=== PATIENT | male | born 1940 | race Caucasian/White ===

== ENCOUNTER → 2018-01-08 10:40 | Outpatient (CLI) | payer MEDICARE, SELFPAY ==
[2018-01-08 11:49] LABS: PSA,Total- Diagnostic 1.96 ng/mL (0.0-4.0)
== END ==
PROVIDERS: Visit Provider Urology
DX: C61 Malignant neoplasm of prostate (principal)
CPT/HCPCS: 36415; 84153

== ENCOUNTER → 2018-02-05 16:54 | Outpatient (CLI) | payer MEDICARE, SELFPAY ==
--- NOTE | 2018-02-05 08:45 | FLU_PTH ---
PATIENT: JEANNA ALONZO LOC: [facility] U#:[id number] AGE/SX: 84/M ROOM: RE02/05/[address]: Dr. Ameya Rebolledo MD : 1940 BED: DIS: SPEC #: [id number] RECD: 02/05/18 15:00 STATUS: LOIS ROD #: [id number] JUDY: 02/05/18 08:[address]: Ameya Rebolledo DEPT: CYTOLOGY RECD BY: Arsenio Peters ENTERED: 02/06/18 09:21 SP TYPE: Fluid OTHR DR: Dr. Maria Eugenia Garcia, Tissues: Urine Procedures: Pap Stain (control) Special Stain Group II Surgery Specimen Level IV Cytospin Fluid HEADER OPERATION: Not noted PRE-OP DIAGNOSIS: R31.0, Z85.46 TISSUE SUBMITTED: Urine for cytology DIAGNOSIS CYTOLOGY Urine for cytology (cytospin): Rare atypical urothelial cells present. AM:rg 5/10/18 COMMENT The findings are nonspecific and could represent a variety of conditions including infection, urolithiasis, instrumentation and low grade urothelial neoplasm. Clinical correlation is necessary. CYTOLOGY STUDY Slides are reviewed. CYTOLOGY GROSS Received is 40 ml of clear yellow fluid labeled with the patient's name and and designated per the requisition as urine. Submitted for cytology preparation. / CC:cc 02/06/18 TC:? CPT: 13188
[2018-02-05 16:56] LABS: Cytology, Body Fluid / CSF SEE PATHOLOGY REPORT
== END ==
PROVIDERS: Visit Provider Urology
DX: R31.0 Gross hematuria (principal); Z85.46 Personal history of malignant neoplasm of prostate
CPT/HCPCS: 88108; 88305; 88313

== ENCOUNTER 2018-05-23 18:02 | Emergency (ER) | payer MEDICARE, SELFPAY ==
[2018-05-23 18:03] VITALS: BP 116/61; PULSE 80; RESP 17; TEMP 36.7; O2SAT 99; BMI 27.3
--- NOTE | 2018-05-23 18:49 | ED.VISSUMM ---
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 Patient states that one month ago he felt like he had torn his right biceps. He was able to continue normal activity, however today while using pruning michele and abducting his arms together against the force of pruning trees, he felt and heard a pop in his right upper arm. He now has pain and swelling in the bicep. Pain is worse with flexion and radiates into the anterior and around into the posterior shoulder. He denies any other injuries. Physical Examination: Patient is afebrile and hemodynamically stable. Well-nourished and well-developed in no distress. Examination of the upper extremities shows asymmetry in the appearance of the biceps, most pronounced with supination of the forearm resulting in gloria bicep on the right. Patient has weakness with flexion and supination of the right upper extremity. Radial pulses 2+. Full range of motion of the shoulder, wrist and fingers. Unable to definitively palpate the biceps tendon. Test Results: [] Emergency Department Course and Treatment: Presentation is most consistent with a proximal biceps tendon rupture. Patient will use ice and [id number] pain medications as needed for pain. He will not bear any weight with the arm until he follows up with his orthopedic physician, for which he already has an appointment tomorrow. He was given a sling to use for comfort. Patient was discharged home. Treatment Plan: [] Disposition: [] Impression: ruptured biceps tendon, right arm This note was generated with Swipp dictation software. It may contain incorrect words, spelling, and punctuation that were not noted in review of the chart prior to signing ED Disposition - Plan for ED Patient: Disposition: Home or Assisted Living Chief Complaint: Upper Extremity Injury Instructions: ED Torn Rotator Cuff Referrals: Maria Eugenia Garcia DO [Primary Care Provider] - Richard Sargent DO [STAFF PHYSICIAN] - 1 Day Additional Instructions: You may have a torn biceps tendon in your right arm. Please keep your appointment with Dr. Rushing as scheduled for tomorrow. Ice your upper arm and wear the sling as needed for comfort. Avoid lifting any weight with the right arm and avoid too much movement. You may use Tylenol or ibuprofen as needed for pain. If you have any worsening of your condition or any new concerning symptoms, please return immediately to the emergency department for another evaluation.
--- NOTE | 2018-05-23 18:52 | DCINST.ED_ITS ---
ED Disposition - Plan for ED Patient: Disposition: Home or Assisted Living Chief Complaint: Upper Extremity Injury Instructions: ED Torn Rotator Cuff Referrals: Maria Eugenia Garcia DO [Primary Care Provider] - Richard Sargent DO [STAFF PHYSICIAN] - 1 Day Additional Instructions: You may have a torn biceps tendon in your right arm. Please keep your appointment with Dr. Rushing as scheduled for tomorrow. Ice your upper arm and wear the sling as needed for comfort. Avoid lifting any weight with the right arm and avoid too much movement. You may use Tylenol or ibuprofen as needed for pain. If you have any worsening of your condition or any new concerning symptoms, please return immediately to the emergency department for another evaluation.
[2018-05-23 19:00] VITALS: RESP 16
--- NOTE | 2018-05-23 19:00 | ED.RN ---
REVIEWED D/C INSTRUCTIONS, FOLLOW UP CARE, AND S/S THAT WOULD WARRANT A RETURN TO THE ED WITH PT. PT VERBALIZED AN UNDERSTANDING AND DENIES FURTHER QUESTIONS FOR THIS RN. PT SKIN P/W/D, RESP EVEN AND UNLABORED, PT A&O X 3, NO DISTRESS NOTED. PT AMBULATED OUT OF ED, GAIT STEADY.
== END 2018-05-23 19:02 | disposition home or self-care (01) ==
PROVIDERS: Emergency Provider Emergency Medicine
DX: M66.321 Spontaneous rupture of flexor tendons, right upper arm (principal); I10 Essential (primary) hypertension; E11.9 Type 2 diabetes mellitus without complications; Z79.84 Long term (current) use of oral hypoglycemic drugs; Z79.899 Other long term (current) drug therapy
CPT/HCPCS: 99283

== ENCOUNTER → 2018-07-12 09:50 | Outpatient (CLI) | payer MEDICARE, SELFPAY ==
[2018-07-12 11:12] LABS: PSA,Total- Diagnostic 2.09 ng/mL (0.0-4.0)
== END ==
PROVIDERS: Referring Provider Urology; Visit Provider Urology
DX: C61 Malignant neoplasm of prostate (principal)
CPT/HCPCS: 36415; 84153

== ENCOUNTER → 2018-07-24 07:21 | Outpatient (CLI) | payer MEDICARE, SELFPAY ==
--- NOTE | 2018-07-24 07:25 | NM_ITS ---
CLINICAL: 77-year-old male with reported history of carcinoma of the prostate. WHOLE BODY 99m Tc MDP RADIONUCLIDE BONE SCINTIGRAPHY COMPARISON: Previous whole body bone scintigraphy report 10/14/2010 FINDINGS: Following the intravenous administration of 26.6 mCi of 99m Tc MDP, whole body bone images reveal: 1. Increased radiopharmaceutical concentration is currently identified in the 10th-11th thoracic vertebra posteriorly on the left and right, third-fifth lumbar vertebra posteriorly on the left and right. 2. Enhanced uptake is defined in the sternoclavicular compartments of both shoulders, first cervical vertebra anteriorly-posteriorly on the left and right, bilateral wrist articulations, right-left hands, knees bilaterally, the bilateral elbows. 3. The remaining skeletal structures are scintigraphically unremarkable with normal-appearing renal images and urinary bladder activity identified. Prominent uptake is noted at the sternomanubrial synchondrosis. NM/Bone Scan Whole Body IMPRESSION: 1. The increase in radiopharmaceutical concentration currently defined in the lower thoracic and lower lumbar spine may be further investigated with plain radiography in the setting of known prostate carcinoma. 2. Degenerative arthritis appears evident in the bilateral shoulders, cervical spine, right and left wrists, both hands, bilateral knees, the right-left elbows. 3. Overall compared to the previous whole body bone scintigraphy study report dated 10/14/2010, the increase in radiopharmaceutical concentration currently identified in the thoracic and lumbar spine warrants further relapse vesication. Electronically Signed: Dave Gupta DO at 23:08 EDT Tel , Service support ,
== END ==
PROVIDERS: Referring Provider Urology; Visit Provider Urology
DX: C61 Malignant neoplasm of prostate (principal)
CPT/HCPCS: 78306

== ENCOUNTER → 2018-07-25 09:46 | Outpatient (CLI) | payer MEDICARE, SELFPAY ==
--- NOTE | 2018-07-25 09:49 | RAD_ITS ---
STUDY: X-RAY - LUMBAR SPINE REASON FOR EXAM: Male, 77 years old. Chronic pain TECHNIQUE: 5 view(s) of the lumbar spine were obtained. COMPARISON: None FINDINGS: Normal lumbar lordosis. There is no substantial scoliosis. There is a normal alignment of the vertebrae. There is multilevel endplate spondylosis of the lumbar vertebrae. There is multi-level degenerative disc disease with multi-level disc space narrowing. Numerous surgical clips are seen in the abdomen and pelvis. RAD/L/S Spine Min 4 Views IMPRESSION: Degenerative changes of the spine, as detailed above. No definite lytic or blastic osseous changes are seen. Electronically Signed: Scotty Lee MD at 17:05 EDT , Service support ,
--- NOTE | 2018-07-25 09:49 | RAD_ITS ---
STUDY: X-RAY - THORACIC SPINE REASON FOR EXAM: Male, 77 years old. Chronic pain TECHNIQUE: 3 view(s) of the thoracic spine were obtained. COMPARISON: None. FINDINGS: Normal kyphosis of the thoracic spine. There is no substantial scoliosis. There is multilevel endplate spondylosis of the thoracic vertebrae. Normal disc space heights. The soft tissue structures are unremarkable. RAD/Thoracic Spine 3 Views IMPRESSION: Diffuse endplate spondylosis of the thoracic spine. No definite lytic or blastic osseous changes are seen. There is no evidence of fracture or subluxation. Electronically Signed: Scotty Lee MD at 16:55 EDT , Service support ,
== END ==
PROVIDERS: Visit Provider Urology
DX: R93.89 Abnormal findings on diagnostic imaging of other specified body structures (principal); C67.9 Malignant neoplasm of bladder, unspecified; C61 Malignant neoplasm of prostate
CPT/HCPCS: 72072; 72110

== ENCOUNTER → 2019-01-17 | Outpatient (CLI) | payer MEDICARE, SELFPAY ==
[2019-01-17 09:16] LABS: PSA,Total- Diagnostic 2.36 ng/mL (0.0-4.0)
== END | disposition home or self-care (01) ==
LOC: LAB 08:30
PROVIDERS: Referring Provider Urology; Visit Provider Urology
DX: C61 Malignant neoplasm of prostate (principal)
CPT/HCPCS: 36415; 84153

== ENCOUNTER 2019-05-02 21:47 | Emergency (ER) | payer MEDICARE, SELFPAY ==
[2019-05-02 21:47] VITALS: BP 124/70; PULSE 79; RESP 15; TEMP 36.7; BMI 26.6
--- NOTE | 2019-05-02 22:50 | ED.VIS.UPPEX ---
History of Present Illness Chief Complaint: Upper Extremity Injury Informant: Patient Occurred: Yesterday Mechanism/Context: Injury Context: Sudden Onset - while swinging a golf club Timing: Continuous Quality of Pain: Aching Location: left forearm Current Severity: Mild Maximum Severity: Moderate Worsened by: extension of wrist, palpation affected area Relieved by: remaining still Associated Symptoms: Negative for: Parasthesia, Weakness, Loss of Funtion Narrative: Patient states he was golfing yesterday, suddenly felt a pop in the volar aspect of his right proximal forearm, and had pain since. It started bruising. He is on Plavix. He had no direct trauma to the area. He denies any numbness or tingling distally, he has been able to fully use his right upper extremity since this. He is right-hand dominant. He initially applied heat to the area after his advised this, the bruising became worse. He has been applying ice since. - Past Medical History (1) History of esophageal reflux Status: Chronic (2) History of gastrointestinal hemorrhage Status: Chronic (3) History of hypertension Status: Chronic (4) History of prostate cancer Status: Chronic (5) Old [place] (myocardial infarction) Status: Chronic (6) Type II diabetes mellitus Status: Chronic Past Medical History - Allergies and Home Meds Allergies/Adverse Reactions: Allergies chlorhexidine Allergy (Verified 05/02/19 21:50) Rash Penicillins Allergy (Verified 05/02/19 21:50) Unknown Sulfa (Sulfonamide Antibiotics) Allergy (Verified 05/02/19 21:50) Unknown Primary Care Physician: Maria Eugenia Garcia DO [Primary Care Provider] - Surgical History: TURP, aortic aneurysm repair 2002, of right renal hilar tumor 2008, 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 The tenderness is not severe. I can feel no focal nodule or defect subcutaneously. There is no tenderness at the common tendon, or on any of the bony prominences of the elbow or wrist. He has full range of motion of the elbow, wrist, and FDS/FDP of all fingers of the right hand. He has full extension, he states it increases his pain a little, all compartments are soft. Skin: - - Ecchymosis volar right forearm proximal half. No signs of infection or cellulitis. No signs of trauma. Neurological: Alert, Oriented x3, Cranial nerves II-XII grossly intact, Normal Strength, Normal Sensation, Normal Gait Psychological: Normal affect, Normal Mood Diagnostic/Tx/Re-eval - Medical Decision Making Patient is reassured, this is likely a tear of the muscle belly and not disruption of any of the tendons. Since he has no bony tenderness or defect of the tendons I do not think he needs x-rays at this time. An MRI would probably show him the answer, but may not even be indicated since he has full function. I recommend ice application, Tylenol as needed, following up with orthopedics. He is comfortable with that plan. ED Disposition - Plan for ED Patient: Disposition: Home or Assisted Living Diagnosis: Other injury of other flexor muscle, fascia and tendon at forearm level, right arm, initial encounter Instructions: MUSCLE STRAIN, Extremity Referrals: Jose Luis Borja MD [STAFF PHYSICIAN] - (call for appt) Additional Instructions: May be muscle tear given all of the bruising. Let pain be her guide and limit your activities.
== END 2019-05-02 23:10 | disposition home or self-care (01) ==
PROVIDERS: Emergency Provider Emergency Medicine
DX: S59.811A Other specified injuries right forearm, initial encounter (principal); K21.9 Gastro-esophageal reflux disease without esophagitis; I10 Essential (primary) hypertension; I25.2 Old myocardial infarction; E11.9 Type 2 diabetes mellitus without complications; Z85.46 Personal history of malignant neoplasm of prostate; Z79.4 Long term (current) use of insulin; Z79.02 Long term (current) use of antithrombotics/antiplatelets; Z79.82 Long term (current) use of aspirin; Z79.899 Other long term (current) drug therapy; X50.0XXA Overexertion from strenuous movement or load, initial encounter; Y93.53 Activity, golf; Y92.39 Other specified sports and athletic area as the place of occurrence of the external cause; Y99.8 Other external cause status
CPT/HCPCS: 99282

== ENCOUNTER → 2019-07-09 | Outpatient (CLI) | payer MEDICARE, SELFPAY ==
[2019-07-09 11:51] LABS: PSA,Total- Diagnostic 3.33 ng/mL (0.0-4.0)
== END | disposition home or self-care (01) ==
LOC: LAB 10:51
PROVIDERS: Referring Provider Urology; Visit Provider Urology
DX: C61 Malignant neoplasm of prostate (principal)
CPT/HCPCS: 36415; 84153

== ENCOUNTER → 2019-07-31 | Outpatient (CLI) | payer MEDICARE, SELFPAY ==
--- NOTE | 2019-07-31 07:55 | CT_ITS ---
STUDY: CT ABDOMEN AND PELVIS WITH AND WITHOUT CONTRAST REASON FOR EXAM: Male, 78 years old. Increasing PSA. History of prostate cancer, radiation therapy of the prostate, partial nephrectomy and bladder cancer. RADIATION DOSAGE (If Supplied By Facility): CTDIvol = ( 17.99 ) mGy, DLP = ( 2085.13 ) mGycm TECHNIQUE: Transaxial images were obtained from the dome of the diaphragm to the symphysis pubis without oral contrast. IV Isovue 370 100 was administered. Sagittal and coronal images were reconstructed. Individualized dose optimization techniques were used for this CT. COMPARISON: Prior abdomen exam of March 14, 2017 FINDINGS: Chronic bibasilar lung changes including subpleural fibrosis more progressive at the right lung base since the prior exam. Stable in the left lung base. The visualized portions of the heart are within normal limits. Normal liver. Normal gallbladder and extrahepatic biliary system. Normal spleen. Normal pancreas. Normal bilateral adrenal glands. Stable appearance of the right kidney. Negative for hydronephrosis or stones. Stable appearance of the left kidney. Stable cysts of the mid pole and lower pole of the left kidney. Negative for hydronephrosis or stones. Normal visualized stomach. Normal small intestine. Diverticulosis of the colon. there is a normal appendix which is herniated into the moderate size right inguinal hernia. Smaller fatty left inguinal hernia. There is diffuse atherosclerotic calcification of the abdominal aorta, without a demonstrated aneurysm. Normal inferior vena cava. Normal retroperitoneum. Nondistended small residual urinary bladder with the bladder wall thickness of 7 to 8 mm. Small amount of remaining prostate tissue status post brachytherapy. Normal abdominal wall. There are diffuse degenerative changes of the visualized lumbar spine. Negative for osteolytic or blastic bone lesions. CT/CT Abd/Pelvis W/WO Contrast IMPRESSION: Chronic bibasilar lung changes more progressive on the right since the prior examination. Unremarkable liver, spleen, pancreas and gallbladder. Stable appearance of the bilateral kidneys with simple cysts. Negative for hydronephrosis, renal masses or stones. Small volume urinary bladder with a wall thickness of 7 to 8 mm. Small amount of residual tissue in the prostate area status post brachytherapy. No acute bowel related findings. Diverticulosis. Normal appendix currently herniated into a moderate size fatty right inguinal hernia. Smaller fat-containing left inguinal hernia. Negative for abdominal, pelvic or inguinal adenopathy. Negative for osteolytic or blastic bone lesions. Electronically Signed: Lauren Chacon MD at 20:29 EDT , Service support ,
[2019-07-31 08:30] LABS: CREATININE FINGERSTICK 1.5 mg/dL (0.70-1.30)
== END | disposition home or self-care (01) ==
LOC: CT 07:54
PROVIDERS: Referring Provider Urology; Visit Provider Urology
DX: C61 Malignant neoplasm of prostate (principal); R97.20 Elevated prostate specific antigen [PSA]
CPT/HCPCS: 74178; Q9967

== ENCOUNTER → 2019-08-07 | Outpatient (CLI) | payer MEDICARE, SELFPAY ==
--- NOTE | 2019-08-07 09:52 | NM_ITS ---
CLINICAL: 78-year-old male with reported history of carcinoma of the prostate. WHOLE BODY 99m Tc MDP RADIONUCLIDE BONE SCINTIGRAPHY COMPARISON: Previous whole body bone scintigraphy study dated 07/24/2018, plain film radiograph reports thoracic and lumbar spine 07/25/2018 FINDINGS: Following the intravenous administration of 27.0 mCi of 99m Tc MDP, whole body bone images reveal: 1. Persistent relatively unchanged increased radiopharmaceutical concentration remains apparent in the cervical, thoracic and lumbar spine, bilateral wrists, the right hand, acromioclavicular, sternoclavicular and glenohumeral compartments of both shoulders, patellofemoral compartments of both knees. 2. The remaining skeletal structures are scintigraphically unremarkable with normal-appearing renal images and urinary bladder activity identified. NM/Bone Scan Whole Body IMPRESSION: 1. The increase in radiopharmaceutical concentration persistently defined in the cervical, thoracic and lumbar spine, both wrists reticulations, right hand, bilateral shoulders, right and left knees remains most consistent with degenerative arthritis. 2. Overall compared to the previous whole body bone scintigraphy study dated 07/24/2018, there is no significant interval change. No current typical scintigraphic evidence of diffuse axial skeletal metastatic disease is demonstrated on the present examination. Electronically Signed: Dave Gupta DO at 23:56 EST Tel , Service support ,
== END | disposition home or self-care (01) ==
LOC: NM 09:50
PROVIDERS: Referring Provider Urology; Visit Provider Urology
DX: C61 Malignant neoplasm of prostate (principal)
CPT/HCPCS: 78306

== ENCOUNTER → 2019-10-08 10:52 | Outpatient (CLI) | payer MEDICARE, SELFPAY ==
[2019-10-08 11:36] LABS: PSA,Total- Diagnostic 3.71 ng/mL (0.0-4.0)
== END ==
PROVIDERS: Referring Provider Urology; Visit Provider Urology
DX: C61 Malignant neoplasm of prostate (principal)
CPT/HCPCS: 36415; 84153

== ENCOUNTER → 2020-02-18 13:21 | Outpatient (CLI) | payer MEDICARE, SELFPAY ==
--- NOTE | 2020-02-18 13:25 | CT_ITS ---
STUDY: CT ABDOMEN AND PELVIS WITH AND WITHOUT CONTRAST REASON FOR EXAM: Male, 79 years old. HEMATURIA -- HX-PROSTATE, BLADDER,KIDNEY CA -- SURG-partial right nephrectomy, AAA repair, brachytherapy, bladder surgery RADIATION DOSAGE (If Supplied By Facility): CTDIvol = ( 22.22 ) mGy, DLP = ( 2795.50 ) mGycm TECHNIQUE: Transaxial images were obtained from the dome of the diaphragm to the symphysis pubis without oral contrast. IV 75mL Isovue-370 was administered. Sagittal and coronal images were reconstructed. Individualized dose optimization techniques were used for this CT. COMPARISON: July 31, 2019. FINDINGS: There are chronic interstitial fibrotic changes of the lung bases. There are coronary artery calcifications. Normal liver. Normal gallbladder and extrahepatic biliary system. Normal spleen. Normal pancreas. Normal bilateral adrenal glands. There is a heterogeneous region of scarring and focal calcification at the upper pole of the right kidney. There are 4.5 and 2.1 cm cysts of the left kidney. There is no hydronephrosis. There is a small hiatal hernia. Normal small intestine. There are multiple colonic diverticula consistent with diverticulosis. The appendix is visualized and appears normal. Atherosclerotic calcifications of the aorta. There is adjacent postoperative change of the distal aorta and proximal iliac arteries Normal inferior vena cava. Normal retroperitoneum. Normal urinary bladder. There are prostate seed implants. Normal abdominal wall. There are diffuse degenerative changes of the visualized lumbar spine. CT/CT Abd/Pelvis W/WO Contrast IMPRESSION: Stable post treatment changes of the right kidney. Left renal cysts. No stones or hydronephrosis. Colonic diverticulosis. No obstruction or abscess. Hiatal hernia. Prostate seed implants. Electronically Signed: Hemant Leggett MD at 14:27 EDT , Service support ,
[2020-02-18 13:40] LABS: CREATININE FINGERSTICK 1.7 mg/dL (0.70-1.30)
== END ==
PROVIDERS: Referring Provider Nurse Practitioner Adult Health; Visit Provider Nurse Practitioner Adult Health
DX: R31.0 Gross hematuria (principal); Z85.51 Personal history of malignant neoplasm of bladder; Z85.46 Personal history of malignant neoplasm of prostate; Z85.528 Personal history of other malignant neoplasm of kidney
CPT/HCPCS: 74178; Q9967

== ENCOUNTER 2020-03-05 08:44 | Day surgery (SDC) | payer MEDICARE, SELFPAY ==
--- NOTE | 2020-03-01 11:40 | EKG12_ITS ---
Test Reason : PRE-OP Blood Pressure : / mmHG Vent. Rate : 074 BPM Atrial Rate : 074 BPM P-R Int : 190 ms QRS Dur : 088 ms QT Int : 380 ms P-R-T Axes : 057 056 060 degrees QTc Int : 421 ms Normal sinus rhythm Normal ECG Confirmed by SHU ELIZABETH, SUN ([id number]), editorial assistant NESSA MALDONADO ([id number]) on 03/02/2020 1:46:27 PM Referred By: FLORENCE DAO Confirmed By:SUN IRELAND MD
[2020-03-01 12:27] LABS: Hematocrit 35.8 % (40-54); Hemoglobin 11.4 g/dL (13.0-16.5); Mean Corp Hgb Conc 31.8 g/dL (32-36); Mean Corpuscular Hgb 27.1 pg (27.0-32.0); Mean Platelet Vol. 9.6 fl (6.2-12.0); Platelet Count 218 K/mm3 (150-450); RBC Distribution Width CV 14.7 % (11.6-14.6); Red Blood Count 4.21 M/mm3 (4.6-6.2); White Blood Count 4.1 K/mm3 (4.4-11.0)
[2020-03-01 13:09] LABS: Anion Gap 11 (5-15); BUN 31 mg/dL (7-18); BUN/Creat Ratio 16.6 RATIO (10-20); Calcium,Total 9.3 mg/dL (8.5-10.1); Chloride 106 mmol/L (98-107); Creatinine, Serum 1.87 mg/dL (0.70-1.30); EST Glomerular Filtration Rate 37 mL/min (>60); Est Glom Filt Rate - Afr Amer 45 mL/min (>60); Glucose 66 mg/dL (74-106); Potassium 3.4 mmol/L (3.5-5.1); Sodium Level 140 mmol/L (136-145)
[2020-03-04 15:21] LABS: Probe Check PASS; Specimen Processing Control PASS
--- NOTE | 2020-03-05 | BLB_PTH ---
PATIENT: JEANNA ALONZO LOC: [facility] [place] U#:[id number] AGE/SX: 79/M ROOM: RE03/05/[address]: Dr. Ameya Rebolledo MD : 1940 BED: DIS: 03/05/2020 SPEC #: [id number] RECD: 03/05/20 13:00 STATUS: LOIS ROD #: [id number] JUDY: 03/05/20 00:[address]: Ameya Rebolledo DEPT: SURGICAL PATHOLOGY RECD BY: Taco Ram ENTERED: 03/05/20 13:00 SP TYPE: TURB OTHR DR: Dr. Maria Eugenia Garcia, DO Tissues: Urinary bladder, NOS Procedures: Surgery Specimen Level V HEADER OPERATION: Cysto, TURBT with fulguration PRE-OP DIAGNOSIS: History bladder tumor TISSUE SUBMITTED: Bladder tumor MICROSCOPIC DIAGNOSIS Urinary bladder tumor, transurethral resection: Papillary urothelial carcinoma. See comment. AM:bowen 03/08/20 COMMENT BLADDER CANCER (TUR) SUMMARY Procedure: Transurethral resection of bladder (TURBT) Tumor site: not specified Histologic type: Papillary urothelial carcinoma Associated epithelial lesions: None identified Histologic grade: WHO low grade Tumor configuration: Papillary Muscularis propria invasion: No muscularis propria is present in the biopsy. Lymphovascular invasion: not identified Tumor extension: Confined to urothelium Additional pathologic findings: Chronic cystitis. The above summary is in compliance with [employer] (CAP) Cancer Protocols Checklist and [place] Joint Committee on Cancer (AJCC), Staging Manual, 8th Ed. Immunohistochemistry ([id number]) supports the above diagnosis. Case has been reviewed in consultation with Dr. Dominguez who concurs with the above diagnosis. IDC:SOPHIE MICROSCOPIC DESCRIPTION Slides are reviewed. GROSS DESCRIPTION Received in fixative is one container labeled with the patient's name and designated bladder tumor. The specimen consists of three irregular fragments of mast soft tissue that in aggregate measure 0.3 x 0.2 x 0.1 cm. The specimen is totally submitted in one cassette. / SJ:bowen 03/05/20 TC:0 CPT: 45925
--- NOTE | 2020-03-05 | IMM_PTH ---
PATIENT: JEANNA ALONZO [place] [facility] [place][id number] AGE/SX: 79/M ROOM: RE03/05/[address]: Dr. Ameya Rebolledo MD : 1940 BED: DIS: 03/05/2020 SPEC #: [id number] RECD: 03/08/20 12:31 STATUS: LOIS REQ #: [id number] JUDY: 03/05/20 00:[address]: Ameya Rebolledo DEPT: IMMUNOHISTOCHEMISTRY RECD BY: Chata Mac ENTERED: 03/08/20 12:32 SP TYPE: IMMUNO OTHR DR: Dr. Maria Eugenia Garcia, DO Tissues: Urinary bladder, NOS Procedures: CK20 (add) MACRO (add) P53 (add) Vimentin (add) CD44 (add) CK7 (initial) PHYSICIAN & INSTITUTION [place] [id number] SPECIMEN INFORMATION: Tissue Source: Bladder tumor, TURBT Clinical Info: Bladder tumor Specimen Number: [id number] CPT code: 72308, 72669 x5 METHODOLOGY: Deparaffinized sections of prefer/formalin-fixed tissue or PAP/DQ stained slides are incubated with monoclonal/polyclonal antibodies/oligonucleotide probes. Localization is made via biotin free immunoperoxidase method. Appropriate controls are performed and reacted as expected. Results on target cell population are indicated in the following table: RESULTS: ANTIBODY / CLONE RESULT anti-CD44 (SP37) positive CK7 (OV-TL12/30) positive CK20 (KS20.8) positive P53 (DO-7) positive, 25%, dim Macro (HAM-56) positive, focal Vimentin (V9) negative These tests were developed and their performance characteristics determined by [facility]. They may not have been cleared or approved by the U.S. Food and Drug Administration. The FDA has determined that such clearance or approval is not necessary. The above immunohistochemical/dualISH markers are ordered and reviewed by the Pathologist. INTERPRETATION: Bladder tumor, TURBT: Consistent with low grade urothelial carcinoma. AM:bowen 03/09/20
[2020-03-05 09:17] VITALS: BP 112/68; PULSE 79; RESP 16; TEMP 36.7; O2SAT 98; BMI 26.6
[2020-03-05] MEDS: Lactated Ringers 1,000 ML 100 ML IV (09:34)
[2020-03-05 10:16] LABS: Bedside Glucose 111 mg/dL (70-110)
--- NOTE | 2020-03-05 10:55 | PCM.HP.STD ---
History of Present Illness Date of Admission: 03/05/20 Chief Complaint: Bladder cancer The patient is a 79 year old male with history of a bladder cancer comes back to the office with a cystoscopy in the office demonstrated multiple tumors on the lateral wall of the patient's left side of the bladder today working to proceed with a transurethral resection of these multiple tumors. Past Medical History Past Medical History (Chronic Problems): Chronic Problems Old RI (myocardial infarction) (Chronic) History of prostate cancer (Chronic) History of hypertension (Chronic) History of gastrointestinal hemorrhage (Chronic) History of esophageal reflux (Chronic) Type II diabetes mellitus (Chronic) Allergies chlorhexidine Allergy (Verified 03/05/20 09:15) Rash Penicillins Allergy (Verified 03/05/20 09:15) Unknown Sulfa (Sulfonamide Antibiotics) Allergy (Verified 03/05/20 09:15) Unknown Home Medications: Ambulatory Orders Medication Instructions Recorded Amlodipine [Norvasc] 5 mg PO DAILY 11/17/13 Atenolol [Tenormin] 25 mg PO DAILY 11/17/13 Furosemide [Lasix] 40 mg PO DAILY 11/17/13 Glimepiride [Amaryl] 4 mg PO DAILY 11/17/13 Lisinopril [Zestril] 40 mg PO DAILY 11/17/13 Nitroglycerin (INPATIENT USE) 0.4 mg SUBLINGUAL Q5M PRN 11/17/13 [Nitrostat] Sildenafil Citrate [Viagra] 100 mg PO PRN PRN 11/17/13 metFORMIN HCl [Glucophage] 2 tab PO DAILY 11/17/13 Lansoprazole [Prevacid] 15 mg PO BID 05/28/14 Aspirin 81 mg PO DAILY 05/02/19 Dulaglutide [Trulicity] 15 ml SQ QWEEK 05/02/19 Ergocalciferol (Vitamin D2) 1 tab PO .2WEEK 05/02/19 [Vitamin D2] Fenofibrate 1 tab PO DAILY 05/02/19 Insulin Glargine,Hum.rec.anlog 26 unit SQ DAILY 05/02/19 [Corey Rodrigues] Surgical History: TURP, aortic aneurysm repair 2002, of right renal hilar tumor 2008, 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, with fulguration and coagulation October 2012, artery stents Smoking Status: Former smoker Tobacco Use: Non-smoker Review of Systems Constitutional: Denies: Chills, Fever, Weight Change HEENT: Denies: Head Aches, Sinus Congestion, Sinus Drainage Cardiovascular: Denies: Chest Pain, Palpitations Respiratory: Denies: Cough, Shortness of breath at rest, Sputum production Gastrointestinal: Denies: Abdominal Pain, Nausea, Vomiting Genitourinary: Denies: Dysuria Musculoskeletal: Denies: Joint Pain, Joint Tenderness Skin: Denies: Rash, Wounds Neurological: Denies: Numbness, Tingling, Focal weakness Psychiatric: Denies: Anxiety, Depression, Homicidal Ideations, Suicidal Ideations Hematologic/ Lymphatic: Denies: Easy Bruising, Easy Bleeding VTE Information - Inpt Only VTE Present on Admission: No VTE Mechan Device Prophylaxis: SCD's - Physical Exam Vitals/I&O's: Vital Signs Temp Pulse Resp BP Pulse Ox 98.1 F 79 16 112/68 98 03/05/20 09:17 03/05/20 09:17 03/05/20 09:17 03/05/20 09:17 03/05/20 09:17 Oxygen Delivery Method Room Air Weight: 79.3 kg Body Mass Index (BMI) 26.6 General: Alert, Oriented x3, Cooperative HEENT: Atraumatic, PERRLA, EOMI, Normocephalic Neck: Supple, No JVD, Negative Carotid Bruits Lungs: Clear to auscultation, Normal air movement Cardiovascular: Regular rate, No murmurs Abdomen: Bowel Sounds Present, Soft, Non Tender Extremities: No edema, Capillary Refill Less than 3 Seconds Skin: No rashes, No breakdown Musculoskeletal: No Tenderness to Palpation of Joints or Extremities Neurological: Cranial nerves II-XII grossly intact Psych/Mental Status: Normal Affect, Appropriate Laboratory Results 03/04/20 10:40: COVID-19 (JULEE) Negative 03/05/20 09:18: POC Glucose 111 H Current Medications Cefazolin Sodium 2 gm/ Sodium (Chloride) 110 mls @ 150 mls/hr IV PREOP ONE Stop: 03/05/20 10:58 Lactated Ringer's () 1,000 mls @ 100 mls/hr IV .Q10H AMI Last Admin: 03/05/20 09:34 Dose: 100 mls/hr Documented by: Assessment/Plan Plan to proceed with resection of bladder tumors instillation mitomycin-C.
--- NOTE | 2020-03-05 10:57 | PCM.DC.URO ---
Discharge Diet: Light diet - advance as tolerated Discharge Activity: Return to Normal Activity, May Not Drive, May not drive while taking narcotic pain medications., May Shower Call your doctor if your incision/area has: Continuous Slow Oozing Call your doctor if you observe: Fever of 101 or Higher Allergies/Adverse Reactions: Allergies chlorhexidine Allergy (Verified 03/05/20 09:15) Rash Penicillins Allergy (Verified 03/05/20 09:15) Unknown Sulfa (Sulfonamide Antibiotics) Allergy (Verified 03/05/20 09:15) Unknown Medications to take at Discharge Amlodipine [Norvasc] 5 mg PO DAILY 11/17/13 Atenolol [Tenormin] 25 mg PO DAILY 11/17/13 Furosemide [Lasix] 40 mg PO DAILY 11/17/13 Glimepiride [Amaryl] 4 mg PO DAILY 11/17/13 Lisinopril [Zestril] 40 mg PO DAILY 11/17/13 Nitroglycerin (INPATIENT USE) [Nitrostat] 0.4 mg SUBLINGUAL Q5M PRN 11/17/13 Sildenafil Citrate [Viagra] 100 mg PO PRN PRN 11/17/13 metFORMIN HCl [Glucophage] 2 tab PO DAILY 11/17/13 Lansoprazole [Prevacid] 15 mg PO BID 05/28/14 Aspirin 81 mg PO DAILY 05/02/19 Dulaglutide [Trulicity] 15 ml SQ QWEEK 05/02/19 Ergocalciferol (Vitamin D2) [Vitamin D2] 1 tab PO .2WEEK 05/02/19 Fenofibrate 1 tab PO DAILY 05/02/19 Insulin Glargine,Hum.rec.anlog [Toujeo Solostar] 26 unit SQ DAILY 05/02/19 Cephalexin [Keflex] 500 mg PO Q8 #9 cap 03/05/20 The following prescriptions were given: Cephalexin [Keflex] 500 mg PO Q8 #9 cap Transmission Status: Pending to [facility] Primary Care Physician: Maria Eugenia Garcia DO [Primary Care Provider] - Test Results: Test results from this visit will be discussed in further detail at your follow-up appointment, if applicable. Please Follow Up With: Ameya Rebolledo MD When: in 2 weeks, please call to make an appointment.
[2020-03-05] MEDS: Cefazolin 2 GM in 0.9% Normal Saline 100 ML IV (11:11)
--- NOTE | 2020-03-05 11:43 | OP.PCM_ITS ---
Report of Operation Date of Procedure: 03/05/20 Pre-Operative Diagnosis: Bladder cancer in the trigone of the bladder left side. Post-Operative Diagnosis: The same Surgery/Procedure Performed:: Cystoscopy, placement of a left ureteral catheter, transurethral resection of a bladder tumor and instillation of mitomycin-C. Description of Surgical Findings:: 79-year-old male was taken back to the operating room at the smooth induction of general anesthesia he was placed supine on the table in the dorsolithotomy position. The penis and testicles were prepped and draped in the usual sterile fashion. Went into the bladder with a 21 Slovenian cystoscope the entire length of the urethra was normal at the bulbar urethra was some slight narrowing but is able to get through that without tearing or problems went through the prostate, and then past the verumontanum he had a open prostate with no obstruction, I then went into the bladder the bladder neck was somewhat tight and rigid he had a prior history of radiation is very scarred and prostate very rigid prostate. Then inspected the bladder and he had a tumor that was in the left trigone left lateral wall of the bladder. The tumor measured 2 cm x 3 cm in size. I then used the forceps to take multiple resections of the tumor through the cystoscope to do a transurethral resection after the tumor was resected out I then cannulized the left ureteral orifice in order to find it to avoid cauterizing the orifice it was extremely close to the tumor. I advanced a catheter up the left ureter and then it one-sided secured access to the left ureter and knew exactly where it was then I extensively cauterized the tumor and tumor base circumferentially until I got the entire tumor cauterized. I then remove the catheter there was urine draining from the left kidney I inspected the bladder again both with 30 and 70 degree lens no other tumors were visible within the bladder I then drained the bladder and placed 40 cc of 40 mg of mitomycin-C into the bladder and the patient's anesthetic was reversed and taken back to PACU good condition. I went spoke to his . Type of Anesthesia:: General Drains: none - Admit VTE Documentation VTE Present on Admission: No VTE Mechan Device Prophylaxis: SCD's
[2020-03-05 12:00] VITALS: BP 106/64; BP 112/68; PULSE 87; RESP 18; TEMP 37.2; O2SAT 95
[2020-03-05 12:06] VITALS: BP 112/68; BP 91/57; PULSE 82; RESP 18; O2SAT 99
[2020-03-05 12:11] LABS: Bedside Glucose 84 mg/dL (70-110)
[2020-03-05 12:15] VITALS: BP 102/69; BP 112/68; PULSE 79; RESP 18; O2SAT 98
[2020-03-05 12:21] VITALS: BP 109/72; BP 112/68; PULSE 82; RESP 18; TEMP 36.8; O2SAT 98
[2020-03-05 13:30] VITALS: BP 109/70; BP 112/68; PULSE 58; RESP 16; TEMP 36.1; O2SAT 98
== END 2020-03-05 13:40 | disposition home or self-care (01) ==
LOC: SDC 08:45 → AC 08:45
PROVIDERS: Anesthesiology; Visit Provider Urology
PROC: 0TBB8ZX Excision of Bladder, Via Natural or Artificial Opening Endoscopic, Diagnostic (ICD-10-PCS; CPT 52250; principal; 2020-03-05 10:40)
DX: C67.0 Malignant neoplasm of trigone of bladder (principal); I25.2 Old myocardial infarction; I10 Essential (primary) hypertension; K21.9 Gastro-esophageal reflux disease without esophagitis; E11.9 Type 2 diabetes mellitus without complications; E78.00 Pure hypercholesterolemia, unspecified; Z85.46 Personal history of malignant neoplasm of prostate; Z87.891 Personal history of nicotine dependence; Z79.4 Long term (current) use of insulin; Z79.82 Long term (current) use of aspirin; Z79.899 Other long term (current) drug therapy; Z95.5 Presence of coronary angioplasty implant and graft; Z11.59 Encounter for screening for other viral diseases
CPT/HCPCS: 52235; 53899; 36415; 80048; 82962; 83036; 85027; 87635; 88307; 88341; 88342; 93005; G2023; J7120; C1769; J2405; J3490; J9280; U0003

== ENCOUNTER → 2020-04-15 | Outpatient (CLI) | payer MEDICARE, SELFPAY | END | disposition home or self-care (01) | LOC: LABSPEC 17:59 | PROVIDERS: Referring Provider Internal Medicine Gastroenterology; Visit Provider Internal Medicine Gastroenterology | DX: Z11.59 Encounter for screening for other viral diseases (principal); K21.9 Gastro-esophageal reflux disease without esophagitis | CPT/HCPCS: 87635; G2023; U0003 ==

== ENCOUNTER → 2020-06-21 | Outpatient (CLI) | payer MEDICARE, SELFPAY ==
[2020-06-21 13:01] LABS: PSA,Total- Diagnostic 4.04 ng/mL (0.0-4.0)
== END | disposition home or self-care (01) ==
LOC: LAB 11:08
PROVIDERS: Visit Provider Urology
DX: C61 Malignant neoplasm of prostate (principal)
CPT/HCPCS: 36415; 84153

== ENCOUNTER → 2020-06-22 | Outpatient (CLI) | payer MEDICARE, SELFPAY ==
--- NOTE | 2020-06-22 | FLU_PTH ---
PATIENT: JEANNA ALONZO LOC: [facility] U#:[id number] AGE/SX: 79/M ROOM: RE06/22/[address]: Dr. Ameya Rebolledo MD : 1940 BED: DIS: 06/22/2020 SPEC #: [id number] RECD: 06/22/20 12:13 STATUS: LOIS ROD #: [id number] JUDY: 06/22/20 00:[address]: Ameya Rebolledo DEPT: CYTOLOGY RECD BY: Arsenio Peters ENTERED: 06/22/20 12:15 SP TYPE: Fluid OTHR DR: Dr. Maria Eugenia Garcia, DO Tissues: Urine Procedures: Special Stain Group II Cytospin Fluid HEADER OPERATION: Not noted PRE-OP DIAGNOSIS: Malignant neoplasm of bladder TISSUE SUBMITTED: Urine for cytology DIAGNOSIS CYTOLOGY Urine for cytology (cytospin): Atypical urothelial cells noted. Marked acute inflammation. See comment. SJ:bowen 06/23/20 COMMENT Clinical correlation and appropriate follow up are necessary. Please make reference to previous specimen ([id number]) urinary bladder tumor, TUR with diagnosis of papillary urothelial carcinoma. CYTOLOGY STUDY Slides are reviewed. CYTOLOGY GROSS Received is 15 ml of yellow hazy fluid labeled with the patient's name and and designated per the requisition as urine. Submitted for cytology preparation. / bowen 06/22/20 TC:2 CPT: 93523
[2020-06-22 11:46] LABS: Cytology, Body Fluid / CSF SEE PATHOLOGY REPORT
== END | disposition home or self-care (01) ==
LOC: LABSPEC 11:12
PROVIDERS: Referring Provider Urology; Visit Provider Urology
DX: Z85.51 Personal history of malignant neoplasm of bladder (principal)
CPT/HCPCS: 88108; 88313

== ENCOUNTER → 2020-10-04 08:52 | Outpatient (CLI) | payer MEDICARE, SELFPAY ==
[2020-10-04 10:18] LABS: PSA,Total- Diagnostic 3.41 ng/mL (0.0-4.0)
== END ==
PROVIDERS: Referring Provider Urology; Visit Provider Urology
DX: C61 Malignant neoplasm of prostate (principal)
CPT/HCPCS: 36415; 84153

== ENCOUNTER → 2020-10-05 | Outpatient (CLI) | payer MEDICARE, SELFPAY ==
--- NOTE | 2020-10-05 | CYSPIN_PTH ---
PATIENT: JEANNA ALONZO LOC: [facility] U#:[id number] AGE/SX: 79/M ROOM: RE10/05/[address]: Dr. Ameya Rebolledo MD : 1940 BED: DIS: 10/05/2020 SPEC #: [id number] RECD: 10/05/20 11:43 STATUS: LOIS RELisa #: [id number] JUDY: 10/05/20 00:[address]: Ameya Rebolledo DEPT: CYTOLOGY RECD BY: Taco aRm ENTERED: 10/05/20 11:43 SP TYPE: CYSPIN FL OTHR DR: Dr. Maria Eugenia Garcia, DO Tissues: Urine Procedures: Pap Stain (control) Special Stain Group II Cytospin Fluid HEADER OPERATION: Not noted PRE-OP DIAGNOSIS: Malignant neoplasm of bladder TISSUE SUBMITTED: Urine for cytology DIAGNOSIS CYTOLOGY Urine for cytology (cytospin): Positive for malignant cells consistent with urothelial carcinoma. AM:bowen 10/06/2020 COMMENT Case has been reviewed in consultation with Dr. Dominguez who concurs with the above diagnosis. IDC:SJ CYTOLOGY STUDY Slides are reviewed. CYTOLOGY GROSS Received is <0.25 ml of yellow cloudy fluid labeled with the patient's name and and designated per the requisition as urine. Submitted for cytology preparation. / bowen 10/05/2020 TC:0 CPT: 65826
[2020-10-05 11:13] LABS: Cytology, Body Fluid / CSF SEE PATHOLOGY REPORT
== END | disposition home or self-care (01) ==
LOC: LABSPEC 10:50
PROVIDERS: Referring Provider Urology; Visit Provider Urology
DX: Z85.51 Personal history of malignant neoplasm of bladder (principal)
CPT/HCPCS: 88108; 88313

== ENCOUNTER → 2021-07-25 | Outpatient (CLI) | payer MEDICARE, SELFPAY ==
--- NOTE | 2021-07-25 | IMM_PTH ---
PATIENT: JEANNA ALONZO LOC: [facility] U#:[id number] AGE/SX: 80/M ROOM: RE07/25/[address]: Dr. Moshe Shields MD : 1940 BED: DIS: 07/25/2021 SPEC #: [id number] RECD: 07/27/21 13:45 STATUS: LOIS REQ #: [id number] JUDY: 07/25/21 00:[address]: Moshe Shields DEPT: IMMUNOHISTOCHEMISTRY RECD BY: Chata Mac ENTERED: 07/27/21 13:46 SP TYPE: IMMUNO OTHR DR: Dr. Maria Eugenia Garcia, DO Tissues: Esophageal mucous membrane Procedures: P53 (initial) KI-67 (add) PHYSICIAN & INSTITUTION [place] [id number] SPECIMEN INFORMATION: Tissue Source: Distal esophagus Clinical Info: Dysphagia, Jose?s, esophageal cancer Specimen Number: [id number] CPT code: 83140, 50283 METHODOLOGY: Deparaffinized sections of prefer/formalin-fixed tissue or PAP/DQ stained slides are incubated with monoclonal/polyclonal antibodies/oligonucleotide probes. Localization is made via biotin free immunoperoxidase method. Appropriate controls are performed and reacted as expected. Results on target cell population are indicated in the following table: RESULTS: ANTIBODY / CLONE RESULT P53 (DO-7) negative Ki-67 (30-9) positive, low These tests were developed and their performance characteristics determined by [facility]. They may not have been cleared or approved by the U.S. Food and Drug Administration. The FDA has determined that such clearance or approval is not necessary. The above immunohistochemical/dualISH markers are ordered and reviewed by the Pathologist. INTERPRETATION: Distal esophagus, biopsy: Negative for dysplasia. SOPHIE:bowen 07/28/2021
--- NOTE | 2021-07-25 11:15 | EGD_PTH ---
PATIENT: JEANNA ALONZO LOC: [facility] U#:[id number] AGE/SX: 80/M ROOM: RE07/25/[address]: Dr. Moshe Shields MD : 1940 BED: DIS: 07/25/2021 SPEC #: [id number] RECD: 07/25/21 15:08 STATUS: LOIS RELisa #: [id number] JUDY: 07/25/21 11:[address]: Moshe Shields DEPT: SURGICAL PATHOLOGY RECD BY: Arsenio Peters ENTERED: 07/26/21 09:10 SP TYPE: EGD BIOPSY [facility] DR: Dr. 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 Moderate chronic inflammation. Negative for dysplasia. See comment. SOPHIE:bowen 07/27/2021 COMMENT Alcian blue/PAS stain with matched control is used in the evaluation of the specimen. Immunohistochemistry ([id number]) for P53 and Ki-67 will be performed and results will be reported separately. MICROSCOPIC DESCRIPTION Slides are reviewed. GROSS DESCRIPTION Received in fixative is one container labeled with the patient's name and designated distal esophagus. The specimen consists of multiple irregular fragments of light mast soft tissue that in aggregate measure 0.4 x 0.2 x 0.1 cm. The specimen is totally submitted in one cassette. / SOPHIE:bowen 07/26/21 TC:5 CPT: 29593, 82934
== END | disposition home or self-care (01) ==
LOC: LABSPEC 15:47
PROVIDERS: Referring Provider Internal Medicine Gastroenterology; Visit Provider Internal Medicine Gastroenterology
DX: R13.10 Dysphagia, unspecified (principal); Z85.01 Personal history of malignant neoplasm of esophagus
CPT/HCPCS: 88305; 88313; 88341; 88342

== ENCOUNTER 2021-09-09 11:11 | Emergency (ER) | payer MEDICARE, SELFPAY ==
[2021-09-09 11:12] VITALS: BP 167/86; PULSE 95; RESP 18; TEMP 36.6; O2SAT 95; BMI 23.6
--- NOTE | 2021-09-09 11:58 | EX.ED.GENINJ ---
HPI History of Present Illness Chief Complaint: Bite Informant: patient Onset/Context/Timing Onset: Today Mechanism/Context: other (Tick bite) Quality of Pain: Sharp Location: Back Worsened by: Palpation Relieved by: Nothing Associated Symptoms Associated Symptoms: Negative for Parasthesias, Weakness, Loss of function, Inability to ambulate, Loss of consciousness and Amnesia Narrative Narrative: Patient presents with a tick bite that was noticed today. Patient is unsure when he was bitten by the tick. Patient states that his was able to remove the tick today. Patient is concerned that there may be remnants of the tick still in his skin. Patient denies any fevers or chills. Patient admits to mild nausea. Patient denies any vomiting. Patient states his last tetanus was within 5 years. Patient states his pain is stinging and sharp with palpation. Tetanus Immunization: <5 years PFSH [facility] Medical History Cancer Diabetes GERD (gastroesophageal reflux disease) History of gastrointestinal hemorrhage History of prostate cancer Hypertension Kidney disease Home Medications amlodipine 5 mg PO DAILY 11/17/13 [History Last Taken 03/05/20 07:30] atenolol 25 mg PO DAILY 11/17/13 [History Last Taken 03/05/20 07:30] furosemide 40 mg PO DAILY 11/17/13 [History Last Taken Unknown] glimepiride 4 mg PO BID 11/17/13 [History Last Taken Unknown] lisinopril 40 mg PO DAILY 11/17/13 [History Last Taken 03/05/20 07:30] metformin 2 tab PO DAILY 11/17/13 [History Last Taken Unknown] nitroglycerin 0.4 mg SUBLINGUAL Q5M PRN 11/17/13 [History Last Taken Unknown] sildenafil [Viagra] 100 mg PO PRN PRN 11/17/13 [History Last Taken Unknown] aspirin 81 mg PO DAILY 05/02/19 [History Last Taken Unknown] ergocalciferol (vitamin D2) 1 tab PO .2WEEK 05/02/19 [History Last Taken Unknown] fenofibrate 1 tab PO DAILY 05/02/19 [History Last Taken Unknown] doxycycline monohydrate 100 mg PO BID #20 capsule 09/09/21 [Rx Last Taken Unknown] dulaglutide [Trulicity] 0.75 mg SUBCUT FLETCHER 09/09/21 [History Last Taken Unknown] insulin degludec [Tresiba FlexTouch U-200] 26 unit SUBCUT DAILY 09/09/21 [History Last Taken Unknown] pantoprazole 40 mg PO DAILY 09/09/21 [History Last Taken Unknown] rosuvastatin 40 mg PO DAILY 09/09/21 [History Last Taken Unknown] Allergy/AdvReac Type Severity Reaction Status Date / Time chlorhexidine Allergy Rash Verified 09/09/21 11:14 Penicillins Allergy Unknown Verified 09/09/21 11:14 Sulfa (Sulfonamide Allergy Unknown Verified 09/09/21 11:14 Antibiotics) Family History (Updated 05/27/21 @ 15:38 by Annamaria Ron) Other COPD (chronic obstructive pulmonary disease) Surgical History History of coronary artery stent placement Social History Smoking Status: Former smoker alcohol intake: current alcohol intake frequency: 0-2 drinks per day Alcohol type: hard liquor ROS ROS ED Constitutional Constitutional ED: Denies chills or fever(s) Eyes Eyes: Denies blurry vision or change in vision ENT ENT ED: Denies rhinorrhea or sore throat Cardiovascular Cardiovascular: Denies chest pain or palpitations Respiratory/Chest Respiratory/Chest: Denies cough or dyspnea Gastrointestinal Gastrointestinal: Reports nausea; Denies vomiting Genitourinary Genitourinary ED: Denies dysuria or hematuria Musculoskeletal Musculoskeletal: Reports back pain; Denies neck pain Integumentary Denies abscess or rash Neurologic Neurologic: Denies headache(s) or weakness Allergic/Immunologic Allergic/Immunologic ED: Denies mouth swelling or urticaria EXAM Physical Exam Const Vital Signs: 09/09/21 11:12 09/09/21 12:45 Temperature 97.8 F Temperature Source Temporal Pulse Rate 95 89 Respiratory Rate 18 17 Blood Pressure 167/86 H Blood Pressure Mean 113 Pulse Ox 95 98 Oxygen Delivery Method Room Air Positive well nourished and well developed General Appearance ED: well developed HEENT atraumatic Neck full ROM Resp normal respiratory effort and clear to auscultation bilaterally Cardio regular rhythm Rate: regular rate Back/Spine Back/Spine Narrative: There is mild tenderness and erythema over the left lower thoracic area. There is no evidence of any tick remnants. There is no discharge or drainage. There is no evidence of any abscess. Extremity full ROM Neuro oriented x3, CN's II-XII intact bilaterally, moves all extremities, no focal motor deficits and no sensory deficits noted Sensorium / Orientation: alert Psych mental status grossly normal MDM MDM MDM Narrative Medical decision making narrative: Patient was given a prescription for doxycycline. Patient was instructed to keep the area clean. Patient was instructed to use Neosporin ointment to the area. Patient was instructed to follow-up with his primary care physician in 5 to 7 days. Patient understood and was agreeable with the plan. All questions were answered. Discharge Plan Triage Chief Complaint: Bite ED Provider: Jeremias Morse Dx/Rx/DC Orders Clinical Impression: Tick bite of back wall of thorax Instructions: ED Tick Bite, Abx Tx Prescriptions: New doxycycline monohydrate 100 MG capsule 100 mg PO BID Qty: 20 RF: 0 No Action furosemide 40 MG tablet 40 mg PO DAILY RF: 0 metformin 500 MG tablet 2 tab PO DAILY RF: 0 atenolol 25 MG tablet 25 mg PO DAILY RF: 0 amlodipine 5 MG tablet 5 mg PO DAILY RF: 0 sildenafil [Viagra] 100 MG tablet 100 mg PO PRN PRN (Reason: SEXUAL USE) RF: 0 glimepiride 2 MG tablet 4 mg PO BID RF: 0 nitroglycerin 0.4 MG tablet 0.4 mg sublingual Q5M PRN (Reason: Chest Pain) RF: 0 lisinopril 40 MG tablet 40 mg PO DAILY RF: 0 aspirin 81 MG tablet,chewable 81 mg PO DAILY RF: 0 ergocalciferol (vitamin D2) 50,000 U capsule 1 tab PO .2WEEK RF: 0 fenofibrate 160 MG tablet 1 tab PO DAILY RF: 0 pantoprazole 40 mg tablet,delayed release (DR/EC) 40 mg PO DAILY RF: 0 rosuvastatin 40 mg tablet 40 mg PO DAILY RF: 0 Tresiba FlexTouch U-200 200 unit/mL (3 mL) insulin pen 26 unit SUBCUT DAILY RF: 0 Trulicity 0.75 mg/0.5 mL Pen Injector 0.75 mg SUBCUT FLETCHER RF: 0 Primary Care Provider: Maria Eugenia Garcia Referrals: Maria Eugenia Garcia, [Primary Care Provider] - 5-7 Days Disposition Disposition: Home, Self Care Discharge Date/Time: 09/09/21 12:46
[2021-09-09 12:45] VITALS: PULSE 89; RESP 17; O2SAT 98
== END 2021-09-09 12:46 | disposition home or self-care (01) ==
PROVIDERS: Emergency Provider Emergency Medicine
DX: S20.462A Insect bite (nonvenomous) of left back wall of thorax, initial encounter (principal); E11.9 Type 2 diabetes mellitus without complications; K21.9 Gastro-esophageal reflux disease without esophagitis; I10 Essential (primary) hypertension; Z79.899 Other long term (current) drug therapy; Z79.4 Long term (current) use of insulin; Z87.891 Personal history of nicotine dependence; W57.XXXA Bitten or stung by nonvenomous insect and other nonvenomous arthropods, initial encounter; Y93.89 Activity, other specified; Y92.89 Other specified places as the place of occurrence of the external cause; Y99.8 Other external cause status
CPT/HCPCS: 99282

== ENCOUNTER 2021-10-24 09:17 | Outpatient (CLI) | payer MEDICARE, SELFPAY ==
[2021-10-24 10:19] LABS: PSA,Total- Diagnostic 7.95 ng/mL (0.0-4.0)
== END 2021-10-24 23:59 | disposition short-term general hospital (02) ==
LOC: LAB 09:20
PROVIDERS: Visit Provider Urology
DX: C61 Malignant neoplasm of prostate (principal)
CPT/HCPCS: 36415; 84153

== ENCOUNTER 2021-11-02 09:22 | Outpatient (CLI) | payer MEDICARE, SELFPAY ==
--- NOTE | 2021-11-02 09:30 | PET_ITS ---
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 COMPARISON EXAMINATION: None available INDEX LESION SIZE SUV INTERPRETATION Heterogeneous lower pelvis, prostate gland 11.2-mm (frame 64) 4.6 Fulfills quantitative criteria for viable neoplasm NON-INDEX LESION SIZE SUV INTERPRETATION Mediastinum, bilateral thoracic perihilum 2.3 (max) Quantitative criteria for viable neoplasm are not fulfilled Left adrenal gland 2.2 Quantitative criteria for viable neoplasm are not fulfilled TECHNIQUE: Following the intravenous administration of F-18 deoxyglucose, multiplanar image acquisitions of the neck, chest, abdomen and pelvis to level of mid thigh, obtained at one hour post radiopharmaceutical administration contemporaneously interpreted with the current CT of the neck, chest, abdomen and pelvis, to level of mid thigh, dated 11/02/21 via coregistration reveals: FINDINGS: 1. There is an increase in radiopharmaceutical concentration observed in the lower pelvis associated with the right base prostate gland, peripheral zone in proximity to apparent seed placement. The calculated maximal standard uptake value is 4.6. The maximal axial diameter of the metabolic abnormality on review of CT of the pelvis dated 11/02/21 is 11.2-mm (transverse). 2. Mild increased fluorine labeled glucose metabolism is manifest in the carinal, subcarinal mediastinum and bilateral thoracic perihilar regions generating a calculated maximal standard uptake value of 2.3. 3. Normal physiologic distribution of the radiopharmaceutical is apparent in the hepatic (2.5) and splenic parenchyma, both renal units, bladder and visualized intestinal tract. The visualized portion of the cerebral cortical-subcortical structures demonstrate symmetric and preserved glucose metabolism. Diffuse radiopharmaceutical concentration is noted in all four quadrants of the abdomen and pelvis. Mildly increased tracer uptake is observed in the left adrenal gland generating a calculated maximal standard uptake value of 2.2. Quantitative criteria for viable neoplasm are not fulfilled. Pertinent CT findings are as follows: CHEST: There is atherosclerotic calcification defined in the thoracic aorta without evidence of dilatation-aneurysm formation. Coronary arterial calcification is defined. A hiatal hernia is encountered. Bilateral axillary soft tissue densities with fatty hilus are ametabolic. There are no parenchymal densities-nodules defined in the right and left hemithorax with discernible increased tracer uptake. Bronchiectatic change is noted in the right lower posteromedial lung without evidence of quantitatively significant increased FDG uptake. Interstitial changes manifest in the bilateral post-basilar and left posterolateral lung nielson are non-glucose avid. ABDOMEN AND PELVIS: There is borderline fatty metamorphosis-steatosis defined in the hepatic parenchyma. There is atherosclerotic calcification defined in the abdominal aorta without evidence of dilatation-aneurysm formation. Pelvic arterial calcification is defined. Right and left fat containing inguinal hernias are noted. Colonic diverticulosis is encountered without evidence of diverticulitis. Cortical cyst formation is manifest in the left kidney. The calcified density manifest in the right posterior perirenal space reveals no evidence of increased tracer concentration. SKELETAL: Degenerative changes are noted in the cervical, thoracic and lumbar spine without evidence of increased radiopharmaceutical concentration. PET/PET/CT Tumor Base -Thigh Subs IMPRESSION: 1. The increase in fluorine labeled glucose metabolism manifest in the lower pelvis associated with the prostate gland fulfills quantitative criteria for viable neoplasm with single point technique. 2. Enhanced tracer concentration observed in the mediastinum, bilateral thoracic perihilum does not fulfill quantitative criteria for viable metastatic involvement. 3. Increased 18-F labeled glucose uptake observed in the left adrenal gland does not fulfill quantitative criteria for viable adrenal gland metastasis. (Thuy and Annalisaer, Journal of Nuclear Medicine 42:151 P2002 Sukhdev, Journal of Nuclear Medicine 45:1340, 2004). Electronic Signature Dave Gupta D.O. Accurate Quantification of SUVs for this report are calculated using the exclusive [employer] Technology. (U.S. Patent No. 10, 674, 983). Standardization and correction of the FDG SUV metric via ACCUQUAN technology allow for vendor non-specific objective quantitative examination comparison and optimization of the sensitivity and specificity of the FDG PET-CT examination. Electronically Signed: Dave Gupta DO at 21:19 EST ,
== END 2021-11-02 23:59 | disposition short-term general hospital (02) ==
PROVIDERS: Referring Provider Urology; Visit Provider Urology
DX: C61 Malignant neoplasm of prostate (principal)
CPT/HCPCS: 78815; A9552

== ENCOUNTER → 2022-01-27 | Outpatient (CLI) | payer MEDICARE, SELFPAY | END | disposition home or self-care (01) | LOC: LAB 14:26 | PROVIDERS: Visit Provider Urology | DX: C61 Malignant neoplasm of prostate (principal) | CPT/HCPCS: 36415; 84153 ==

== ENCOUNTER → 2022-05-04 | Outpatient (CLI) | payer MEDICARE, SELFPAY ==
[2022-05-04 17:32] LABS: PSA,Total- Diagnostic 1.12 ng/mL (0.0-4.0)
== END | disposition home or self-care (01) ==
LOC: LAB 15:33
PROVIDERS: Referring Provider Urology; Visit Provider Urology
DX: C61 Malignant neoplasm of prostate (principal)
CPT/HCPCS: 36415; 84153

== ENCOUNTER → 2022-08-10 | Outpatient (CLI) | payer MEDICARE, SELFPAY ==
[2022-08-10 12:19] LABS: PSA,Total- Diagnostic 0.66 ng/mL (0.0-4.0)
== END | disposition home or self-care (01) ==
LOC: LAB 11:14
PROVIDERS: Visit Provider Urology
DX: C61 Malignant neoplasm of prostate (principal)
CPT/HCPCS: 36415; 84153

== ENCOUNTER 2022-10-10 18:44 | Emergency (ER) | payer MEDICARE, SELFPAY ==
[2022-10-10 18:45] VITALS: BP 119/73; PULSE 84; RESP 18; TEMP 36; O2SAT 98; BMI 24.0
--- NOTE | 2022-10-10 19:43 | RAD_ITS ---
STUDY: X-RAY - PELVIS AND LEFT HIP REASON FOR EXAM: Male, 81 years old. Injury. Pain. Fell in the carotid sheath. TECHNIQUE: 3 views of the pelvis and hip. COMPARISON: None. FINDINGS: There is a non-specific bowel gas pattern. Normal visualized soft tissue structures. There are surgical clips versus brachytherapy seeds in the region of the prostate. Surgical clips are also seen in the presacral region. Normal bilateral iliac wings, sacroiliac joints and visualized sacrum. Normal bilateral superior and inferior pubic rami. Normal pubic symphysis. Normal bilateral ischial tuberosities. Normal visualized left femoral head. Normal left acetabulum. Normal left hip joint. RAD/HIP, UNI W/ Pelvis 2-3 Views IMPRESSION: 1. No fracture or dislocation. Electronically Signed: Ankush Mir DO at 20:04 EST ,
--- NOTE | 2022-10-10 19:51 | ED.VIS.FALL ---
HPI HPI - Fall History of Present Illness Chief Complaint: Fall Informant: patient Occured/Mechanism Occurred: Today Mechanism/Context: Yes trip Pain/Injury Pain Location: head and pelvis Quality of Pain: Dull Worsened by: Movement Relieved by: Nothing Associated Symptoms Associated Symptoms: Negative for Parasthesias, Weakness, Loss of function, Inability to ambulate, Loss of consciousness or Amnesia Narrative Narrative: Patient presents with left hip pain and scalp laceration that began after a fall. Patient states he missed a step going up the steps today and fell and hit his head. Patient states he hit the back of his head and noted some blood on the ground when he got up. Patient states he was able to ambulate after the fall. Patient describes the pain as dull. Patient states the pain is worse with certain movements. Patient states his last tetanus was less than 5 years ago. Patient denies any paresthesias or weakness. Patient denies any other injuries. [facility] Medical History (Updated 10/10/22 @ 20:[address] Jeremias Morse, ) Cancer Diabetes GERD (gastroesophageal reflux disease) History of esophageal dilatation History of gastrointestinal hemorrhage History of prostate cancer Hypertension Kidney disease Home Medications amlodipine 5 mg tablet 5 mg PO DAILY 11/17/13 [History Last Taken 03/05/20 07:30] atenolol 25 mg tablet 25 mg PO DAILY 11/17/13 [History Last Taken 03/05/20 07:30] furosemide 40 mg tablet 40 mg PO DAILY 11/17/13 [History Last Taken Unknown] glimepiride 2 mg tablet 4 mg PO BID 11/17/13 [History Last Taken Unknown] lisinopril 40 mg tablet 40 mg PO DAILY 11/17/13 [History Last Taken 03/05/20 07:30] metformin 500 mg tablet 2 tab PO DAILY 11/17/13 [History Last Taken Unknown] nitroglycerin 0.4 mg sublingual tablet 0.4 mg sublingual Q5M PRN Chest Pain 11/17/13 [History Last Taken Unknown] sildenafil 100 mg tablet (Viagra) 100 mg PO PRN PRN SEXUAL USE 11/17/13 [History Last Taken Unknown] aspirin 81 mg chewable tablet 81 mg PO DAILY 05/02/19 [History Last Taken Unknown] ergocalciferol (vitamin D2) 1,250 mcg (50,000 unit) capsule 1 tab PO .2WEEK 05/02/19 [History Last Taken Unknown] fenofibrate 160 mg tablet 1 tab PO DAILY 05/02/19 [History Last Taken Unknown] doxycycline monohydrate 100 mg capsule 100 mg PO BID #20 CAPSULES 09/09/21 [Rx Last Taken Unknown] dulaglutide 0.75 mg/0.5 mL subcutaneous pen injector (Trulicity) 0.75 mg subcut FLETCHER 09/09/21 [History Last Taken Unknown] insulin degludec 200 unit/mL (3 mL) subcutaneous pen (Tresiba FlexTouch U-200 insulin) 26 unit subcut DAILY 09/09/21 [History Last Taken Unknown] pantoprazole 40 mg tablet,delayed release 40 mg PO DAILY 09/09/21 [History Last Taken Unknown] rosuvastatin 40 mg tablet 40 mg PO DAILY 09/09/21 [History Last Taken Unknown] Allergy/AdvReac Type Severity Reaction Status Date / Time chlorhexidine Allergy Rash Verified 10/10/22 18:45 Penicillins Allergy Unknown Verified 10/10/22 18:45 Sulfa (Sulfonamide Allergy Unknown Verified 10/10/22 18:45 Antibiotics) Family History (Updated 05/27/21 @ 15:38 by Annamaria Ron) Other COPD (chronic obstructive pulmonary disease) Surgical History (Updated 10/10/22 @ 19:[address] Jeremias Morse DO) History of AAA (abdominal aortic aneurysm) repair History of coronary artery stent placement History of herniorrhaphy Social History Smoking Status: Former smoker alcohol intake: current alcohol intake frequency: 0-2 drinks per day Alcohol type: hard liquor ROS ROS ED Constitutional Constitutional ED: Denies chills or fever(s) Eyes Eyes: Denies blurry vision or change in vision ENT ENT ED: Denies rhinorrhea or sore throat Cardiovascular Cardiovascular: Denies chest pain or palpitations Respiratory/Chest Respiratory/Chest: Denies cough or dyspnea Gastrointestinal Gastrointestinal: Denies nausea or vomiting Genitourinary Genitourinary ED: Denies dysuria or hematuria Musculoskeletal Musculoskeletal: Denies back pain or neck pain Integumentary Denies abscess or rash Neurologic Neurologic: Reports headache(s); Denies weakness Allergic/Immunologic Allergic/Immunologic ED: Denies mouth swelling or urticaria EXAM Physical Exam Const Vital Signs: 10/10/22 18:45 10/10/22 19:06 Temperature 96.8 F L Temperature Source Temporal Pulse Rate 84 Respiratory Rate 18 Respiratory Effort Normal Non-Labored Respiratory Depth Normal Respiratory Pattern Normal Blood Pressure 119/73 Blood Pressure Mean 88 Pulse Ox 98 Oxygen Delivery Method Room Air Room Air Positive well nourished and well developed General Appearance ED: well developed and NAD HEENT HEENT Narrative: There is a 3 cm full-thickness linear laceration over the occipital scalp. There is mild gapping of the wound margins. There is mild bleeding. There is no bony crepitance or step-off. There are no foreign bodies noted. Neck full ROM and supple Resp normal respiratory effort and clear to auscultation bilaterally Cardio regular rate and regular rhythm Extremity Extremity Narrative: There is mild tenderness over the left ischial tuberosity. There is no bony crepitance or step-off. There is good range of motion of the left hip. There is no obvious deformity noted. Neuro oriented x3, CN's II-XII intact bilaterally, moves all extremities, no focal motor deficits and no sensory deficits noted Sensorium / Orientation: alert Motor Exam: strength 5/5 throughout Psych mental status grossly normal and thought process normal MDM MDM MDM Narrative Medical decision making narrative: X-rays of the left hip were obtained. There are 3 views. On my interpretation, there is no acute fracture or dislocation. There are some degenerative changes noted. Radiologist also interpreted the x-rays and agrees. The wound was cleaned and irrigated with copious amounts of normal saline. The wound was anesthetized with 1% lidocaine with epinephrine locally. The wound was closed with 5 braxton under sterile technique. Patient tolerated the procedure well. Bacitracin dressing was applied. Patient was given head injury instructions. Patient was instructed to follow-up with his primary care physician in 5 to 7 days for wound recheck and staple removal. Patient was instructed to use ice to his left hip. Patient was instructed to take Tylenol as needed for pain. Patient understood and was agreeable with the plan. All questions were answered. Radiography Diagnostic Testing: Clinical Impression(s) from Imaging Studies Hip/Pelvis X-Ray 10/10/22 19:43 IMPRESSION: 1. No fracture or dislocation. Electronically Signed: Ankush Mir DO at 20:04 [facility] Reading Location ID and State: [facility] Tel [phone], Service support , Procedures Lacerations Scalp: Length: 3 cm Depth: Skin Shape: Linear Prep: Sterile Conditions and Chlorhexadine Laceration repair: Irrigated, Lidocaine with epi, Local and Wound explored Irrigated (ml): 100 Number of Sutures/Braxton: 5 Suture Information: - ([place]) Discharge Plan Triage Chief Complaint: Fall Other Complaint: Head Injury Lower Extremity Injury ED Provider: Jeermias Morse Dx/Rx/DC Orders Clinical Impression: Laceration of scalp, Fall, Head injury, Contusion of left hip region Instructions: ED Head Injury (Adult), ED Laceration Scalp Stitches or Braxton Prescriptions: No Action furosemide 40 MG tablet 40 mg PO DAILY metformin 500 MG tablet 2 tab PO DAILY atenolol 25 MG tablet 25 mg PO DAILY amlodipine 5 MG tablet 5 mg PO DAILY sildenafil [Viagra] 100 MG tablet 100 mg PO PRN PRN (Reason: SEXUAL USE) glimepiride 2 MG tablet 4 mg PO BID nitroglycerin 0.4 MG tablet 0.4 mg sublingual Q5M PRN (Reason: Chest Pain) lisinopril 40 MG tablet 40 mg PO DAILY aspirin 81 MG tablet,chewable 81 mg PO DAILY ergocalciferol (vitamin D2) 50,000 U capsule 1 tab PO .2WEEK fenofibrate 160 MG tablet 1 tab PO DAILY pantoprazole 40 mg tablet,delayed release (DR/EC) 40 mg PO DAILY rosuvastatin 40 mg tablet 40 mg PO DAILY Tresiba FlexTouch U-200 200 unit/mL (3 mL) insulin pen 26 unit SUBCUT DAILY Label Comments: inject 30 units subcutaneously once daily Trulicity 0.75 mg/0.5 mL Pen Injector 0.75 mg SUBCUT FLETCHER doxycycline monohydrate 100 MG capsule 100 mg PO BID Qty: 20 0RF Primary Care Provider: Maria Eugenia Garcia Referrals: Maria Eugenia Garcia DO [Primary Care Provider] - 5-7 Days Disposition Disposition: Home, Self Care Discharge Date/Time: 10/10/22 21:08
[2022-10-10] MEDS: Lidocaine 2% /Epi 1:100 (20ml) 20 ML VIAL INFILT (20:09)
== END 2022-10-10 21:08 | disposition home or self-care (01) ==
PROVIDERS: Emergency Provider Emergency Medicine; Visit Provider Emergency Medicine
DX: S01.01XA Laceration without foreign body of scalp, initial encounter (principal); E11.9 Type 2 diabetes mellitus without complications; I10 Essential (primary) hypertension; S70.02XA Contusion of left hip, initial encounter; Z87.891 Personal history of nicotine dependence; W19.XXXA Unspecified fall, initial encounter
CPT/HCPCS: 12002; 73502; 99283

== ENCOUNTER → 2022-11-20 | Outpatient (CLI) | payer MEDICARE, SELFPAY ==
[2022-11-20 10:48] LABS: PSA,Total- Diagnostic 0.55 ng/mL (0.0-4.0)
== END | disposition home or self-care (01) ==
LOC: LABSPEC 08:55
PROVIDERS: Visit Provider Urology
DX: C61 Malignant neoplasm of prostate (principal)
CPT/HCPCS: 36415; 84153

== ENCOUNTER → 2023-02-16 | Outpatient (CLI) | payer MEDICARE, SELFPAY ==
[2023-02-16 10:09] LABS: PSA,Total- Diagnostic 1.78 ng/mL (0.0-4.0)
== END | disposition home or self-care (01) ==
LOC: LAB 09:30
PROVIDERS: Referring Provider Registered Nurse; Visit Provider Registered Nurse
DX: C61 Malignant neoplasm of prostate (principal)
CPT/HCPCS: 36415; 84153

== ENCOUNTER 2023-03-28 10:27 | Day surgery (SDC) | payer MEDICARE, SELFPAY ==
[2023-03-22 09:40] LABS: Hematocrit 33.1 % (40-54); Hemoglobin 10.5 g/dL (13.0-16.5); Mean Corp Hgb Conc 31.7 g/dL (32-36); Mean Corpuscular Hgb 27.4 pg (27.0-32.0); Mean Corpuscular Volume 86.4 fL (80-94); Mean Platelet Vol. 9.4 fl (6.2-12.0); Platelet Count 195 K/mm3 (150-450); RBC Distribution Width CV 13.9 % (11.6-14.6); RBC Distribution Width SD 43.8 fl (35.1-43.9); Red Blood Count 3.83 M/mm3 (4.6-6.2)
[2023-03-22 09:59] LABS: Anion Gap 9 (5-15); BUN 17 mg/dL (7-18); BUN/Creat Ratio 14.3 RATIO (10-20); Chloride 107 mmol/L (98-107); Creatinine, Serum 1.19 mg/dL (0.70-1.30); EST Glomerular Filtration Rate 63 mL/min (>60); Est Glom Filt Rate - Afr Amer 76 mL/min (>60); Glucose 140 mg/dL (74-106); Potassium 3.1 mmol/L (3.5-5.1); Sodium Level 141 mmol/L (136-145)
[2023-03-22 10:26] LABS: Hemoglobin A1c 8.4 % (3.8-5.6)
[2023-03-28 10:51] VITALS: BP 130/78; PULSE 113; RESP 18; TEMP 36.8; O2SAT 98; BMI 23.8
[2023-03-28] MEDS: Lactated Ringers 1,000 ML 15 ML IV (10:56)
[2023-03-28 11:17] LABS: Bedside Glucose 191 mg/dL (74-106)
[2023-03-28] MEDS: Cefazolin 2 GM in 0.9% Normal Saline 100 ML IV (12:23)
--- NOTE | 2023-03-28 12:25 | HP.PCM_ITS ---
HPI - General HPI Narrative JEANNA ALONZO, is a 82 M who presents for resection of a bladder tumor instillation of Mitomycin-C and incision of bladder neck contracture [facility] Medical History (Updated 03/28/23 @ 12:[address] Ameya Rebolledo MD) Alcohol use Anemia Arthritis Back pain Bladder disease Cancer Cardiology follow-up encounter Diabetes Dietary restriction Former smoker GERD (gastroesophageal reflux disease) High cholesterol History of echocardiogram History of edema History of esophageal dilatation History of gastrointestinal hemorrhage History of GI bleed History of prostate cancer History of renal disease History of stress test Hypertension Injury of head and neck Insulin dependent diabetes mellitus Kidney disease Leg cramps Wears dentures Wears glasses Home Medications amlodipine 5 mg tablet 5 mg PO DAILY 11/17/13 [History Last Taken 03/28/23] atenolol 25 mg tablet 25 mg PO DAILY 11/17/13 [History Last Taken 03/28/23] furosemide 40 mg tablet 20 mg PO DAILY 11/17/13 [History Last Taken Unknown] glimepiride 2 mg tablet 4 mg PO BID 11/17/13 [History Last Taken Unknown] lisinopril 40 mg tablet 40 mg PO DAILY 11/17/13 [History Last Taken 03/05/20 07:30] nitroglycerin 0.4 mg sublingual tablet 0.4 mg sublingual Q5M PRN Chest Pain 11/17/13 [History Last Taken Unknown] sildenafil 100 mg tablet (Viagra) 100 mg PO PRN PRN SEXUAL USE 11/17/13 [History Last Taken Unknown] ergocalciferol (vitamin D2) 1,250 mcg (50,000 unit) capsule 1 tab PO FLETCHER 05/02/19 [History Last Taken Unknown] fenofibrate 160 mg tablet 1 tab PO DAILY 05/02/19 [History Last Taken Unknown] dulaglutide 0.75 mg/0.5 mL subcutaneous pen injector (Trulicity) 0.75 mg subcut FLETCHER 09/09/21 [History Last Taken Unknown] pantoprazole 40 mg tablet,delayed release 40 mg PO DAILY 09/09/21 [History Last Taken 03/28/23] rosuvastatin 40 mg tablet 40 mg PO DAILY 09/09/21 [History Last Taken Unknown] dapagliflozin propanediol 10 mg tablet (Farxiga) 10 mg PO DAILY 03/19/23 [History Last Taken Unknown] insulin glargine U-300 conc 300 unit/mL (3 mL) subcutaneous pen (Toujeo Max U- 300 SoloStar) 44 unit subcut DAILY 03/19/23 [History Last Taken Unknown] ciprofloxacin HCl 500 mg tablet (Cipro) 500 mg PO BID #14 tabs 03/28/23 [Rx Last Taken Unknown] oxybutynin chloride 10 mg tablet,extended release 24 hr 10 mg PO DAILY #90 tabs 03/28/23 [Rx Last Taken Unknown] oxycodone 5 mg capsule 5 mg PO Q6H PRN pain 7 days #10 caps 03/28/23 [Rx Last Taken Unknown] Allergy/AdvReac Type Severity Reaction Status Date / Time chlorhexidine Allergy Rash Verified 03/28/23 10:49 Penicillins Allergy Unknown Verified 03/28/23 10:49 Sulfa (Sulfonamide Allergy Unknown Verified 03/28/23 10:49 Antibiotics) Family History (Updated 05/27/21 @ 15:38 by Annamaria Ron) Other COPD (chronic obstructive pulmonary disease) Surgical History (Updated 03/19/23 @ 10:14 by Sidra Castano) History of AAA (abdominal aortic aneurysm) repair History of cardiac catheterization History of coronary artery stent placement History of herniorrhaphy History of transurethral resection of bladder tumor (TURBT) Social History Smoking Status: Former smoker alcohol intake: current alcohol intake frequency: 0-2 drinks per day Alcohol type: hard liquor Vital Signs Vital Signs Vital Signs: 03/28/23 10:51 03/28/23 10:51 Temperature 98.2 F Temperature Source Temporal Pulse Rate 113 H Respiratory Rate 18 Respiratory Pattern Normal Blood Pressure 130/78 H Blood Pressure Mean 95 Blood Pressure Source Monitor Blood Pressure Position Sitting Blood Pressure Location Right Arm Pulse Ox 98 Oxygen Delivery Method Room Air Weight Weight: 71 kg Body Mass Index (BMI) 23.8 Results Lab / Micro Data 03/22/23 08:44 03/22/23 08:44 Labs: Laboratory Results - last 24 hr 03/28/23 10:50: POC Glucose 191 H
--- NOTE | 2023-03-28 12:25 | DCINST_ITS ---
Discharge Instructions Diet Discharge Diet: No restrictions and Light diet - advance as tolerated Activity Discharge Activity: Return to Normal Activity Follow Up Care Please Follow Up With: Ameya Rebolledo MD When: call for appt Test Results: Test results from this visit will be discussed in further detail at your follow- up appointment, if applicable. Discharge Plan Admission Primary Reason for Your Visit: Transurethral resection of bladder tumor Attending Provider: Ameya Rebolledo Primary Care Provider: Maria Eugenia Garcia Consulting Providers: Pascual Schmitt Discharge Orders/Prescriptions Prescriptions: New oxybutynin chloride 10 mg tablet extended release 24hr 10 mg PO DAILY Qty: 90 3RF ciprofloxacin HCl [Cipro] 500 mg tablet 500 mg PO BID Qty: 14 0RF oxycodone 5 mg capsule 5 mg PO Q6H PRN (Reason: pain) 7 Days Qty: 10 0RF Continued furosemide 40 MG tablet 20 mg PO DAILY atenolol 25 MG tablet 25 mg PO DAILY amlodipine 5 MG tablet 5 mg PO DAILY sildenafil [Viagra] 100 MG tablet 100 mg PO PRN PRN (Reason: SEXUAL USE) glimepiride 2 MG tablet 4 mg PO BID nitroglycerin 0.4 MG tablet 0.4 mg sublingual Q5M PRN (Reason: Chest Pain) lisinopril 40 MG tablet 40 mg PO DAILY ergocalciferol (vitamin D2) 50,000 U capsule 1 tab PO FLETCHER fenofibrate 160 MG tablet 1 tab PO DAILY pantoprazole 40 mg tablet,delayed release (DR/EC) 40 mg PO DAILY rosuvastatin 40 mg tablet 40 mg PO DAILY Trulicity 0.75 mg/0.5 mL Pen Injector 0.75 mg SUBCUT FLETCHER Farxiga 10 mg Tablet 10 mg PO DAILY Toujeo Max U-300 SoloStar 300 unit/mL (3 mL) Insulin Pen 44 unit SUBCUT DAILY Referrals / Follow Up: Ameya Rebolledo MD [Med Staff - Active Staff] - Maria Eugenia Garcia DO [Primary Care Provider] - Disposition Disposition (needs filled in before D/C Order can be placed): Home, Self Care
--- NOTE | 2023-03-28 12:30 | BLB_PTH ---
PATIENT: JEANNA ALONZO LOC: [facility] [place][id number] AGE/SX: 82/M ROOM: RE03/28/[address]: Dr. Ameya Rebolledo MD : [id number] BED: DIS: 03/28/2023 SPEC #: [id number] RECD: 03/29/23 08:50 STATUS: LOIS VELASCO #: [id number] JUDY: 03/28/23 12:[address]: Ameya Rebolledo DEPT: SURGICAL PATHOLOGY RECD BY: Effie Schwartz ENTERED: 03/29/23 09:47 SP TYPE: TURB OTHR DR: MD Dr. 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 See cancer summary in the comment section. SJ:rg 03/30/2023 COMMENT BLADDER CANCER (TUR) SUMMARY Procedure: Transurethral resection of bladder tumor (TURBT) Tumor site: Not specified Histologic type: Papillary urothelial carcinoma, noninvasive Associated epithelial lesions: None identified Histologic grade: Low grade (1-2/3) Tumor configuration: Papillary Muscularis propria presence: No muscularis propria (detrusor muscle) is identified. Lymphvascular invasion: Not identified Tumor extension: Noninvasive papillary carcinoma. Additional pathologic findings: Chronic inflammation. The above summary is in compliance with [employer] (CAP) Cancer Protocols Checklist and [place] Joint Committee on Cancer (AJCC), Staging Manual, 8th Ed. Please make reference to previous specimen ([id number]) urinary bladder tumor, TUR with diagnosis of papillary urothelial carcinoma. Case has been reviewed in consultation with Dr. Dietz who concurs with the above diagnosis. IDC:AM MICROSCOPIC DESCRIPTION Slides are reviewed. GROSS DESCRIPTION Received in fixative is one container labeled with the patient's name and designated bladder tumor. The specimen consists of one irregular fragment of light mast soft tissue that measures 0.2 x 0.2 x 0.1 cm. The specimen is totally submitted in one cassette. / SOPHIE:bowen 03/29/2023 TC:0 CPT: 48331
[2023-03-28] MEDS: Sugammadex Sodium 200 MG/2 ML VIAL IV (12:47)
--- NOTE | 2023-03-28 12:49 | OP.PCM_ITS ---
Report of Operation Date of Procedure: 03/28/23 Pre-Operative Diagnosis: Bladder cancer multiple sites, bladder neck contracture Post-Operative Diagnosis: The same Surgery/Procedure Performed:: Transurethral incision of the bladder neck contracture and transurethral resection of bladder tumors medium size Description of Surgical Findings:: Patient was taken back to the operating room at the smooth induction of general anesthesia he was paralyzed for transurethral section of a bladder tumor once this was accomplished the penis and testicles were prepped and draped in usual sterile fashion went in the bladder with a 21 [place] rigid cystourethroscope the entire length the urethra is normal the sphincter was intact I went into the prostate he did have a bladder neck contracture I then used the Bugbee electrode to cauterize his open and incised the bladder neck contracture once a bladder neck contracture was incised then I went inside the bladder identify that there was a tumor first tumor was 1 cm x 1 cm in size in the posterior bladder area second tumor was a 1 cm x 2 cm in size in the posterior bladder area and then there is a third tumor that was 1 cm x 1.5 cm in size right next to the trigone next to the ureteral orifice. Once the tumors were identified the size were marked and noted then I went in and resected these tumors and then cauterized the base of these tumors completely once the resection was completed then I cauterized extensively. There was no more bleeding no more visible tumors I then placed a Doherty catheter into the bladder and 40 cc of Mitomycin-C was put into the bladder. And after the medication was put into the bladder we then clamped the Doherty catheter and we will leave it clamped for an hour and the catheter will remove the removed in the PACU an hour after clamping for voiding trial. Surgeon: Ameya Rebolledo Type of Anesthesia: General Drains: 18 fr Estimated Blood Loss (mL): 0 Admit VTE Documentation VTE Present on Admission: No VTE Mechan Device Prophylaxis: SCD's VTE Pharm Prophylaxis ordered?: No
[2023-03-28 13:11] VITALS: BP 109/73; BP 130/78; PULSE 89; RESP 16; TEMP 36.6; O2SAT 99
[2023-03-28 13:30] VITALS: BP 118/69; BP 130/78; PULSE 89; RESP 16; O2SAT 94
[2023-03-28 13:45] VITALS: BP 125/68; BP 130/78; PULSE 91; RESP 16; O2SAT 96
[2023-03-28 14:00] VITALS: BP 113/83; BP 130/78; PULSE 87; RESP 16; TEMP 36.5; O2SAT 90
--- NOTE | 2023-03-28 14:05 | SUR.PHASEI ---
GELLER UNCLAMPED AT 1347, DRAINED. GELLER REMOVED AT 1405. 70ML
[2023-03-28] MEDS: oxyCODONE 5 MG Tablet PO (15:17)
[2023-03-28 15:39] VITALS: BP 126/74; BP 130/78; PULSE 90; RESP 17; TEMP 36.1; O2SAT 95
== END 2023-03-28 15:47 | disposition home or self-care (01) ==
LOC: SDC 10:28 → AC 10:31
PROVIDERS: Anesthesiology; Referring Provider Urology; Visit Provider Urology
PROC: 0T5B8ZZ Destruction of Bladder, Via Natural or Artificial Opening Endoscopic (ICD-10-PCS; CPT 51720; principal; 2023-03-28 12:20)
DX: C67.9 Malignant neoplasm of bladder, unspecified (principal); E11.9 Type 2 diabetes mellitus without complications; Z79.4 Long term (current) use of insulin; I10 Essential (primary) hypertension; E78.00 Pure hypercholesterolemia, unspecified; Z87.891 Personal history of nicotine dependence; Z79.899 Other long term (current) drug therapy; Z79.84 Long term (current) use of oral hypoglycemic drugs; Z95.5 Presence of coronary angioplasty implant and graft
CPT/HCPCS: 52235; 52500; 00912; 36415; 80048; 82962; 83036; 85027; 88307; J7120; J2405; J3490; J9280

== ENCOUNTER → 2023-07-12 | Outpatient (CLI) | payer MEDICARE, SELFPAY ==
[2023-07-12 16:44] LABS: PSA,Total- Diagnostic 2.51 ng/mL (0.0-4.0)
== END | disposition home or self-care (01) ==
LOC: LAB 16:04
PROVIDERS: Referring Provider Urology; Visit Provider Urology
DX: C61 Malignant neoplasm of prostate (principal)
CPT/HCPCS: 36415; 84153

== ENCOUNTER 2023-09-04 19:23 | Observation (INO) | payer MEDICARE, SELFPAY ==
[2023-09-04 19:27] VITALS: BP 121/66; PULSE 99; RESP 18; TEMP 36.9; O2SAT 92; BMI 25.1
--- NOTE | 2023-09-04 20:14 | CT_ITS ---
EXAM: CT HEAD WITHOUT INTRAVENOUS CONTRAST CLINICAL INDICATION: ams TECHNIQUE: Multiple axial images were obtained of the head without intravenous contrast. This CT exam was performed using one or more of the following dose reduction techniques: automated exposure control, adjustment of the mA and/or kV according to patient size, and/or use of iterative reconstruction technique. COMPARISON: 05/28/2014 FINDINGS: BRAIN AND EXTRA-AXIAL SPACES: There is hypodensity seen in the white matter of the right frontal lobe. There is a questionable hypodense mass in the right frontal lobe that measures 1.5 x 1.5 x 1.4 cm seen on series 2 image 31. There is enlargement of ventricular system and cortical sulci. No intra- or extra-axial hemorrhage. No evidence of acute infarct. There is preservation of the emmanuel/white matter interface. Posterior fossa structures are unremarkable. Basal cisterns are patent. BONES/JOINTS: Unremarkable. No discrete lytic or blastic abnormalities. SINUSES: Unremarkable as visualized. Clear. MASTOID AIR CELLS: Unremarkable. Clear. ORBITS: Visualized globes, extraocular muscles, optic nerves and retrobulbar fat appear unremarkable. CT/Brain/Head without Contrast IMPRESSION: 1. Extensive hypodensity in the right frontal lobe that may represent edema possibly from ischemia but there is a questionable hypodense mass present. There is no hemorrhage identified. Further evaluation with MRI is recommended. 2. Underlying senescent change with small vessel ischemia. Electronically Signed: Bipin Person MD at 20:52 EST ,
--- NOTE | 2023-09-04 20:17 | EX.ED.DYSGE1 ---
HPI History of Present Illness Chief Complaint: Confusion Narrative Narrative: 82-year-old male presenting for evaluation of altered mental status. Patient is a poor informant. Patient's states that after dinner he went out to the garage like he normally does. He was trying to get into his trailblazer. The lights were on and his asked what he was trying to do and he stated he was trying to get something out of the trunk. She was able to get into the car and get the car and locked and eventually went to find him and she not able to find him initially. He was in the workshop portion of the garage that they ran. She found unconscious in the garage and initially unresponsive for about 10 minutes. She states his right hand was shaking a little bit. She states that he does drink in the garage and he keeps all of his alcohol out there. She does not know if he was drinking tonight. He does not recall if he was drinking tonight. He denies headache, blurred vision, slurred speech. He has a superficial laceration over the right hand. Last tetanus 2019. Patient states that he feels back to his baseline. Denies any chest pain, palpitations, shortness of breath, fever, chills, nausea, vomiting. [facility] Medical History Alcohol use Anemia Arthritis Back pain Bladder disease Cancer Cardiology follow-up encounter Diabetes Dietary restriction Former smoker GERD (gastroesophageal reflux disease) High cholesterol History of echocardiogram History of edema History of esophageal dilatation History of gastrointestinal hemorrhage History of GI bleed History of prostate cancer History of renal disease History of stress test Hypertension Injury of head and neck Insulin dependent diabetes mellitus Kidney disease Leg cramps Wears dentures Wears glasses Home Medications amlodipine 5 mg tablet 5 mg PO DAILY 11/17/13 [History Last Taken 03/28/23] atenolol 25 mg tablet 25 mg PO DAILY 11/17/13 [History Last Taken 03/28/23] furosemide 40 mg tablet 20 mg PO DAILY 11/17/13 [History Last Taken Unknown] glimepiride 2 mg tablet 4 mg PO BID 11/17/13 [History Last Taken Unknown] lisinopril 40 mg tablet 40 mg PO DAILY 11/17/13 [History Last Taken 03/05/20 07:30] nitroglycerin 0.4 mg sublingual tablet 0.4 mg sublingual Q5M PRN Chest Pain 11/17/13 [History Last Taken Unknown] sildenafil 100 mg tablet (Viagra) 100 mg PO PRN PRN SEXUAL USE 11/17/13 [History Last Taken Unknown] ergocalciferol (vitamin D2) 1,250 mcg (50,000 unit) capsule 1 tab PO FLETCHER 05/02/19 [History Last Taken Unknown] fenofibrate 160 mg tablet 1 tab PO DAILY 05/02/19 [History Last Taken Unknown] dulaglutide 0.75 mg/0.5 mL subcutaneous pen injector (Trulicity) 0.75 mg subcut FLETCHER 09/09/21 [History Last Taken Unknown] pantoprazole 40 mg tablet,delayed release 40 mg PO DAILY 09/09/21 [History Last Taken 03/28/23] rosuvastatin 40 mg tablet 40 mg PO DAILY 09/09/21 [History Last Taken Unknown] dapagliflozin propanediol 10 mg tablet (Farxiga) 10 mg PO DAILY 03/19/23 [History Last Taken Unknown] insulin glargine U-300 conc 300 unit/mL (3 mL) subcutaneous pen (Toujeo Max U-300 SoloStar) 44 unit subcut DAILY 03/19/23 [History Last Taken Unknown] ciprofloxacin HCl 500 mg tablet (Cipro) 500 mg PO BID #14 tabs 03/28/23 [Rx Last Taken Unknown] oxybutynin chloride 10 mg tablet,extended release 24 hr 10 mg PO DAILY #90 tabs 03/28/23 [Rx Last Taken Unknown] oxycodone 5 mg capsule 5 mg PO Q6H PRN pain 7 days #10 caps 03/28/23 [Rx Last Taken Unknown] Allergy/AdvReac Type Severity Reaction Status Date / Time chlorhexidine Allergy Rash Verified 09/04/23 19:36 Penicillins Allergy Unknown Verified 09/04/23 19:36 Sulfa (Sulfonamide Allergy Unknown Verified 09/04/23 19:36 Antibiotics) Family History Other COPD (chronic obstructive pulmonary disease) Surgical History History of AAA (abdominal aortic aneurysm) repair History of cardiac catheterization History of coronary artery stent placement History of herniorrhaphy History of transurethral resection of bladder tumor (TURBT) Social History Smoking Status: Former smoker alcohol intake: current alcohol intake frequency: 0-2 drinks per day Alcohol type: hard liquor ROS ROS ED Constitutional Constitutional ED: Denies chills, fever(s) or sweats Eyes Eyes: Denies blurry vision or change in vision ENT ENT ED: Denies ear pain or sore throat Cardiovascular Cardiovascular: Denies chest pain, palpitations or racing heartbeat Respiratory/Chest Respiratory/Chest: Denies cough, dyspnea or sputum Gastrointestinal Gastrointestinal: Denies abdominal pain, constipation, diarrhea, nausea or vomiting Genitourinary Genitourinary ED: Denies dysuria, hematuria or urinary frequency Musculoskeletal Musculoskeletal: Denies arthralgias, myalgias or neck pain Integumentary Reports other Details: Superficial laceration dorsum of right hand ; Denies abscess, Abrasions or rash Neurologic Neurologic: Denies headache(s), paresthesias or weakness Psychiatric Psychiatric: Denies anxiety, depression, suicidal ideation or suicidal thoughts Endocrine Endocrinology: Denies polydipsia or polyuria EXAM Physical Exam Const Vital Signs: 09/04/23 19:27 09/04/23 21:00 Temperature 98.5 F 97.3 F L Temperature Source Temporal Temporal Pulse Rate 99 80 Respiratory Rate 18 14 Blood Pressure 121/66 H 121/61 H Blood Pressure Mean 84 81 Pulse Ox 92 94 Oxygen Delivery Method Room Air Room Air Positive well nourished General Appearance ED: NAD HEENT Reports moist mucous membranes Eyes PERRL and EOMs intact bilaterally General Eye ED: Negative for pale conjunctiva Neck no lymphadenopathy Chest Wall inspection of chest normal Resp normal respiratory effort and clear to auscultation bilaterally Auscultation: Negative for rales, rhonchi or wheezes Cardio regular rate and regular rhythm GI normal to inspection, nondistended, normoactive bowel sounds Inspection: abdominal distention Back/Spine no CVA tenderness Neuro oriented x3, CN's II-XII intact bilaterally and no sensory deficits noted Sensorium / Orientation: alert Motor Exam: strength 5/5 throughout Psych mental status grossly normal Skin Skin Narrative: Superficial laceration to the right dorsal hand. MDM MDM MDM Narrative Medical decision making narrative: Patient presenting with altered mental status which is resolved. Apparently the patient was last seen about 15 minutes before finding him down on the ground and he was unarousable for about 10 minutes. Patient woke up and is alert and awake now. He is unsure what happened to him. He does not know if he fainted or if he hit his head. Is no evidence of head trauma. Patient not anticoagulant any blood thinners. Differential includes intracranial injury, concussion, syncope, dehydration, electrolyte abnormalities, ACS, EtOH abuse, drug abuse. CBC was obtained to assess white blood cell count, hemoglobin, platelets. CMP to assess liver function, renal function, electrolytes, glucose. EKG and high-sensitivity troponin to assess for ischemia/dysrhythmia. BNP to assess for CHF. Urinalysis to assess for UTI. CBC shows normal blood cell count of 4.9. Hemoglobin 9.4 near baseline. Platelets are 150. Creatinine 1.45 and slightly elevated. Electrolytes unremarkable. Glucose 227 without anion gap. LFTs are unremarkable. High-sensitivity troponin is 18. EKG on my interpretation shows a normal sinus rhythm with a ventricular to 81 bpm without sign ischemic change or ectopy on my interpretation. Chest x-ray my interpretation shows no acute process. The radiologist interprets this and agrees. CT brain was obtained and shows concern for possible ischemic area in the right frontal lobe. This was followed by CTA which shows good vascular flow and an enhancing mass in the right frontal lobe. After extensive discussion with the patient and his they feel uncomfortable going home as I do not know why he was found on the ground. Is unclear if he had an episode of syncope. He states he is never had an echocardiogram. No cardiac history that he knows of. I will speak to the hospitalist for admission. Impression: 1. Syncope 2. Altered mental status 3. Superficial laceration right hand 4. Brain mass 5. Cannabinoid use Lab Data Labs: Laboratory Results - last 24 hr 09/04/23 09/04/23 09/04/23 19:35 20:45 21:28 WBC 4.9 RBC 3.46 L Hgb 9.4 L Hct 29.5 L MCV 85.3 MCH 27.2 MCHC 31.9 L RDW Std Deviation 47.7 H RDW Coeff of Jeanette 15.3 H Plt Count 150 MPV 9.1 Immature Gran % (Auto) 1.000 H Neut % (Auto) 73.1 H Lymph % (Auto) 7.7 L Culberson % (Auto) 14.0 H Eos % (Auto) 3.6 Baso % (Auto) 0.6 Absolute Neuts (auto) 3.6 Absolute Lymphs (auto) 0.38 L Nucleated RBC % 0 Differential Comment SCANNED Sodium 135 L Potassium 3.9 Chloride 103 Carbon Dioxide 21.0 Anion Gap 11 BUN 21 H Creatinine 1.45 H Estim Creat Clear Calc 39.31 Est GFR (MDRD) Af Amer 60 Est GFR (MDRD) Non-Af 50 L BUN/Creatinine Ratio 14.5 Glucose 227 H Calcium 9.1 Total Bilirubin 0.40 AST 45 H ALT 33 Alkaline Phosphatase 164 H Troponin I High Sens 18 B-Natriuretic Peptide 181.5 H Total Protein 7.4 Albumin 3.6 Globulin 3.8 Albumin/Globulin Ratio 0.9 Urine Color Yellow Urine Clarity Clear Urine pH 7.0 Ur Specific Carson 1.010 Urine Protein 30 H Urine Glucose (UA) 1000 H Urine Ketones Negative Urine Occult Blood 50 H Urine Nitrite Negative Urine Bilirubin Negative Urine Urobilinogen Normal Ur Leukocyte Esterase Negative Urine RBC 0 SEEN Urine WBC 0-5 SEEN Ur Squamous Epith Cells 0 SEEN Urine Bacteria 0 SEEN Urine Mucus 0 SEEN Urine Opiates Screen NEGATIVE Urine Methadone Screen NEGATIVE Ur Barbiturates Screen NEGATIVE Ur Phencyclidine Scrn NEGATIVE Ur Amphetamines Screen NEGATIVE MDMA (Ecstasy) Screen NEGATIVE U Benzodiazepines Scrn NEGATIVE Urine Cocaine Screen NEGATIVE U Cannabinoids Screen POSITIVE H Ur Drug Screen Comment Ethyl Alcohol < 3.0 Radiography Diagnostic Testing: Clinical Impression(s) from Imaging Studies Brain CT 09/04/23 20:14 IMPRESSION: 1. Extensive hypodensity in the right frontal lobe that may represent edema possibly from ischemia but there is a questionable hypodense mass present. There is no hemorrhage identified. Further evaluation with MRI is recommended. 2. Underlying senescent change with small vessel ischemia. Electronically Signed: Bipin Person MD at 20:52 EST , Chest X-Ray 09/04/23 20:29 IMPRESSION: No radiographic evidence of acute cardiopulmonary disease. Electronically Signed: Bipin Person MD at 20:53 EST , Head/Neck CTA 09/04/23 20:59 IMPRESSION: 1. Unremarkable CTA of the head and neck. All vessels are patent with no aneurysm or stenosis. 2. Peripherally enhancing mass in the right frontal lobe. Further evaluation with MRI may be beneficial. Electronically Signed: Bipin Person MD at 21:49 EST , Discharge Plan Triage Chief Complaint: Confusion ED Provider: Juve Saunders Dx/Rx/DC Orders Prescriptions: No Action furosemide 40 MG tablet 20 mg PO DAILY atenolol 25 MG tablet 25 mg PO DAILY amlodipine 5 MG tablet 5 mg PO DAILY sildenafil [Viagra] 100 MG tablet 100 mg PO PRN PRN (Reason: SEXUAL USE) glimepiride 2 MG tablet 4 mg PO BID nitroglycerin 0.4 MG tablet 0.4 mg sublingual Q5M PRN (Reason: Chest Pain) lisinopril 40 MG tablet 40 mg PO DAILY ergocalciferol (vitamin D2) 50,000 U capsule 1 tab PO FLETCHER fenofibrate 160 MG tablet 1 tab PO DAILY pantoprazole 40 mg tablet,delayed release (DR/EC) 40 mg PO DAILY rosuvastatin 40 mg tablet 40 mg PO DAILY Trulicity 0.75 mg/0.5 mL Pen Injector 0.75 mg SUBCUT FLETCHER Farxiga 10 mg Tablet 10 mg PO DAILY Toujeo Max U-300 SoloStar 300 unit/mL (3 mL) Insulin Pen 44 unit SUBCUT DAILY oxybutynin chloride 10 mg tablet extended release 24hr 10 mg PO DAILY Qty: 90 3RF ciprofloxacin HCl [Cipro] 500 mg tablet 500 mg PO BID Qty: 14 0RF oxycodone 5 mg capsule 5 mg PO Q6H PRN (Reason: pain) 7 Days Qty: 10 0RF Primary Care Provider: Maria Eugenia Garcia Referrals: Maria Eugenia Garcia, DO [Primary Care Provider] -
--- NOTE | 2023-09-04 20:29 | RAD_ITS ---
EXAM: XR CHEST, 1 VIEW CLINICAL INDICATION: weakness TECHNIQUE: Frontal view of the chest. COMPARISON: 07/24/2014 FINDINGS: LUNGS AND PLEURAL SPACES: Unremarkable. No consolidation or edema. No pneumothorax. No effusion. HEART: Unremarkable. Cardiac silhouette not enlarged. MEDIASTINUM: Central airways and mediastinal contour are unremarkable. BONES/JOINTS: Unremarkable. No acute fracture. SOFT TISSUES: Unremarkable. RAD/Chest 1 View (Portable) IMPRESSION: No radiographic evidence of acute cardiopulmonary disease. Electronically Signed: Bipin Person MD at 20:53 EST ,
[2023-09-04 20:49] LABS: Bacteria 0 SEEN /hpf (None Seen); Mucous, Urine 0 SEEN /hpf (<or=2+); Red Blood Cells-Urine 0 SEEN /hpf (0-5); Squamous Epithelial Cells - UA 0 SEEN /hpf (0-5)
[2023-09-04 20:52] LABS: Color, Urine Yellow (Yellow); Glucose, Dipstick 1000 mg/dl (Normal); Ketone-Dipstick Negative (Negative); Leukocyte Esterase-Dipstick Negative /ul (Negative); Nitrite-Dipstick Negative (Negative); Occult Blood-Urine 50 /ul (Negative); Protein-Dipstick 30 mg/dl (Negative); Urine Bilirubin Dipstick Negative (Negative); Urine Clarity Clear (Clear); Urine Urobilinogen Normal (Normal)
[2023-09-04 20:53] LABS: Alcohol, Blood (Medical)-Serum < 3.0 mg/dL
[2023-09-04 20:55] LABS: BNP,B-Type NATRIURETIC PEPTIDE 181.5 pg/mL (0-100)
[2023-09-04 20:58] LABS: ALB/GLOB Ratio 0.9 RATIO (0.9-2.4); AST(SGOT) 45 U/L (15-37); Alanine Aminotransfer ALT/SGPT 33 U/L (16-61); Albumin, Serum 3.6 g/dL (3.2-5.0); Alkaline Phosphatase 164 U/L (45-117); Anion Gap 11 (5-15); BUN 21 mg/dL (7-18); BUN/Creat Ratio 14.5 RATIO (10-20); Calcium,Total 9.1 mg/dL (8.5-10.1); Chloride 103 mmol/L (98-107); Creatinine, Serum 1.45 mg/dL (0.70-1.30); EST Glomerular Filtration Rate 50 mL/min (>60); Est Glom Filt Rate - Afr Amer 60 mL/min (>60); Estimated Creatinine Clearance 39.31 ml/min; Globulin 3.8 g/dL (2.2-4.2); Glucose 227 mg/dL (74-106); Potassium 3.9 mmol/L (3.5-5.1); Protein, Total 7.4 g/dL (6.4-8.2); Sodium Level 135 mmol/L (136-145); Troponin-I HS 18 pg/mL (3.0-78.0)
--- NOTE | 2023-09-04 20:59 | CT_ITS ---
EXAM: CT ANGIOGRAPHY HEAD AND NECK WITH INTRAVENOUS CONTRAST CLINICAL INDICATION: ams TECHNIQUE: [place]/head and neck CT angiography protocol performed with intravenous contrast. This CT exam was performed using one or more of the following dose reduction techniques: automated exposure control, adjustment of the mA and/or kV according to patient size, and/or use of iterative reconstruction technique. MIP reconstructed images were created and reviewed. CONTRAST: IV 75mL [id number] COMPARISON: No relevant prior studies available. FINDINGS: HEAD: RIGHT ANTERIOR CEREBRAL ARTERY: Unremarkable. No occlusion or significant stenosis. Anterior communicating artery is present. No aneurysm. RIGHT MIDDLE CEREBRAL ARTERY: Unremarkable. No occlusion or significant stenosis. No aneurysm. RIGHT POSTERIOR CEREBRAL ARTERY: Unremarkable. No occlusion or significant stenosis. No aneurysm. RIGHT INTRACRANIAL INTERNAL CAROTID ARTERY: Unremarkable. No significant stenosis. No dissection or occlusion. RIGHT INTRACRANIAL VERTEBRAL ARTERY: Unremarkable. No significant stenosis. No dissection or occlusion. LEFT ANTERIOR CEREBRAL ARTERY: Unremarkable. No occlusion or significant stenosis. No aneurysm. LEFT MIDDLE CEREBRAL ARTERY: Unremarkable. No occlusion or significant stenosis. No aneurysm. LEFT POSTERIOR CEREBRAL ARTERY: Unremarkable. No occlusion or significant stenosis. No aneurysm. LEFT INTRACRANIAL INTERNAL CAROTID ARTERY: Unremarkable. No significant stenosis. No dissection or occlusion. LEFT INTRACRANIAL VERTEBRAL ARTERY: Unremarkable. No significant stenosis. No dissection or occlusion. BASILAR ARTERY: Unremarkable. No occlusion or significant stenosis. No aneurysm. OTHER VASCULATURE: No vascular malformation. BRAIN AND EXTRA-AXIAL SPACES: There is a peripherally enhancing mass in the right frontal lobe that measures roughly 3.5 x 1.9 x 1.9 cm. NECK: RIGHT COMMON CAROTID ARTERY: Unremarkable. No significant stenosis. No dissection or occlusion. RIGHT EXTRACRANIAL INTERNAL CAROTID ARTERY: Unremarkable. No significant stenosis. No dissection or occlusion. RIGHT EXTERNAL CAROTID ARTERY: Unremarkable. No occlusion. RIGHT EXTRACRANIAL VERTEBRAL ARTERY: Unremarkable. No significant stenosis. No dissection or occlusion. LEFT COMMON CAROTID ARTERY: Unremarkable. No significant stenosis. No dissection or occlusion. LEFT EXTRACRANIAL INTERNAL CAROTID ARTERY: Unremarkable. No significant stenosis. No dissection or occlusion. LEFT EXTERNAL CAROTID ARTERY: Unremarkable. No occlusion. LEFT EXTRACRANIAL VERTEBRAL ARTERY: Unremarkable. No significant stenosis. No dissection or occlusion. BRACHIOCEPHALIC AND SUBCLAVIAN ARTERIES: Unremarkable as visualized. No occlusion or significant stenosis. LUNG APICES: Unremarkable as visualized. HEAD and NECK: BONES/JOINTS: Unremarkable. No discrete lytic or blastic abnormalities. SOFT TISSUES: Unremarkable. CAROTID STENOSIS REFERENCE USING NASCET CRITERIA: % ICA stenosis = (1 - narrowest ICA diameter/diameter of distal cervical ICA) x 100. Mild - <50% stenosis. Moderate - 50-69% stenosis. Severe - 70-94% stenosis. Near occlusion - 95-99% stenosis. Occluded - 100% stenosis. CT/CTA Head AND Neck W/ Contrast IMPRESSION: 1. Unremarkable CTA of the head and neck. All vessels are patent with no aneurysm or stenosis. 2. Peripherally enhancing mass in the right frontal lobe. Further evaluation with MRI may be beneficial. Electronically Signed: Bipin Person MD at 21:49 EST ,
[2023-09-04 21:00] VITALS: BP 121/61; PULSE 80; RESP 14; TEMP 36.3; O2SAT 94
[2023-09-04 21:10] LABS: Amphetamine Urine VISTA NEGATIVE (<1000 ng/mL); Barbiturate Urine VISTA NEGATIVE (< 200 ng/mL); Benzodiazepine Urine VISTA NEGATIVE (< 200 ng/mL); Cocaine Urine VISTA NEGATIVE (< 300 ng/mL); Ecstacy Urine VISTA NEGATIVE (< 500 ng/mL); Methadone Urine VISTA NEGATIVE (< 300 ng/mL); PCP Urine VISTA NEGATIVE (< 25 ng/mL); THC Urine VISTA POSITIVE (< 50 ng/mL); Vista UDS pH Range 7
[2023-09-04 21:13] LABS: White Blood Cells 0-5 SEEN /hpf (0-5)
[2023-09-04 21:43] LABS: Absolute Lymphocyte Count 0.38 X10^3/uL (0.83-4.51); Absolute Neutrophil Count 3.6 X10^3/uL (2.0-7.7); Basophil# 0.03 X10^3/uL; Basophil% 0.6 % (0-1); Eosinophil# 0.18 X10^3/uL; Eosinophils% 3.6 % (0-5); Hematocrit 29.5 % (40-54); Hemoglobin 9.4 g/dL (13.0-16.5); Lymphocyte # 0.38 X10^3/ul (0.83-4.51); Lymphocyte % 7.7 % (19-41); Mean Corp Hgb Conc 31.9 g/dL (32-36); Mean Corpuscular Hgb 27.2 pg (27.0-32.0); Mean Corpuscular Volume 85.3 fL (80-94); Mean Platelet Vol. 9.1 fl (6.2-12.0); Monocyte# 0.69 X10^3/uL; NRBC Flagged by Analyzer 0 % (0-5); Neutrophil # 3.61 X10^3/uL (2.7-7.7); Neutrophil % 73.1 % (47-70); POSITIVE DIFFERENTIAL YES; Platelet Count 150 K/mm3 (150-450); RBC Distribution Width CV 15.3 % (11.6-14.6); RBC Distribution Width SD 47.7 fl (35.1-43.9); Red Blood Count 3.46 M/mm3 (4.6-6.2); White Blood Count 4.9 K/mm3 (4.4-11.0)
[2023-09-04 21:56] LABS: Differential Indicated SCAN CRITERIA MET
[2023-09-04] MEDS: 0.9% Normal Saline (1000mL) 1,000 ML 125 ML IV (22:42)
--- NOTE | 2023-09-04 22:54 | HP.PCM.HOS_ITS ---
[facility] - General General Date of Admission: 09/04/23 Date of Service: 09/04/23 Chief Complaint: Altered mental status and syncope. HPI Narrative JEANNA ALONZO, is a 82 M with a past medical history of essential hypertension, hyperlipidemia, diabetes mellitus type 2; of unknown control, history of tobacco abuse, history of esophageal cancer, history of prostate cancer, history of bladder tumor; status post TURBT, GERD, history of GI bleed, history of AAA; status post repair, history of coronary artery disease; status post stent placement, erectile dysfunction; on as needed sildenafil and osteoarthritis who presents to [facility] ER complaining of confusion and syncope. Mr. Alonzo is not a fully reliable historian at this time as he has limited recollection of recent events so information was gathered from the chart, medical staff, computer and his at the bedside. According to the records the patient was doing fine after dinner he went out to the garage to get something out of the trunk of his car which is typical for him. Then his went out to the garage to find him with a car locked and she found him in the workshop portion of the garage unconscious for approximately 10 minutes. She denies any obvious tonic-clonic seizure activity. She further stated that he usually drinks alcohol in the garage because he keeps it out there. She was not sure if he had anything to drink tonight. The patient also did not recall if he was drinking this evening but his alcohol level in the ER was undetectable. He denies associated headache, blurred vision, slurred speech or paresthesias but he does have a superficial laceration over his right hand. He states he feels like he is back to his baseline. He denies associated fever, chills, nausea, vomiting, chest pain, palpitations or shortness of breath. In the ER his CT scan of the head revealed evidence of a right frontal mass lesion suspicious for metastatic disease in the setting of transient confusion and syncopal event and he was then admitted to the CDU under observation status for ongoing care for a stay that is expected to be less than 48 hours. [facility] Medical History Alcohol use Anemia Arthritis Back pain Bladder disease Cancer Cardiology follow-up encounter Diabetes Dietary restriction Former smoker GERD (gastroesophageal reflux disease) High cholesterol History of echocardiogram History of edema History of esophageal dilatation History of gastrointestinal hemorrhage History of GI bleed History of prostate cancer History of renal disease History of stress test Hypertension Injury of head and neck Insulin dependent diabetes mellitus Kidney disease Leg cramps Wears dentures Wears glasses Home Medications amlodipine 5 mg tablet 5 mg PO DAILY 11/17/13 [History Last Taken 03/28/23] atenolol 25 mg tablet 25 mg PO DAILY 11/17/13 [History Last Taken 03/28/23] glimepiride 2 mg tablet 4 mg PO BID 11/17/13 [History Last Taken Unknown] lisinopril 40 mg tablet 40 mg PO DAILY 11/17/13 [History Last Taken 03/05/20 07:30] nitroglycerin 0.4 mg sublingual tablet 0.4 mg sublingual Q5M PRN Chest Pain 11/17/13 [History Last Taken Unknown] sildenafil 100 mg tablet (Viagra) 100 mg PO PRN PRN SEXUAL USE 11/17/13 [History Last Taken Unknown] ergocalciferol (vitamin D2) 1,250 mcg (50,000 unit) capsule 1 tab PO FLETCHER 05/02/19 [History Last Taken Unknown] fenofibrate 160 mg tablet 1 tab PO DAILY 05/02/19 [History Last Taken Unknown] dulaglutide 0.75 mg/0.5 mL subcutaneous pen injector (Trulicity) 0.75 mg subcut FLETCHER 09/09/21 [History Last Taken Unknown] pantoprazole 40 mg tablet,delayed release 40 mg PO DAILY 09/09/21 [History Last Taken 03/28/23] rosuvastatin 40 mg tablet 40 mg PO DAILY 09/09/21 [History Last Taken Unknown] dapagliflozin propanediol 10 mg tablet (Farxiga) 10 mg PO DAILY 03/19/23 [History Last Taken Unknown] insulin glargine U-300 conc 300 unit/mL (3 mL) subcutaneous pen (Toujeo Max U- 300 SoloStar) 44 unit subcut DAILY 03/19/23 [History Last Taken Unknown] oxybutynin chloride 10 mg tablet,extended release 24 hr 10 mg PO DAILY #90 tabs 03/28/23 [Rx Last Taken Unknown] furosemide 20 mg tablet (Lasix) 20 mg PO DAILY 09/04/23 [History Last Taken Unknown] insulin degludec 200 unit/mL (3 mL) subcutaneous pen (Tresiba FlexTouch U-200 insulin) 26 unit subcut DAILY 09/04/23 [History Last Taken Unknown] Allergy/AdvReac Type Severity Reaction Status Date / Time chlorhexidine Allergy Rash Verified 09/04/23 19:36 Penicillins Allergy Unknown Verified 09/04/23 19:36 Sulfa (Sulfonamide Allergy Unknown Verified 09/04/23 19:36 Antibiotics) Family History Other COPD (chronic obstructive pulmonary disease) Surgical History History of AAA (abdominal aortic aneurysm) repair History of cardiac catheterization History of coronary artery stent placement History of herniorrhaphy History of transurethral resection of bladder tumor (TURBT) Social History Smoking Status: Former smoker alcohol intake: current alcohol intake frequency: 0-2 drinks per day Alcohol type: hard liquor ROS ROS Narrative Review of systems: Constitutional: Patient denies fever or chills. Eyes: Patient denies visual changes. ENT: Patient denies ear pain, sore throat or runny nose. Cardiovascular: Patient admits to syncope with an ~10-minute loss of consciousness. Patient denies chest pain, palpitations or heart racing. Respiratory: Patient denies shortness of breath or cough. Gastrointestinal: Patient denies abdominal pain, constipation, diarrhea, nausea or vomiting. Genitourinary: Patient denies dysuria, hematuria or urinary frequency. Musculoskeletal: Patient denies arthralgias, myalgias or neck pain but he does admit to a laceration on the dorsum of his right hand. Integumentary: Patient has a superficial laceration on the dorsum of the right hand but denies abscess or rash. Neurologic: Patient denies headache, paresthesias or weakness. Psychiatric: Patient denies anxiety, depression or suicidal ideation. Endocrine: Patient denies polyuria, polydipsia or polyphagia. Hematology: Patient denies easy bleeding or easy bruisability. 14 point review of systems otherwise negative except for positives noted above in HPI. Vital Signs Vital Signs Vital Signs: 09/04/23 19:27 09/04/23 21:00 Temperature 98.5 F 97.3 F L Temperature Source Temporal Temporal Pulse Rate 99 80 Respiratory Rate 18 14 Blood Pressure 121/66 H 121/61 H Blood Pressure Mean 84 81 Pulse Ox 92 94 Oxygen Delivery Method Room Air Room Air Weight Weight: 165 lb 5.547 oz Body Mass Index (BMI) 25.1 Physical Exam Const alert, oriented x3, no apparent distress, average body habitus, healthy appearing and well nourished General Appearance: cooperative HEENT normocephalic, head/scalp atraumatic, hearing grossly normal bilaterally, moist oral mucous membranes and oropharynx normal Eyes PERRL, EOMs intact bilaterally and conjunctivae normal Neck no lymphadenopathy and supple Resp normal respiratory effort, no retractions, no use of accessory muscles and clear to auscultation bilaterally Cardio regular rate and regular rhythm GI normal to inspection, nondistended, normoactive bowel sounds, soft to palpation, non-tender and non-distended Extremity normal to inspection, full ROM and no clubbing, cyanosis or edema Neuro oriented x3, CN's II-XII intact bilaterally, moves all extremities and no focal motor deficits Sensorium / Orientation: awake, alert, oriented to person, oriented to place and oriented to time Speech: speech normal Motor Exam: strength 5/5 throughout Psych affect normal Results Medical Records Data Attestation: I reviewed the patient's medical records Lab / Micro Data Attestation: I reviewed the patient's lab results. 09/04/23 21:28 09/04/23 19:35 Labs: Laboratory Results - last 24 hr 09/04/23 19:35: Sodium 135 L, Potassium 3.9, Chloride 103, Carbon Dioxide 21.0, Anion Gap 11, BUN 21 H, Creatinine 1.45 H, Estim Creat Clear Calc 39.31, Est GFR (MDRD) Af Amer 60, Est GFR (MDRD) Non-Af 50 L, BUN/Creatinine Ratio 14.5, Glucose 227 H, Calcium 9.1, Total Bilirubin 0.40, AST 45 H, ALT 33, Alkaline Phosphatase 164 H, Troponin I High Sens 18, B-Natriuretic Peptide 181.5 H, Total Protein 7.4, Albumin 3.6, Globulin 3.8, Albumin/Globulin Ratio 0.9, Ethyl Alcohol < 3.0 09/04/23 20:45: Urine Color Yellow, Urine Clarity Clear, Urine pH 7.0, Ur Specific Alta 1.010, Urine Protein 30 H, Urine Glucose (UA) 1000 H, Urine Ketones Negative, Urine Occult Blood 50 H, Urine Nitrite Negative, Urine Bilirubin Negative, Urine Urobilinogen Normal, Ur Leukocyte Esterase Negative, Urine RBC 0 SEEN, Urine WBC 0-5 SEEN, Ur Squamous Epith Cells 0 SEEN, Urine Bacteria 0 SEEN, Urine Mucus 0 SEEN, Urine Opiates Screen NEGATIVE, Urine Methadone Screen NEGATIVE, Ur Barbiturates Screen NEGATIVE, Ur Phencyclidine Scrn NEGATIVE, Ur Amphetamines Screen NEGATIVE, MDMA (Ecstasy) Screen NEGATIVE, U Benzodiazepines Scrn NEGATIVE, Urine Cocaine Screen NEGATIVE, U Cannabinoids Screen POSITIVE H, Ur Drug Screen Comment 09/04/23 21:28: WBC 4.9, RBC 3.46 L, Hgb 9.4 L, Hct 29.5 L, MCV 85.3, MCH 27.2, MCHC 31.9 L, RDW Std Deviation 47.7 H, RDW Coeff of Jeanette 15.3 H, Plt Count 150, MPV 9.1, Immature Gran % (Auto) 1.000 H, Neut % (Auto) 73.1 H, Lymph % (Auto) 7.7 L, Lares % (Auto) 14.0 H, Eos % (Auto) 3.6, Baso % (Auto) 0.6, Absolute Neuts (auto) 3.6, Absolute Lymphs (auto) 0.38 L, Nucleated RBC % 0 Imagaing Rad[address] Impression Brain CT 09/04/23 20:14 IMPRESSION: 1. Extensive hypodensity in the right frontal lobe that may represent edema possibly from ischemia but there is a questionable hypodense mass present. There is no hemorrhage identified. Further evaluation with MRI is recommended. 2. Underlying senescent change with small vessel ischemia. Electronically Signed: Bipin Person MD at 20:52 EST , Chest X-Ray 09/04/23 20:29 IMPRESSION: No radiographic evidence of acute cardiopulmonary disease. Electronically Signed: Bipin Person MD at 20:53 EST , Head/Neck CTA 09/04/23 20:59 IMPRESSION: 1. Unremarkable CTA of the head and neck. All vessels are patent with no aneurysm or stenosis. 2. Peripherally enhancing mass in the right frontal lobe. Further evaluation with MRI may be beneficial. Electronically Signed: Bipin Person MD at 21:49 EST , Assessment & Plan Assessment/Plan (1) Syncope and collapse: (2) Brain mass: (3) History of esophageal cancer: PLAN: Plan 1. Syncopal event with approximately 10-minute loss of consciousness with CT scan of the head positive for apparently newly diagnosed right frontal brain mass suspicious for metastases - Admit to CDU under observation status. Check MRI of the brain to confirm suspicion of mass lesion. Check echocardiogram to evaluate left ventricular ejection fraction. Check carotid Doppler to evaluate for stenosis. We will consult [facility] teleneu[facility] for further recommendations regarding this patient's workup and evaluation with help appreciated in advance. Finally, if patient is confirmed to have metastatic brain lesion he will need to be set up to follow-up with a neurosurgeon for possible biopsy if patient is agreeable. 2. History of esophageal cancer in addition to prostate cancer complicating #1 - Patient is suspected to have metastatic disease until proven otherwise. 3. History of prostate cancer compounding #1 & #2 - Check PSA. Otherwise continue supportive care. 4. Essential hypertension - Hold scheduled antihypertensives in light of #1. Give IV hydralazine as needed for systolic blood pressure greater than 160 mmHg. 5. Hyperlipidemia - Resume statin and check lipid profile. 6. Diabetes mellitus type 2; of unknown control - ADA diet. Fingerstick blood sugars before every meal and at bedtime + scale insulin. Check hemoglobin A1c to objectively assess quality of diabetic control. 7. History of coronary artery disease; status post stent placement - Stable. Continue current treatment. 8. History of AAA; status post repair - Stable. 9. DVT prophylaxis - Heparin 5,000 units SQ twice daily plus SCDs. Total time: Approximately 70 minutes. Charges/Coding Visit Charges OBSV E&M: 92074 Observ/hosp same date L2
[2023-09-04 22:56] LABS: Differential Comment SCANNED
[2023-09-04 23:31] VITALS: BP 123/73; PULSE 80; RESP 21; TEMP 36.4; O2SAT 95
[2023-09-04 23:35] VITALS: BP 123/73; PULSE 81; RESP 15; O2SAT 95
[2023-09-05] VITALS (7 sets, daily range): BP systolic 102–139; BP diastolic 60–78; PULSE 71–84; RESP 16–20; TEMP 36.3–36.7; O2SAT 93–98; BMI 23.3
--- NOTE | 2023-09-05 00:53 | ECHOD_ITS ---
Reason For Study: Syncope Procedure This was a 2D Doppler, Color Flow transthoracic echocardiogram. Exam performed portable in ICU/CCU. Left Ventricle Normal LV size. Mild concentric left ventricular hypertrophy. Redundant mitral valve cords with mild systolic anterior motion but no gradient across the LVOT. The left ventricular ejection fraction is 65 %. Diastolic function is indeterminate. Right Ventricle Normal right ventricle. Atria The left and right atria are normal. Mitral Valve Trivial mitral valve insufficiency. Tricuspid Valve Trivial tricuspid valve insufficiency. Normal pulmonary artery pressure. Aortic Valve Aortic sclerosis, no stenosis. Pulmonic Valve The pulmonic valve is not well visualized. Great Vessels Normal sized aortic root. Pericardium/Pleural No pericardial effusion. MMode/2D Measurements & Calculations LVIDd: 4.5 cm IVSd: 1.2 cm Ao root diam: 3.3 cm LVIDs: 2.9 cm LVPWd: 1.3 cm LA dimension: 3.5 cm RVDd: 3.8 cm FS: 36.1 % LAV(MOD-bp): 61.9 ml LVAd ap4: 26.5 cm2 SV(MOD-sp4): 47.8 ml LAV(MOD-bp) Indexed: 34.3 ml/m2 LVLd ap4: 7.0 cm LAV(MOD-sp2): 58.1 ml EDV(MOD-sp4): 78.5 ml LAV(MOD-sp4): 60.6 ml EDV(sp4-el): 84.9 ml LVAs ap4: 14.8 cm2 LVLs ap4: 6.1 cm ESV(MOD-sp4): 30.6 ml ESV(sp4-el): 30.6 ml EF(MOD-sp4): 61.0 % EF(sp4-el): 63.9 % SV(sp4-el): 54.3 ml LA A4 area: 21.0 cm2 RA A4 area: 16.0 cm2 TAPSE: 2.6 cm Time Measurements MV dec time: 0.20 sec Doppler Measurements & Calculations MV E max angel: 84.0 cm/sec Lat Peak E' Angel: 9.2 cm/sec Med Peak E' Angel: 7.0 cm/sec MV A max angel: 110.6 cm/sec E/E' lat: 9.2 E/E' med: 12.0 MV E/A: 0.76 MV V2 max: 123.4 cm/sec MV P1/2t max angel: 105.1 cm/sec Ao V2 max: 117.5 cm/sec MV max P.1 mmHg MV P1/2t: 74.8 msec Ao max P.5 mmHg MV V2 mean: 69.0 cm/sec MV dec slope: 411.6 cm/sec2 Ao V2 mean: 78.2 cm/sec MV mean P.2 mmHg Ao mean P.9 mmHg MV V2 VTI: 30.3 cm MVA(P1/2t): 2.9 cm2 Ao V2 VTI: 27.8 cm AV (velocity ratio): 0.76 LV V1 max: 87.9 cm/sec PA V2 max: 100.4 cm/sec TR max angel: 191.8 cm/sec LV V1 max P.1 mmHg PA V2 mean: 68.9 cm/sec TR max P.7 mmHg LV V1 mean P.9 mmHg LV V1 mean: 65.7 cm/sec LV V1 VTI: 21.0 cm ECHO/Echo Complete Interpretation Summary Mild concentric left ventricular hypertrophy. The left ventricular ejection fraction is 65 %. Diastolic function is indeterminate. Redundant mitral valve cords with mild systolic anterior motion but no gradient across the LVOT. Aortic sclerosis, no stenosis. Ordering Physician: Gilberto Lui Performed By: Miah Luevano RCS
--- NOTE | 2023-09-05 00:53 | CDU_ITS ---
Reason For Study: Syncope Rt. Velocities/BP Lt. Velocities/BP Prox CCA 82.5/6 cm/sec. Prox CCA 64.5/10.7 cm/sec. Mid CCA 69.2/8.8 cm/sec. Mid CCA 67.4/14.5 cm/sec. Dist CCA 60.7/9.7 cm/sec. Dist CCA 63.6/15.4 cm/sec. Prox ICA 69.2/13.5 cm/sec. Prox ICA 71.1/15.4 cm/sec. Mid ICA 70.2/17.3 cm/sec. Mid ICA 57/15.4 cm/sec. Dist ICA 57.9/14.5 cm/sec. Dist ICA 62.6/19.2 cm/sec. Rt. ICA/CCA = 1.01. Lt. ICA/CCA = 1.10. Prox ECA 76.8/6 cm/sec. Prox ECA 82.5/6.9 cm/sec. Rt. Vert. 46.6/10.7 cm/sec. Lt. Vert. 25.1/7.3 cm/sec. Right Extracranial There is intimal thickening but no significant atherosclerotic plaque noted in the right common carotid artery. There is heterogeneous, irregular atherosclerotic plaque noted in the right internal carotid artery. The right internal carotid artery is very tortuous. There is intimal thickening but no significant atherosclerotic plaque noted in the right external carotid artery. Antegrade flow is noted in the right vertebral artery. Left Extracranial There is intimal thickening but no significant atherosclerotic plaque noted in the left common carotid artery. There is heterogeneous, irregular atherosclerotic plaque noted in the left internal carotid artery. There is heterogeneous, irregular atherosclerotic plaque noted in the left external carotid artery. Antegrade flow is noted in the left vertebral artery. Procedure Carotid Duplex 95256. This is a Carotid Duplex examination using B-mode, color flow and specral Doppler. Exam performed portable in ICU/CCU. VL/Carotid Duplex Ultrasound Interpretation Summary Mild (<50%) stenosis right extracranial internal carotid. Mild (<50%) stenosis left extracranial internal carotid. Patent and antegrade vertebrals bilaterally. Ordering Physician: Gilberto Lui Referring Physician: Maria Eugenia Garcia Performed By: Gianna Belle RVT
--- NOTE | 2023-09-05 00:53 | MRI_ITS ---
STUDY: MRI BRAIN WITH AND WITHOUT CONTRAST REASON FOR EXAM: Male, 82 years old. Right frontal mass on head CT with known esoph. ca, found unresponsive for 10mins 09/04/23 TECHNIQUE: Standardized multiplanar fat and water weighted pulse sequences were obtained. IV 15ML CLARISCAN was administered for the contrast portion of the examination. COMPARISON: Head CT dated September 04, 2023 FINDINGS: A thick wall peripherally enhancing centrally necrotic mass is present in the most anterior superior aspect of the right frontal lobe measuring 2.38 x 2.08 cm in diameter and surrounded by significant vasogenic edema. Very minimal 1 to 2 mm of leftward midline shift is present. The vasogenic edema extends into the anterior aspect of the corpus callosum and the full anterior to posterior aspect of the frontal lobe. No additional metastatic lesions are seen in either of the cerebral hemispheres or in the posterior fossa. No demonstrated abnormal thickening or enhancement of meninges or dura on the current study. No visualized skull lesions. There is mild cerebral atrophy with widening of the extra-axial spaces and ventricular dilatation. There are multiple white matter hyperintensities, distributed throughout the deep white matter tracts of the cerebral hemispheres, consistent with moderate chronic white matter ischemic changes. There is no evidence for recent intracranial ischemia or other cause of cytotoxic edema on diffusion weighted imaging (DWI). Normal T2* images of the brain without demonstrated susceptibility artifact. There is no demonstrated hemosiderin stain. Normal bilateral basal ganglia. Normal thalami. There is no extra-axial fluid accumulation. Normal flow voids within the major intracranial circulation suggesting patency by spin echo criteria. Normal venous enhancement. There is no enhancing intra-axial or extra-axial abnormality. Normal sella turcica, pituitary gland, infundibular stalk, optic chiasm and hypothalamus. Normal tectal plate and pineal gland. Normal midbrain, kee and medulla. Normal cerebellum. Normal basal cisterns. Normal bilateral temporal bones. Normal bilateral internal auditory canals. No demonstrated orbital abnormality, within the constraints of a routine brain study. Normal visualized paranasal sinuses. Normal calvarium and skull base. Normal visualized soft tissue structures. Normal visualized upper cervical spine. 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 1. A thick wall peripherally enhancing centrally necrotic mass is present in the most anterior superior aspect of the right frontal lobe measuring 2.38 x 2.08 cm in diameter and surrounded by significant vasogenic edema. Very minimal 1 to 2 mm of leftward midline shift is present. The vasogenic edema extends into the anterior aspect of the corpus callosum and the full anterior to posterior aspect of the frontal lobe. No additional metastatic lesions are seen in either of the cerebral hemispheres or in the posterior fossa. No demonstrated abnormal thickening or enhancement of meninges or dura on the current study. No visualized skull lesions. Electronically Signed: Donta Suarez MD at 11:48 EST ,
[2023-09-05 01:39] LABS: Bedside Glucose 160 mg/dL (74-106)
--- NOTE | 2023-09-05 02:01 | NURSING ---
$275 gordon taken to security, security brought it with them. Pt has the receipt for the money.
[2023-09-05 05:00] LABS: Cholesterol 116 mg/dL (200); High Density Lipoprotein 36 mg/dL; PSA,Total - Annual Screen 2.44 ng/mL (0.00-4.00); Triglycerides 250 mg/dL; Very Low Density Lipoprotein 50 mg/dL (5-40)
[2023-09-05] MEDS: 0.9% Saline Lock 10 ML Syringe IV (06:57)
[2023-09-05] MEDS: 0.9% Normal Saline (1000mL) 1,000 ML 100 ML IV ×2 (06:57→16:53)
[2023-09-05 07:17] LABS: Bedside Glucose 163 mg/dL (74-106)
--- NOTE | 2023-09-05 07:46 | PCM.PN.HOSP ---
Reason for Visit Reason for Visit: Diagnoses Other specified disorders of brain (09/04/23) Syncope and collapse (09/04/23) Personal history of malignant neoplasm of esophagus (09/04/23) Subjective Subjective Patient is an 82-year-old gentleman with past medical history significant for esophageal CA, prostate CA as well as bladder CA apparently found unresponsive and confused by the . CT of the head obtained on admission demonstrated Extensive hypodensity in the right frontal lobe that may represent edema possibly from ischemia but there is a questionable hypodense mass present. Currently admitted to monitored bed for further evaluation Objective Data Objective Data Vital Signs: Vital Signs Temp Pulse Resp BP Pulse Ox O2 Del Method 97.7 F L 84 19 H 131/68 H 94 Room Air 09/05/23 01:37 09/05/23 06:48 09/05/23 01:37 09/05/23 06:48 09/05/23 01:37 09/05/23 01:37 Oxygen Delivery Method Room Air Weight: 67.6 kg Body Mass Index (BMI) 23.3 Intake & Output: Intake and Output for Last 24 Hours 09/03/23 09/04/23 09/05/23 23:59 23:59 23:59 Intake Total 900.42 / 900.42 Output Total 600 / 600 Balance 300.42 / 300.42 Lab / Micro Data 09/04/23 21:28 09/04/23 19:35 Labs: Laboratory Results - last 24 hr 09/04/23 19:35: Sodium 135 L, Potassium 3.9, Chloride 103, Carbon Dioxide 21.0, Anion Gap 11, BUN 21 H, Creatinine 1.45 H, Estim Creat Clear Calc 39.31, Est GFR (MDRD) Af Amer 60, Est GFR (MDRD) Non-Af 50 L, BUN/Creatinine Ratio 14.5, Glucose 227 H, Calcium 9.1, Total Bilirubin 0.40, AST 45 H, ALT 33, Alkaline Phosphatase 164 H, Troponin I High Sens 18, B-Natriuretic Peptide 181.5 H, Total Protein 7.4, Albumin 3.6, Globulin 3.8, Albumin/Globulin Ratio 0.9, Ethyl Alcohol < 3.0 09/04/23 20:45: Urine Color Yellow, Urine Clarity Clear, Urine pH 7.0, Ur Specific [place] 1.010, Urine Protein 30 H, Urine Glucose (UA) 1000 H, Urine Ketones Negative, Urine Occult Blood 50 H, Urine Nitrite Negative, Urine Bilirubin Negative, Urine Urobilinogen Normal, Ur Leukocyte Esterase Negative, Urine RBC 0 SEEN, Urine WBC 0-5 SEEN, Ur Squamous Epith Cells 0 SEEN, Urine Bacteria 0 SEEN, Urine Mucus 0 SEEN, Urine Opiates Screen NEGATIVE, Urine Methadone Screen NEGATIVE, Ur Barbiturates Screen NEGATIVE, Ur Phencyclidine Scrn NEGATIVE, Ur Amphetamines Screen NEGATIVE, MDMA (Ecstasy) Screen NEGATIVE, U Benzodiazepines Scrn NEGATIVE, Urine Cocaine Screen NEGATIVE, U Cannabinoids Screen POSITIVE H, Ur Drug Screen Comment 09/04/23 21:28: WBC 4.9, RBC 3.46 L, Hgb 9.4 L, Hct 29.5 L, MCV 85.3, MCH 27.2, MCHC 31.9 L, RDW Std Deviation 47.7 H, RDW Coeff of Jeanette 15.3 H, Plt Count 150, MPV 9.1, Immature Gran % (Auto) 1.000 H, Neut % (Auto) 73.1 H, Lymph % (Auto) 7.7 L, [place] % (Auto) 14.0 H, Eos % (Auto) 3.6, Baso % (Auto) 0.6, Absolute Neuts (auto) 3.6, Absolute Lymphs (auto) 0.38 L, Nucleated RBC % 0, Differential Comment SCANNED 09/05/23 01:02: POC Glucose 160 H 09/05/23 04:25: Triglycerides 250 H, Cholesterol 116, LDL Cholesterol 30, VLDL Cholesterol 50 H, HDL Cholesterol 36 L, PSA Screen 2.44 09/05/23 06:54: POC Glucose 163 H Radiography Diagnostic Testing: Radiology Impression Brain CT 09/04/23 20:14 IMPRESSION: 1. Extensive hypodensity in the right frontal lobe that may represent edema possibly from ischemia but there is a questionable hypodense mass present. There is no hemorrhage identified. Further evaluation with MRI is recommended. 2. Underlying senescent change with small vessel ischemia. Electronically Signed: Bipin Person MD at 20:52 EST , Chest X-Ray 09/04/23 20:29 IMPRESSION: No radiographic evidence of acute cardiopulmonary disease. Electronically Signed: Bipin Person MD at 20:53 EST , Head/Neck CTA 09/04/23 20:59 IMPRESSION: 1. Unremarkable CTA of the head and neck. All vessels are patent with no aneurysm or stenosis. 2. Peripherally enhancing mass in the right frontal lobe. Further evaluation with MRI may be beneficial. Electronically Signed: Bipin Person MD at 21:49 EST , Physical Exam Narrative GENERAL: cooperative HEENT: Atraumatic; normocephalic EYES; Anicteric, Normal Conjunctiva NECK; supple, normal thyroid, RESPIRATORY: Diminished to auscultation CARDIOVASCULAR: Regular S1 S2, GI: soft, normoactive bowel sounds, : No Renal angle tenderness; EXTREMITIES: No edema, no clubbing, MUSCULOSKELETAL: no muscle wasting NEURO: Awake; no lateralizing signs. SKIN: No Rash PSYCH; Flat affect Assessment & Plan Assessment/Plan (1) Syncope and collapse: (2) Brain mass: (3) History of esophageal cancer: PLAN: Plan Patient is an 82-year-old gentleman with past medical history significant for esophageal CA, prostate CA as well as bladder CA apparently found unresponsive and confused by the . CT of the head obtained on admission demonstrated Extensive hypodensity in the right frontal lobe that may represent edema possibly from ischemia but there is a questionable hypodense mass present. Currently admitted to monitored bed for further evaluation . Unresponsiveness ? Differential diagnosis includes syncopal episode versus seizure. CT of the head and neck obtained on admission did demonstrate Extensive hypodensity in the right frontal lobe that may represent edema possibly from ischemia but there is a questionable hypodense mass present. Admitted to monitored bed subsequent evaluation with MRI with and without contrast [facility]. History of esophageal cancer ? Status post resection with subsequent chemo and radiation adjuvant therapy patient apparently in remission 3.History of bladder ? Status post resection 4. History of prostate CA ? Treated with radiation initially had a recurrence and subsequently underwent TURP 5. History of renal cell carcinoma 6. Hypertension - Blood pressure controlled, home medications continued with dose adjustment as needed 7. Diabetes mellitus type II -patient's oral hypoglycemics held. Placed on long acting insulin, Accu-Cheks a.c. and at bedtime and covered with sliding scale insulin 8. Dyslipidemia -Patient is on statin therapy, continued at home dose 10. Coronary artery disease ? With previous PCI patient is on guideline directed medical therapy 11. History of AAA ? Status post repair 12. DVT prophylaxis ? SC heparin Time spent in the patient's overall evaluation,decision-making process, review of diagnostic data, adjustment of management, discussion with other providers, nursing nursing and ancillary staff involved in patient's care documentation, 55 Minutes Advance planning; did discuss with the patient and family regarding advanced directives as well as CODE STATUS. Did explain the various scenarios involved ( FULL CODE, DNR CCA, DNR CCA with no intubation, and DNR CC and what each meant) patient elected to be DNR CCA no intubation. Order was placed. Time spent on discussion 18 minutes. Charges/Coding Visit Charges Inpatient E&M: 12905 Subs Hosp L3 Procedures Hospitalists Procedures: 38706 Advncd Care Plan 30 Min
[2023-09-05 08:09] LABS: Hemoglobin A1c 9.2 % (3.8-5.6)
[2023-09-05 11:56] LABS: Bedside Glucose 161 mg/dL (74-106)
[2023-09-05] MEDS: Atenolol 25 MG Tablet PO (12:11)
[2023-09-05] MEDS: amLODIPine 5 MG Tablet PO (12:11)
[2023-09-05] MEDS: Insulin Glargine-YFGN 100 UNIT/ML Pen 24 UNIT SC (12:11)
[2023-09-05] MEDS: Pantoprazole Sodium 40 MG Tablet PO (12:12)
[2023-09-05] MEDS: Tolterodine Tartrate 2 MG CAP.SA PO (12:12)
[2023-09-05] MEDS: Lisinopril 40 MG Tablet PO (12:12)
[2023-09-05] MEDS: Fenofibrate 145 MG Tablet PO (12:12)
[2023-09-05] MEDS: Insulin Lispro 100 UNIT/ML INSULN.PEN SC ×3 (12:16→23:11)
[2023-09-05] MEDS: Heparin Injection (Vial) 5,000 UNIT/ML VIAL 5000 UNIT SC ×2 (12:23→22:19)
--- NOTE | 2023-09-05 12:35 | NEURO.CONS ---
Assessment and Plan: Neuro Assessment/Plan JEANNA ALONZO is a 82 M with a past medical history of esophageal cancer, prostate cancer both in remission, being evaluated by Teleneurology for new mass in the R frontal lobe with signficant edema and syncope. History and exam are benign for focal deficits or progressive symptoms. Ddx for syncope includes possible seizure from the the R frontal mass although history is unclear, orthostatic syncope (orthostatic vitals relatively without sigfniciant change), cardiogenic (TTE pending), cerebrovascular (no stroke on MRI in addition to the mass, CTA is relatively clear except a non-occlusive soft plaque of the LESLEE). Currently ddx for the mass is new metastatic lesion vs infection vs autoimmune disease etc. The mass itself has a sigfniciant amount of vasogenic edema and therefore would not consider stroke in ddx. Re new mass lesion, pt has had routine regular checkups and is in remission. Unclear what type of cancer he had (adenocarcinoma vs squamous cell) but there are low metastatic rates to the brain. Unlikely infection given relatively benign infection history but cannot rule out. Unclear why there would be a new granulomatous or autoimmune related disease given he is not on active chemo but pt does not remember which agents he was on previously either Plan: - given the high likelihood this could have been seizure related, recommend starting KEppra 500mg BID if other workup for typical causes of syncope is negative. The EEG with slowing in the region of the mass. - there is significant vasogenic edema but his exam is benign and without diagnosis of this lesion, would hold off on steroids currently. Given the amount of edema, would NOT recommend LP. - pending TTE - recommend discussion with [facility] oncology team given he is already established there and possible transfer for additional workup. He may benefits from being seen inpatient by neurosurgery and medical oncology teams. - would hold on additional imaging for additional metastatic disease as he has followup imaging scheduled for next week already and if her transfers, would be best if all imaging is locally available. - if hospitalized for prolonged period of time, CIWA monitoring and consider librium taper (rather than PRN ativan which can impede evaluation of mental state) to prevent withdrawal I personally attended this patient and spent a total time of 60 minutes evaluating this patient including clinical assessment, review of chart, medical history imaging, and determining appropriate treatment and workup. HPI Consult Data Date of Consult: 09/05/23 HPI Narrative HPI Narrative: JEANNA ALONZO, is a 82 M with a past medical history of essential hypertension, hyperlipidemia, diabetes mellitus type 2; of unknown control, history of tobacco abuse, history of esophageal cancer, history of prostate cancer, history of bladder tumor; status post TURBT, GERD, history of GI bleed, history of AAA; status post repair, history of coronary artery disease; status post stent placement, erectile dysfunction; on as needed sildenafil and osteoarthritis who presents to [facility] ER complaining of confusion and syncope. Mr. Alonzo is not a fully reliable historian at this time as he has limited recollection of recent events so information was gathered from the chart, medical staff, computer and his at the bedside. According to the records the patient was doing fine after dinner he went out to the garage to get something out of the trunk of his car which is typical for him. Then his went out to the garage to find him with a car locked and she found him in the workshop portion of the garage unconscious for approximately 10 minutes. She denies any obvious tonic-clonic seizure activity. She further stated that he usually drinks alcohol in the garage because he keeps it out there. She was not sure if he had anything to drink tonight. The patient also did not recall if he was drinking this evening but his alcohol level in the ER was undetectable. He denies associated headache, blurred vision, slurred speech or paresthesias but he does have a superficial laceration over his right hand. He states he feels like he is back to his baseline. He denies associated fever, chills, nausea, vomiting, chest pain, palpitations or shortness of breath. In the ER his CT scan of the head revealed evidence of a right frontal mass lesion suspicious for metastatic disease in the setting of transient confusion and syncopal event and he was then admitted to the [facility] under observation status for ongoing care for a stay that is expected to be less than 48 hours. Neurologic History Pt feels back t normal, no headaches currently. No numbness or tingling or weakness one side vs another when he woke up of currently. Had not had focal symptoms off and on either. Started treatment several yrs ago for a lower esophageal cancer and has been in remission for the last 1+ years with frequent scans every 6 months, last one is 6 months from now and he is currently due for new scans on Sunday next week. No maintenance meds currently, he did not have metastatic disease per his oncologist and is in remission Has a ho prostate cancer many years ago, was treated locally No new pain or difficulty swallowing recently, changes in diet or food/fluid intake No changes in BP meds in the last month, no meds added, stopped. He has not had syncope episodes before. About 3-6 months ago had an episode where he fell and hit his head but remembers falling which he does not with this episode. Currently no noted head lacerations of bruising. Does not know if he hit his head but no pain or headache. Remembered was in his care trying to get hunting gear out and was getting something from the car for that. Does not remember feeling faint, changes in vision, or lightheadedness. First thing he remembers after was being transported. No clear evidence of bowel incontinance. Hurt his R hand on the fall. NEver had seizures, stroke in the past Currently drinks 1 glass of vodka a day per him (but may be more per family). Not smoking currently Pt denies fevers, chills, weight loss. [facility] Medical History Alcohol use Anemia Arthritis Back pain Bladder disease Cancer Cardiology follow-up encounter Diabetes Dietary restriction Former smoker GERD (gastroesophageal reflux disease) High cholesterol History of echocardiogram History of edema History of esophageal dilatation History of gastrointestinal hemorrhage History of GI bleed History of prostate cancer History of renal disease History of stress test Hypertension Injury of head and neck Insulin dependent diabetes mellitus Kidney disease Leg cramps Wears dentures Wears glasses Home Medications amlodipine 5 mg tablet 5 mg PO DAILY 11/17/13 [History Last Taken 03/28/23] atenolol 25 mg tablet 25 mg PO DAILY 11/17/13 [History Last Taken 03/28/23] glimepiride 2 mg tablet 4 mg PO BID 11/17/13 [History Last Taken Unknown] lisinopril 40 mg tablet 40 mg PO DAILY 11/17/13 [History Last Taken 03/05/20 07:30] nitroglycerin 0.4 mg sublingual tablet 0.4 mg sublingual Q5M PRN Chest Pain 11/17/13 [History Last Taken Unknown] sildenafil 100 mg tablet (Viagra) 100 mg PO PRN PRN SEXUAL USE 11/17/13 [History Last Taken Unknown] ergocalciferol (vitamin D2) 1,250 mcg (50,000 unit) capsule 1 tab PO FLETCHER 05/02/19 [History Last Taken Unknown] fenofibrate 160 mg tablet 1 tab PO DAILY 05/02/19 [History Last Taken Unknown] dulaglutide 0.75 mg/0.5 mL subcutaneous pen injector (Trulicity) 0.75 mg subcut FLETCHER 09/09/21 [History Last Taken Unknown] pantoprazole 40 mg tablet,delayed release 40 mg PO DAILY 09/09/21 [History Last Taken 03/28/23] rosuvastatin 40 mg tablet 40 mg PO DAILY 09/09/21 [History Last Taken Unknown] dapagliflozin propanediol 10 mg tablet (Farxiga) 10 mg PO DAILY 03/19/23 [History Last Taken Unknown] insulin glargine U-300 conc 300 unit/mL (3 mL) subcutaneous pen (Toujeo Max U-300 SoloStar) 44 unit subcut DAILY 03/19/23 [History Last Taken Unknown] oxybutynin chloride 10 mg tablet,extended release 24 hr 10 mg PO DAILY #90 tabs 03/28/23 [Rx Last Taken Unknown] furosemide 20 mg tablet (Lasix) 20 mg PO DAILY 09/04/23 [History Last Taken Unknown] insulin degludec 200 unit/mL (3 mL) subcutaneous pen (Tresiba FlexTouch U-200 insulin) 26 unit subcut DAILY 09/04/23 [History Last Taken Unknown] Allergy/AdvReac Type Severity Reaction Status Date / Time chlorhexidine Allergy Rash Verified 09/04/23 19:36 Penicillins Allergy Unknown Verified 09/04/23 19:36 Sulfa (Sulfonamide Allergy Unknown Verified 09/04/23 19:36 Antibiotics) Family History Other COPD (chronic obstructive pulmonary disease) Surgical History History of AAA (abdominal aortic aneurysm) repair History of cardiac catheterization History of coronary artery stent placement History of herniorrhaphy History of transurethral resection of bladder tumor (TURBT) Social History Smoking Status: Former smoker alcohol intake: current alcohol intake frequency: 0-2 drinks per day Alcohol type: hard liquor Vital Signs Vital Signs Vital Signs: 09/04/23 19:27 09/04/23 21:00 09/04/23 23:31 Temperature 98.5 F 97.3 F L 97.5 F L Temperature Source Temporal Temporal Temporal Pulse Rate 99 80 80 Pulse Rate [Lying] Pulse Rate [Sitting (for 1 minute prior to obtaining)] Pulse Rate [Standing (for 1 minute prior to obtaining)] Respiratory Rate 18 14 21 H Respiratory Effort Respiratory Depth Respiratory Pattern Blood Pressure 121/66 H 121/61 H 123/73 H Blood Pressure [Lying] Blood Pressure [Sitting (for 1 minute prior to obtaining)] Blood Pressure [Standing (for 1 minute prior to obtaining)] Blood Pressure Mean 84 81 89 Blood Pressure Mean [Lying] Blood Pressure Mean [Sitting (for 1 minute prior to obtaining)] Blood Pressure Mean [Standing (for 1 minute prior to obtaining)] Pulse Ox 92 94 95 Oxygen Delivery Method Room Air Room Air Room Air 09/04/23 23:31 09/04/23 23:35 09/05/23 01:37 Temperature 97.7 F L Temperature Source Oral Pulse Rate 80 81 82 Pulse Rate [Lying] Pulse Rate [Sitting (for 1 minute prior to obtaining)] Pulse Rate [Standing (for 1 minute prior to obtaining)] Respiratory Rate 21 H 15 19 H Respiratory Effort Respiratory Depth Respiratory Pattern Blood Pressure 123/73 H 135/75 H Blood Pressure [Lying] Blood Pressure [Sitting (for 1 minute prior to obtaining)] Blood Pressure [Standing (for 1 minute prior to obtaining)] Blood Pressure Mean 89 95 Blood Pressure Mean [Lying] Blood Pressure Mean [Sitting (for 1 minute prior to obtaining)] Blood Pressure Mean [Standing (for 1 minute prior to obtaining)] Pulse Ox 95 95 94 Oxygen Delivery Method Room Air Room Air 09/05/23 00:56 09/05/23 06:48 09/05/23 08:14 Temperature Temperature Source Pulse Rate Pulse Rate [Lying] 84 Pulse Rate [Sitting (for 1 minute prior to obtaining)] 81 Pulse Rate [Standing (for 1 minute prior to obtaining)] 83 Respiratory Rate Respiratory Effort Normal Non-Labored Respiratory Depth Normal Respiratory Pattern Normal Blood Pressure Blood Pressure [Lying] 131/68 H Blood Pressure [Sitting (for 1 minute prior to obtaining)] 127/78 H Blood Pressure [Standing (for 1 minute prior to obtaining)] 139/73 H Blood Pressure Mean Blood Pressure Mean [Lying] 89 Blood Pressure Mean [Sitting (for 1 minute prior to obtaining)] 94 Blood Pressure Mean [Standing (for 1 minute prior to obtaining)] 95 Pulse Ox 98 Oxygen Delivery Method Room Air Room Air Weight Weight: 67.6 kg Body Mass Index (BMI) 23.3 EEG Results Procedure Details EEG Procedure Details: JEANNA ALONZO is a 82 year old M with a past medical history of , who presents for evaluation of Electroencephalogram on DATE at TIME Physical Exam Narrative -? General: Laying comfortably in bed; in no acute distress. -? HENT: Normal oropharynx and mucosa. Normal external appearance of ears and nose. Exophthalmos. -? Neck: Supple, no pain or tenderness -? CV:? No peripheral edema. -? Pulmonary:? Normal respiratory effort. -? Ext: No cyanosis, edema, or deformity -? Skin: No rash. Normal palpation of skin.? -? Musculoskeletal: full range of motion; no joint tenderness. Normal digits and nails by inspection. No clubbing. -? NEURO: -? Mental Status: The patient was alert and oriented to time, place, and person. Normal recent/remote memory, concentration, and general fund of knowledge. -? Language: speech is clear.? Naming, repetition, fluency, and comprehension intact. -? Cranial Nerves: EOMI, visual nielson full, no facial asymmetry, facial sensation intact, hearing intact, tongue midline, no evidence of atrophy or fibrillations. Sternocleidomastoid and trapezius were equally strong. Soft palate raises equally, no uvular deviations -? Motor: normal bulk, tone, and strength throughout. No pronator drift or satelliting. Upper and lower extremities equal bilaterally. Detailed strength exam as performed by the nurse/JENISE and witnessed by the physician: R L SA 5 5 EE 5 5 EF 5 5 WE WF Gravity Prospecting Observer 5 5 HF 5 5 KE 5 5 KF 5 5 DF 5 5 PF 5 5 Detailed reflex exam as performed by the nurse/JENISE and witnessed by the physician: R L Biceps Patellar Ankle Babinski mute mute -? Tone: is normal and bulk is normal -? Sensation- Intact to light touch bilaterally -? Coordination: No dysmetria on [id number], finger follow finger or [id number]. -? Gait- Gait initiation was normal. Narrow base with slight shuffling gait which is not his normal gait (per pt he feel stiff and hasn't walked all day) Turns were in stride. Lab / Micro Data 09/04/23 21:28 09/04/23 19:35 Labs: Laboratory Results - last 24 hr 09/04/23 19:35: Sodium 135 L, Potassium 3.9, Chloride 103, Carbon Dioxide 21.0, Anion Gap 11, BUN 21 H, Creatinine 1.45 H, Estim Creat Clear Calc 39.31, Est GFR (MDRD) Af Amer 60, Est GFR (MDRD) Non-Af 50 L, BUN/Creatinine Ratio 14.5, Glucose 227 H, Calcium 9.1, Total Bilirubin 0.40, AST 45 H, ALT 33, Alkaline Phosphatase 164 H, Troponin I High Sens 18, B-Natriuretic Peptide 181.5 H, Total Protein 7.4, Albumin 3.6, Globulin 3.8, Albumin/Globulin Ratio 0.9, Ethyl Alcohol < 3.0 09/04/23 20:45: Urine Color Yellow, Urine Clarity Clear, Urine pH 7.0, Ur Specific [place] 1.010, Urine Protein 30 H, Urine Glucose (UA) 1000 H, Urine Ketones Negative, Urine Occult Blood 50 H, Urine Nitrite Negative, Urine Bilirubin Negative, Urine Urobilinogen Normal, Ur Leukocyte Esterase Negative, Urine RBC 0 SEEN, Urine WBC 0-5 SEEN, Ur Squamous Epith Cells 0 SEEN, Urine Bacteria 0 SEEN, Urine Mucus 0 SEEN, Urine Opiates Screen NEGATIVE, Urine Methadone Screen NEGATIVE, Ur Barbiturates Screen NEGATIVE, Ur Phencyclidine Scrn NEGATIVE, Ur Amphetamines Screen NEGATIVE, MDMA (Ecstasy) Screen NEGATIVE, U Benzodiazepines Scrn NEGATIVE, Urine Cocaine Screen NEGATIVE, U Cannabinoids Screen POSITIVE H, Ur Drug Screen Comment 09/04/23 21:28: WBC 4.9, RBC 3.46 L, Hgb 9.4 L, Hct 29.5 L, MCV 85.3, MCH 27.2, MCHC 31.9 L, RDW Std Deviation 47.7 H, RDW Coeff of Jeanette 15.3 H, Plt Count 150, MPV 9.1, Immature Gran % (Auto) 1.000 H, Neut % (Auto) 73.1 H, Lymph % (Auto) 7.7 L, Imperial % (Auto) 14.0 H, Eos % (Auto) 3.6, Baso % (Auto) 0.6, Absolute Neuts (auto) 3.6, Absolute Lymphs (auto) 0.38 L, Nucleated RBC % 0, Differential Comment SCANNED 09/05/23 01:02: POC Glucose 160 H 09/05/23 04:25: Hemoglobin A1c 9.2 H, Triglycerides 250 H, Cholesterol 116, LDL Cholesterol 30, VLDL Cholesterol 50 H, HDL Cholesterol 36 L, PSA Screen 2.44 09/05/23 06:54: POC Glucose 163 H 09/05/23 11:34: POC Glucose 161 H Imagaing Radiology Impression Brain CT 09/04/23 20:14 IMPRESSION: 1. Extensive hypodensity in the right frontal lobe that may represent edema possibly from ischemia but there is a questionable hypodense mass present. There is no hemorrhage identified. Further evaluation with MRI is recommended. 2. Underlying senescent change with small vessel ischemia. Electronically Signed: Bipin Person MD at 20:52 EST Reading Location ID and State: [facility] / [place] Tel , Service support , Chest X-Ray 09/04/23 20:29 IMPRESSION: No radiographic evidence of acute cardiopulmonary disease. Electronically Signed: Bipin Person MD at 20:53 EST Reading Location ID and State: [facility] / [place] Tel , Service support , Head/Neck CTA 09/04/23 20:59 IMPRESSION: 1. Unremarkable CTA of the head and neck. All vessels are patent with no aneurysm or stenosis. 2. Peripherally enhancing mass in the right frontal lobe. Further evaluation with MRI may be beneficial. 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 1. A thick wall peripherally enhancing centrally necrotic mass is present in the most anterior superior aspect of the right frontal lobe measuring 2.38 x 2.08 cm in diameter and surrounded by significant vasogenic edema. Very minimal 1 to 2 mm of leftward midline shift is present. The vasogenic edema extends into the anterior aspect of the corpus callosum and the full anterior to posterior aspect of the frontal lobe. No additional metastatic lesions are seen in either of the cerebral hemispheres or in the posterior fossa. No demonstrated abnormal thickening or enhancement of meninges or dura on the current study. No visualized skull lesions. Electronically Signed: Donta Suarez MD at 11:48 EST , Active Medications Active Medications Active Medications: Current Medications Generic Name Dose Route Start Last Admin Trade Name Freq PRN Reason Stop Dose Admin Acetaminophen 650 mg 09/04/23 23:22 Acetaminophen 325 Mg Tablet PO Q6H PRN PRN Pain 1-5 Or Fever>100.7 Albuterol Sulfate 2.5 mg 09/04/23 23:22 Albuterol 2.5 Mg/3 Ml Vial.Neb. INHALATION Q2H PRN PRN Shortness of Breath/Wheezing Amlodipine Besylate 5 mg 09/05/23 10:00 09/05/23 12:11 Amlodipine 5 Mg Tablet PO 5 mg DAILY AMI Administration Protocol Atenolol 25 mg 09/05/23 10:00 09/05/23 12:11 Atenolol 25 Mg Tablet PO 25 mg DAILY AMI Administration Protocol Atorvastatin Calcium 80 mg 09/05/23 22:00 Atorvastatin Calcium 80 Mg Tablet PO QHS AMI Dextrose 0 gm 09/04/23 23:22 Dextrose 50%-Water 25 Gm/50 Ml Disp.Syrin IV X1 PRN HYPOGLYCEMIA Protocol Ergocalciferol 1.25 mg 09/09/23 10:00 Ergocalciferol 1.25 Mg (50, 000 Unit) Capsule PO Fletcher@1000 [facility] Fenofibrate 145 mg 09/05/23 10:00 09/05/23 12:12 Fenofibrate 145 Mg Tablet PO 145 mg DAILY AMI Administration Glucagon 1 mg 09/04/23 23:22 Glucagon 1 Mg/Ml Syringe IM X1 PRN HYPOGLYCEMIA Heparin Sodium (Porcine) 5,000 unit 09/05/23 10:00 09/05/23 12:23 Heparin Injection (Vial) 5,000 Unit/Ml Vial SC 5,000 unit Q12 AMI Administration Sodium Chloride 1,000 mls @ 100 mls/hr 09/04/23 23:25 09/05/23 12:11 IV Not Given .Q10H AMI Sodium Chloride 250 mls @ 15 mls/hr 09/05/23 00:56 IV .[id number] PRN Additional IVPB Infusion Sodium Chloride 250 mls @ 15 mls/hr 09/05/23 00:56 IV .[id number] PRN Saline Flush Insulin Glargine 24 unit 09/05/23 10:00 09/05/23 12:11 Insulin Glargine-Yfgn 100 Unit/Ml Pen SC 24 unit DAILY AMI Administration Insulin Human Lispro 0 unit 09/05/23 00:00 09/05/23 12:16 Insulin Lispro 100 Unit/Ml Insuln.Pen SC 1 u Q6 [facility] Administration Protocol Lisinopril 40 mg 09/05/23 10:00 09/05/23 12:12 Lisinopril 40 Mg Tablet PO 40 mg DAILY [facility] Administration Protocol Melatonin 3 mg 09/04/23 23:22 Melatonin 3 Mg Tablet PO QHS PRN PRN INSOMNIA Nitroglycerin 0.4 mg 09/04/23 23:22 Nitroglycerin (Inpatient Use) 0.4 Mg Tab.Subl SL Q5M PRN CARDIAC/CHEST PAIN Ondansetron HCl 4 mg 09/04/23 23:22 Ondansetron 4 Mg/2 Ml Vial IV Q8H PRN PRN NAUSEA/VOMITING Oxycodone HCl 5 mg 09/05/23 00:53 Oxycodone 5 Mg Tablet PO Q6H PRN PRN Pain Score 6-10 Pantoprazole Sodium 40 mg 09/05/23 10:00 09/05/23 12:12 Pantoprazole Sodium 40 Mg Tablet PO 40 mg DAILY AMI Administration Sodium Chloride 10 - 40 ml 09/05/23 00:56 09/05/23 06:57 0.9% Saline Lock 10 Ml Syringe IV 10 ml UD PRN Administration SALINE FLUSH Tolterodine Tartrate 2 mg 09/05/23 10:00 09/05/23 12:12 Tolterodine Tartrate 2 Mg Cap.Sa PO 2 mg DAILY AMI Administration
--- NOTE | 2023-09-05 14:19 | DS.PCM_ITS ---
Providers Date of Admission: 09/04/23 Date of Discharge: 09/05/23 Primary Care Physician: Dr. Maria Eugenia Garcia, DO Consultations 09/05/23 01:43 Tele [Consult: Tele-Neurology] Routine Consulting Provider: [facility] Reason for Consult: abnormal ct EMERGENT Consult: No MD Notified: Yes Date Notified: 09/05/23 Time Notified: 09:42 Method of Notification: Answering Service Nursing Unit Staff Notify [facility] of Tele-Neurology Consult: Yes Reason For Visit: SYNCOPE & NEW RIGHT FRONTAL BRAIN MASS WITH HX OF Diagnosis Discharge Diagnosis (1) Syncope and collapse: Status: Acute Code(s): R55 - Syncope and collapse (2) Brain mass: Status: Acute Code(s): G93.89 - Other specified disorders of brain (3) History of esophageal cancer: Status: Acute Code(s): Z85.01 - Personal history of malignant neoplasm of esophagus Plan Patient is an 82-year-old gentleman with past medical history significant for esophageal CA, prostate CA as well as bladder CA apparently found unresponsive and confused by the . CT of the head obtained on admission demonstrated Extensive hypodensity in the right frontal lobe that may represent edema possibly from ischemia but there is a questionable hypodense mass present. Currently admitted to monitored bed for further evaluation . Unresponsiveness ? Differential diagnosis includes syncopal episode versus seizure. CT of the head and neck obtained on admission did demonstrate Extensive hypodensity in the right frontal lobe that may represent edema possibly from ischemia but there is a questionable hypodense mass present. Admitted to monitored bed subsequent evaluation with MRI with and without contrast ordered consult placed to [facility] teleneurology ? 09/05/2023; patient's MRI demonstrated A thick wall peripherally enhancing centrally necrotic mass is present in the most anterior superior aspect of the right frontal lobe measuring 2.38 x 2.08 cm in diameter and surrounded by significant vasogenic edema. Very minimal 1 to 2 mm of leftward midline shift is present. The vasogenic edema extends into the anterior aspect of the corpus callosum and the full anterior to posterior aspect of the frontal lobe. Case was discussed with [facility] teleneurology as well as patient's oncologist Dr. Nick Hwang decision was made to transfer patient to [facility]. Patient was started on Decadron as well as Keppra prior to patient being transferred. Case was also discussed with the patient and the and both agreed with the plan of treatment 2. History of esophageal cancer ? Status post resection with subsequent chemo and radiation adjuvant therapy patient apparently in remission 3.History of bladder ? Status post resection 4. History of prostate CA ? Treated with radiation initially had a recurrence and subsequently underwent TURP 5. History of renal cell carcinoma 6. Hypertension - Blood pressure controlled, home medications continued with dose adjustment as needed 7. Diabetes mellitus type II -patient's oral hypoglycemics held. Placed on long acting insulin, Accu-Cheks a.c. and at bedtime and covered with sliding scale insulin 8. Dyslipidemia -Patient is on statin therapy, continued at home dose 10. Coronary artery disease ? With previous PCI patient is on guideline directed medical therapy 11. History of AAA ? Status post repair 12. DVT prophylaxis ? SC heparin Time spent in the patient's overall evaluation,decision-making process, review of diagnostic data, adjustment of management, discussion with other providers, nursing nursing and ancillary staff involved in patient's care documentation, 55 Medications at Discharge Home Medications amlodipine 5 mg tablet 5 mg PO DAILY 11/17/13 atenolol 25 mg tablet 25 mg PO DAILY 11/17/13 glimepiride 2 mg tablet 4 mg PO BID 11/17/13 lisinopril 40 mg tablet 40 mg PO DAILY 11/17/13 nitroglycerin 0.4 mg sublingual tablet 0.4 mg sublingual Q5M PRN Chest Pain 11/17/13 sildenafil 100 mg tablet (Viagra) 100 mg PO PRN PRN SEXUAL USE 11/17/13 ergocalciferol (vitamin D2) 1,250 mcg (50,000 unit) capsule 1 tab PO FLETCHER 05/02/19 fenofibrate 160 mg tablet 1 tab PO DAILY 05/02/19 dulaglutide 0.75 mg/0.5 mL subcutaneous pen injector (Trulicity) 0.75 mg subcut FLETCHER 09/09/21 pantoprazole 40 mg tablet,delayed release 40 mg PO DAILY 09/09/21 rosuvastatin 40 mg tablet 40 mg PO DAILY 09/09/21 dapagliflozin propanediol 10 mg tablet (Farxiga) 10 mg PO DAILY 03/19/23 insulin glargine U-300 conc 300 unit/mL (3 mL) subcutaneous pen (Toujeo Max U- 300 SoloStar) 44 unit subcut DAILY 03/19/23 oxybutynin chloride 10 mg tablet,extended release 24 hr 10 mg PO DAILY #90 tabs 03/28/23 furosemide 20 mg tablet (Lasix) 20 mg PO DAILY 09/04/23 insulin degludec 200 unit/mL (3 mL) subcutaneous pen (Tresiba FlexTouch U-200 insulin) 26 unit subcut DAILY 09/04/23 Hospital Course Summary of Care Provided Minutes Spent on Discharge: 55 Physical Exam Narrative GENERAL: cooperative HEENT: Atraumatic; normocephalic EYES; Anicteric, Normal Conjunctiva NECK; supple, normal thyroid, RESPIRATORY: Diminished to auscultation CARDIOVASCULAR: Regular S1 S2, GI: soft, normoactive bowel sounds, : No Renal angle tenderness; EXTREMITIES: No edema, no clubbing, MUSCULOSKELETAL: no muscle wasting NEURO: Awake; no lateralizing signs. SKIN: No Rash PSYCH; Flat affect Weight / BMI Weight Weight: 67.6 kg Body Mass Index (BMI) 23.3 ABG / Lab / Microbiology Data 09/04/23 21:28 09/04/23 19:35 Laboratory: Laboratory Results - last 24 hr 09/04/23 19:35: Sodium 135 L, Potassium 3.9, Chloride 103, Carbon Dioxide 21.0, Anion Gap 11, BUN 21 H, Creatinine 1.45 H, Estim Creat Clear Calc 39.31, Est GFR (MDRD) Af Amer 60, Est GFR (MDRD) Non-Af 50 L, BUN/Creatinine Ratio 14.5, Glucose 227 H, Calcium 9.1, Total Bilirubin 0.40, AST 45 H, ALT 33, Alkaline Phosphatase 164 H, Troponin I High Sens 18, B-Natriuretic Peptide 181.5 H, Total Protein 7.4, Albumin 3.6, Globulin 3.8, Albumin/Globulin Ratio 0.9, Ethyl Alcohol < 3.0 09/04/23 20:45: Urine Color Yellow, Urine Clarity Clear, Urine pH 7.0, Ur Specific [place] 1.010, Urine Protein 30 H, Urine Glucose (UA) 1000 H, Urine Ketones Negative, Urine Occult Blood 50 H, Urine Nitrite Negative, Urine Bilirubin Negative, Urine Urobilinogen Normal, Ur Leukocyte Esterase Negative, Urine RBC 0 SEEN, Urine WBC 0-5 SEEN, Ur Squamous Epith Cells 0 SEEN, Urine Bacteria 0 SEEN, Urine Mucus 0 SEEN, Urine Opiates Screen NEGATIVE, Urine Methadone Screen NEGATIVE, Ur Barbiturates Screen NEGATIVE, Ur Phencyclidine Scrn NEGATIVE, Ur Amphetamines Screen NEGATIVE, MDMA (Ecstasy) Screen NEGATIVE, U Benzodiazepines Scrn NEGATIVE, Urine Cocaine Screen NEGATIVE, U Cannabinoids Screen POSITIVE H, Ur Drug Screen Comment 09/04/23 21:28: WBC 4.9, RBC 3.46 L, Hgb 9.4 L, Hct 29.5 L, MCV 85.3, MCH 27.2, MCHC 31.9 L, RDW Std Deviation 47.7 H, RDW Coeff of Jeanette 15.3 H, Plt Count 150, MPV 9.1, Immature Gran % (Auto) 1.000 H, Neut % (Auto) 73.1 H, Lymph % (Auto) 7.7 L, [place] % (Auto) 14.0 H, Eos % (Auto) 3.6, Baso % (Auto) 0.6, Absolute Neuts (auto) 3.6, Absolute Lymphs (auto) 0.38 L, Nucleated RBC % 0, Differential Comment SCANNED 09/05/23 01:02: POC Glucose 160 H 09/05/23 04:25: Hemoglobin A1c 9.2 H, Triglycerides 250 H, Cholesterol 116, LDL Cholesterol 30, VLDL Cholesterol 50 H, HDL Cholesterol 36 L, PSA Screen 2.44 09/05/23 06:54: POC Glucose 163 H 09/05/23 11:34: POC Glucose 161 H Radiography Diagnostic Testing: Radiology Impression Brain CT 09/04/23 20:14 IMPRESSION: 1. Extensive hypodensity in the right frontal lobe that may represent edema possibly from ischemia but there is a questionable hypodense mass present. There is no hemorrhage identified. Further evaluation with MRI is recommended. 2. Underlying senescent change with small vessel ischemia. Electronically Signed: Bipin Person MD at 20:52 EST , Chest X-Ray 09/04/23 20:29 IMPRESSION: No radiographic evidence of acute cardiopulmonary disease. Electronically Signed: Bipin Person MD at 20:53 EST , Head/Neck CTA 09/04/23 20:59 IMPRESSION: 1. Unremarkable CTA of the head and neck. All vessels are patent with no aneurysm or stenosis. 2. Peripherally enhancing mass in the right frontal lobe. Further evaluation with MRI may be beneficial. 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 1. A thick wall peripherally enhancing centrally necrotic mass is present in the most anterior superior aspect of the right frontal lobe measuring 2.38 x 2.08 cm in diameter and surrounded by significant vasogenic edema. Very minimal 1 to 2 mm of leftward midline shift is present. The vasogenic edema extends into the anterior aspect of the corpus callosum and the full anterior to posterior aspect of the frontal lobe. No additional metastatic lesions are seen in either of the cerebral hemispheres or in the posterior fossa. No demonstrated abnormal thickening or enhancement of meninges or dura on the current study. No visualized skull lesions. Electronically Signed: Donta Suarez MD at 11:48 EST , Echocardiogram 09/05/23 00:53 Interpretation Summary Mild concentric left ventricular hypertrophy. The left ventricular ejection fraction is 65 %. Diastolic function is indeterminate. Redundant mitral valve cords with mild systolic anterior motion but no gradient across the LVOT. Aortic sclerosis, no stenosis. Ordering Physician: Gilberto Lui Performed By: Miah Luevano RCS D/C Instructions Discharge Diet: 1800 Calorie Control Diet Discharge Activity: Return to Normal Activity Call your doctor if you observe: Fever of 101 or Higher, Shortness of breath, Fainting spells and Chest pain Meaningful Use Info Meaningful Use Diagnoses (Choose all that apply): None applicable Discharge Plan Admission Admit Date/Time: 09/04/23 23:16 Attending Provider: Gilberto Kelly Primary Care Provider: Maria Eugenia Garcia Consulting Providers: Gilberto Lui; James Guo; Janina Lin; Libia Thomas; Marisela Nina; Kareen Glaser; Vicente Amor; Diamond Márquez; Tray Pena; Peewee Ramos; Anny Tobin; Juan Daniels; Amanda Webster; Ty Peterson; Mary Pedroza; Chris Thomas; Victor Hugo Mcmahon; Todd Mendez; Diane Grimes; Richard Jara Discharge Orders/Prescriptions Prescriptions: No Action atenolol 25 MG tablet 25 mg PO DAILY amlodipine 5 MG tablet 5 mg PO DAILY sildenafil [Viagra] 100 MG tablet 100 mg PO PRN PRN (Reason: SEXUAL USE) glimepiride 2 MG tablet 4 mg PO BID nitroglycerin 0.4 MG tablet 0.4 mg sublingual Q5M PRN (Reason: Chest Pain) lisinopril 40 MG tablet 40 mg PO DAILY ergocalciferol (vitamin D2) 50,000 U capsule 1 tab PO FLETCHER fenofibrate 160 MG tablet 1 tab PO DAILY pantoprazole 40 mg tablet,delayed release (DR/EC) 40 mg PO DAILY rosuvastatin 40 mg tablet 40 mg PO DAILY Trulicity 0.75 mg/0.5 mL Pen Injector 0.75 mg SUBCUT FLETCHER Farxiga 10 mg Tablet 10 mg PO DAILY Toujeo Max U-300 SoloStar 300 unit/mL (3 mL) Insulin Pen 44 unit SUBCUT DAILY oxybutynin chloride 10 mg tablet extended release 24hr 10 mg PO DAILY Qty: 90 3RF furosemide [Lasix] 20 mg tablet 20 mg PO DAILY insulin degludec [Tresiba FlexTouch U-200] 200 unit/mL (3 mL) insulin pen 26 unit SUBCUT DAILY Patient Comments: inject 26 units subcutaneously once daily Referrals / Follow Up: Maria Eugenia Garcia DO [Primary Care Provider] - Within 2 Weeks Disposition Disposition (needs filled in before D/C Order can be placed): [facility] Charges/Coding Visit Charges Inpatient E&M: 18836 Disch Hosp >30min
--- NOTE | 2023-09-05 14:28 | CHAPLAIN ---
Type of Pastoral Visit _x__ Initial Visit ___ Follow-up Visit ___ On-call Visit ___ General Patient Visit ___ Spiritual Assessment ___ Family Conference ___ Bereavement ___ Rapid Response ___ Code Blue ___ Other (describe below) Pastoral Care Referral From _x__ Patient _x__ Family ___ Nurse ___ Physician ___ Outside Sales Professional ___ Electric Truck Driver ___ Other (describe below) Sacrament/Intervention _x__ Active listening ___ Anointing ___ Zoroastrianism ___ Bereavement ___ Communion ___ Susu exploration ___ ___ Life review _x__ Prayer ___ Reconciliation ___ Sacrament of Sick _x__ Supportive presence ___ Wedding ___ Other (describe below) Pastoral Comments patient and spouse are in the room and 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
[2023-09-05 14:50] LABS: Absolute Lymphocyte Count 0.64 X10^3/uL (0.83-4.51); Absolute Neutrophil Count 3.3 X10^3/uL (2.0-7.7); Basophil# 0.06 X10^3/uL; Basophil% 1.2 % (0-1); Eosinophil# 0.24 X10^3/uL; Eosinophils% 4.7 % (0-5); Hematocrit 30.2 % (40-54); Hemoglobin 9.2 g/dL (13.0-16.5); Lymphocyte # 0.64 X10^3/ul (0.83-4.51); Lymphocyte % 12.5 % (19-41); Mean Corp Hgb Conc 30.5 g/dL (32-36); Mean Corpuscular Hgb 26.4 pg (27.0-32.0); Mean Corpuscular Volume 86.5 fL (80-94); Monocyte# 0.82 X10^3/uL; NRBC Flagged by Analyzer 0 % (0-5); Neutrophil # 3.31 X10^3/uL (2.7-7.7); Neutrophil % 64.8 % (47-70); Platelet Count 160 K/mm3 (150-450); RBC Distribution Width CV 15.8 % (11.6-14.6); RBC Distribution Width SD 49.3 fl (35.1-43.9); Red Blood Count 3.49 M/mm3 (4.6-6.2); White Blood Count 5.1 K/mm3 (4.4-11.0)
[2023-09-05 15:18] LABS: AST(SGOT) 40 U/L (15-37); Alanine Aminotransfer ALT/SGPT 28 U/L (16-61); Albumin, Serum 3.1 g/dL (3.2-5.0); Alkaline Phosphatase 146 U/L (45-117); Anion Gap 6 (5-15); BUN 19 mg/dL (7-18); BUN/Creat Ratio 15.6 RATIO (10-20); Calcium,Total 8.6 mg/dL (8.5-10.1); Chloride 108 mmol/L (98-107); Creatinine, Serum 1.22 mg/dL (0.70-1.30); EST Glomerular Filtration Rate 61 mL/min (>60); Est Glom Filt Rate - Afr Amer 73 mL/min (>60); Estimated Creatinine Clearance 45.15 ml/min; Globulin 3.2 g/dL (2.2-4.2); Glucose 170 mg/dL (74-106); Phosphorus 2.9 mg/dL (2.5-4.9); Potassium 3.8 mmol/L (3.5-5.1); Protein, Total 6.3 g/dL (6.4-8.2); Sodium Level 139 mmol/L (136-145)
[2023-09-05 17:06] LABS: Bedside Glucose 295 mg/dL (74-106)
--- NOTE | 2023-09-05 17:42 | NURSING ---
Portia picked up envelope with gordon from security office today at 2 pm. Officer Dane present and verified correct paperwork for release.
[2023-09-05] MEDS: Atorvastatin Calcium 80 MG Tablet PO (22:19)
[2023-09-05] MEDS: levETIRAcetam 500 MG Tablet PO (22:19)
[2023-09-05 23:30] LABS: Bedside Glucose 167 mg/dL (74-106)
[2023-09-06] MEDS: 0.9% Normal Saline (1000mL) 1,000 ML 100 ML IV ×3 (02:43→22:22)
[2023-09-06 03:17] VITALS: BMI 23.3
[2023-09-06 04:04] LABS: Absolute Lymphocyte Count 0.64 X10^3/uL (0.83-4.51); Absolute Neutrophil Count 2.8 X10^3/uL (2.0-7.7); Basophil# 0.02 X10^3/uL; Basophil% 0.5 % (0-1); Eosinophil# 0.09 X10^3/uL; Eosinophils% 2.2 % (0-5); Hematocrit 27.7 % (40-54); Hemoglobin 8.6 g/dL (13.0-16.5); Lymphocyte # 0.64 X10^3/ul (0.83-4.51); Lymphocyte % 15.9 % (19-41); Mean Corpuscular Hgb 26.7 pg (27.0-32.0); Mean Platelet Vol. 9.7 fl (6.2-12.0); Monocyte# 0.44 X10^3/uL; Monocyte% 10.9 % (0-10); NRBC Flagged by Analyzer 0 % (0-5); Neutrophil # 2.78 X10^3/uL (2.7-7.7); Neutrophil % 69.3 % (47-70); Platelet Count 143 K/mm3 (150-450); RBC Distribution Width CV 15.4 % (11.6-14.6); RBC Distribution Width SD 48.8 fl (35.1-43.9); Red Blood Count 3.22 M/mm3 (4.6-6.2)
[2023-09-06 04:21] LABS: Anion Gap 5 (5-15); BUN 15 mg/dL (7-18); BUN/Creat Ratio 13.9 RATIO (10-20); Calcium,Total 7.8 mg/dL (8.5-10.1); Chloride 111 mmol/L (98-107); Creatinine, Serum 1.08 mg/dL (0.70-1.30); EST Glomerular Filtration Rate 70 mL/min (>60); Est Glom Filt Rate - Afr Amer 84 mL/min (>60); Glucose 182 mg/dL (74-106); Magnesium 1.9 mg/dL (1.6-2.6); Phosphorus 2.7 mg/dL (2.5-4.9); Potassium 3.8 mmol/L (3.5-5.1); Sodium Level 138 mmol/L (136-145)
[2023-09-06 04:47] VITALS: BP 114/55; PULSE 75; RESP 16; TEMP 36.3; O2SAT 96
[2023-09-06] MEDS: Insulin Lispro 100 UNIT/ML INSULN.PEN SC ×4 (06:04→22:22)
[2023-09-06 06:23] LABS: Bedside Glucose 160 mg/dL (74-106)
--- NOTE | 2023-09-06 09:24 | CASEMGMT ---
Met with patient to complete ROMERO form. ROMERO form explained to patient who voiced understanding and signed form. Original form placed in pt?s chart and copy provided to?patient. Sania Cotton, Discharge Planning Asst
--- NOTE | 2023-09-06 09:34 | PCM.PN.HOSP ---
Reason for Visit Reason for Visit: Diagnoses Other specified disorders of brain (09/04/23) Syncope and collapse (09/04/23) Personal history of malignant neoplasm of esophagus (09/04/23) Subjective Subjective Call was placed to [facility] patient has been accepted for transfer awaiting bed availability Objective Data Objective Data Vital Signs: Vital Signs Temp Pulse Resp BP Pulse Ox O2 Del Method 97.4 F L 75 16 114/55 L 96 Room Air 09/06/23 04:47 09/06/23 04:47 09/06/23 04:47 09/06/23 04:47 09/06/23 04:47 09/06/23 04:51 Oxygen Delivery Method Room Air Weight: 67.7 kg Body Mass Index (BMI) 23.3 Intake & Output: Intake and Output for Last 24 Hours 09/04/23 09/05/23 09/06/23 23:59 23:59 23:59 Intake Total 2373.75 / 2373.75 983.33 / 983.33 Output Total 1750 / 2750 1300 / 1300 Balance 623.75 / -376.25 -316.67 / -316.67 Lab / Micro Data 09/06/23 03:50 09/06/23 03:50 Labs: Laboratory Results - last 24 hr 09/05/23 04:25: WBC 5.1, RBC 3.49 L, Hgb 9.2 L, Hct 30.2 L, MCV 86.5, MCH 26.4 L, MCHC 30.5 L, RDW Std Deviation 49.3 H, RDW Coeff of Jeanette 15.8 H, Plt Count 160, MPV 10.0, Immature Gran % (Auto) 0.800, Neut % (Auto) 64.8, Lymph % (Auto) 12.5 L, [place] % (Auto) 16.0 H, Eos % (Auto) 4.7, Baso % (Auto) 1.2 H, Absolute Neuts (auto) 3.3, Absolute Lymphs (auto) 0.64 L, Nucleated RBC % 0, Sodium 139, Potassium 3.8, Chloride 108 H, Carbon Dioxide 25.0, Anion Gap 6, BUN 19 H, Creatinine 1.22, Estim Creat Clear Calc 45.15, Est GFR (MDRD) Af Amer 73, Est GFR (MDRD) Non-Af 61, BUN/Creatinine Ratio 15.6, Glucose 170 H, Calcium 8.6, Phosphorus 2.9, Magnesium 2.0, Total Bilirubin 0.70, AST 40 H, ALT 28, Alkaline Phosphatase 146 H, Total Protein 6.3 L, Albumin 3.1 L, Globulin 3.2, Albumin/Globulin Ratio 1.0, TSH 1.70 09/05/23 11:34: POC Glucose 161 H 09/05/23 16:42: POC Glucose 295 H 09/05/23 23:09: POC Glucose 167 H 09/06/23 03:50: WBC 4.0 L, RBC 3.22 L, Hgb 8.6 L, Hct 27.7 L, MCV 86.0, MCH 26.7 L, MCHC 31.0 L, RDW Std Deviation 48.8 H, RDW Coeff of Jeanette 15.4 H, Plt Count 143 L, MPV 9.7, Immature Gran % (Auto) 1.200 H, Neut % (Auto) 69.3, Lymph % (Auto) 15.9 L, [place] % (Auto) 10.9 H, Eos % (Auto) 2.2, Baso % (Auto) 0.5, Absolute Neuts (auto) 2.8, Absolute Lymphs (auto) 0.64 L, Nucleated RBC % 0, Sodium 138, Potassium 3.8, Chloride 111 H, Carbon Dioxide 22.0, Anion Gap 5, BUN 15, Creatinine 1.08, Estim Creat Clear Calc 51.00, Est GFR (MDRD) Af Amer 84, Est GFR (MDRD) Non-Af 70, BUN/Creatinine Ratio 13.9, Glucose 182 H, Calcium 7.8 L, Phosphorus 2.7, Magnesium 1.9 09/06/23 06:02: POC Glucose 160 H Radiography Diagnostic Testing: Radiology Impression Brain MRI 09/05/23 00:53 IMPRESSION: Malignant mass of the right frontal lobe. 1. A thick wall peripherally enhancing centrally necrotic mass is present in the most anterior superior aspect of the right frontal lobe measuring 2.38 x 2.08 cm in diameter and surrounded by significant vasogenic edema. Very minimal 1 to 2 mm of leftward midline shift is present. The vasogenic edema extends into the anterior aspect of the corpus callosum and the full anterior to posterior aspect of the frontal lobe. No additional metastatic lesions are seen in either of the cerebral hemispheres or in the posterior fossa. No demonstrated abnormal thickening or enhancement of meninges or dura on the current study. No visualized skull lesions. Electronically Signed: Donta Suarez MD at 11:48 EST , Carotid Duplex 09/05/23 00:53 Interpretation Summary Mild (<50%) stenosis right extracranial internal carotid. Mild (<50%) stenosis left extracranial internal carotid. Patent and antegrade vertebrals bilaterally. Ordering Physician: Gilberto Lui Referring Physician: Maria Eugenia Garcia Performed By: Gianna Belle RVT Echocardiogram 09/05/23 00:53 Interpretation Summary Mild concentric left ventricular hypertrophy. The left ventricular ejection fraction is 65 %. Diastolic function is indeterminate. Redundant mitral valve cords with mild systolic anterior motion but no gradient across the LVOT. Aortic sclerosis, no stenosis. Ordering Physician: Gilberto Lui Performed By: Miah Luevano RCS Physical Exam Narrative GENERAL: cooperative HEENT: Atraumatic; normocephalic EYES; Anicteric, Normal Conjunctiva NECK; supple, normal thyroid, RESPIRATORY: Diminished to auscultation CARDIOVASCULAR: Regular S1 S2, GI: soft, normoactive bowel sounds, : No Renal angle tenderness; EXTREMITIES: No edema, no clubbing, MUSCULOSKELETAL: no muscle wasting NEURO: Awake; no lateralizing signs. SKIN: No Rash PSYCH; Flat affect Const alert, oriented x3, no apparent distress, average body habitus, healthy appearing and well nourished General Appearance: cooperative HEENT normocephalic, head/scalp atraumatic, hearing grossly normal bilaterally, moist oral mucous membranes and oropharynx normal Eyes PERRL, EOMs intact bilaterally and conjunctivae normal Neck no lymphadenopathy and supple Resp normal respiratory effort, no retractions, no use of accessory muscles and clear to auscultation bilaterally Cardio regular rate and regular rhythm GI normal to inspection, nondistended, normoactive bowel sounds, soft to palpation, non-tender and non-distended Extremity normal to inspection, full ROM and no clubbing, cyanosis or edema Neuro oriented x3, CN's II-XII intact bilaterally, moves all extremities and no focal motor deficits Sensorium / Orientation: awake, alert, oriented to person, oriented to place and oriented to time Speech: speech normal Motor Exam: strength 5/5 throughout Psych affect normal Assessment & Plan Assessment/Plan (1) Syncope and collapse: (2) Brain mass: (3) History of esophageal cancer: PLAN: Plan Patient is an 82-year-old gentleman with past medical history significant for esophageal CA, prostate CA as well as bladder CA apparently found unresponsive and confused by the . CT of the head obtained on admission demonstrated Extensive hypodensity in the right frontal lobe that may represent edema possibly from ischemia but there is a questionable hypodense mass present. Currently admitted to monitored bed for further evaluation . Unresponsiveness ? Differential diagnosis includes syncopal episode versus seizure. CT of the head and neck obtained on admission did demonstrate Extensive hypodensity in the right frontal lobe that may represent edema possibly from ischemia but there is a questionable hypodense mass present. Admitted to monitored bed subsequent evaluation with MRI with and without contrast ordered consult placed to [facility] teleneurology ? 09/05/2023; patient's MRI demonstrated A thick wall peripherally enhancing centrally necrotic mass is present in the most anterior superior aspect of the right frontal lobe measuring 2.38 x 2.08 cm in diameter and surrounded by significant vasogenic edema. Very minimal 1 to 2 mm of leftward midline shift is present. The vasogenic edema extends into the anterior aspect of the corpus callosum and the full anterior to posterior aspect of the frontal lobe. Case was discussed with [facility] teleneurology as well as patient's oncologist Dr. Nick Hwang decision was made to transfer patient to [facility]. Patient was started on Decadron as well as Keppra prior to patient being transferred. Case was also discussed with the patient and the and both agreed with the plan of treatment 2. History of esophageal cancer ? Status post resection with subsequent chemo and radiation adjuvant therapy patient apparently in remission 3.History of bladder ? Status post resection 4. History of prostate CA ? Treated with radiation initially had a recurrence and subsequently underwent TURP 5. History of renal cell carcinoma 6. Hypertension - Blood pressure controlled, home medications continued with dose adjustment as needed 7. Diabetes mellitus type II -patient's oral hypoglycemics held. Placed on long acting insulin, Accu-Cheks a.c. and at bedtime and covered with sliding scale insulin 8. Dyslipidemia -Patient is on statin therapy, continued at home dose 10. Coronary artery disease ? With previous PCI patient is on guideline directed medical therapy 11. History of AAA ? Status post repair 12. DVT prophylaxis ? SC heparin Time spent in the patient's overall evaluation,decision-making process, review of diagnostic data, adjustment of management, discussion with other providers, nursing nursing and ancillary staff involved in patient's care documentation, 35 Charges/Coding Visit Charges Inpatient E&M: 93915 Subs Hosp L2
[2023-09-06] MEDS: Tolterodine Tartrate 2 MG CAP.SA PO (10:21)
[2023-09-06] MEDS: Heparin Injection (Vial) 5,000 UNIT/ML VIAL 5000 UNIT SC ×2 (10:21→20:59)
[2023-09-06] MEDS: Fenofibrate 145 MG Tablet PO (10:22)
[2023-09-06] MEDS: Pantoprazole Sodium 40 MG Tablet PO (10:22)
[2023-09-06] MEDS: amLODIPine 5 MG Tablet PO (10:22)
[2023-09-06] MEDS: levETIRAcetam 500 MG Tablet PO ×2 (10:22→20:59)
[2023-09-06] MEDS: Lisinopril 40 MG Tablet PO (10:23)
[2023-09-06] MEDS: Atenolol 25 MG Tablet PO (10:23)
[2023-09-06] MEDS: Insulin Glargine-YFGN 100 UNIT/ML Pen 24 UNIT SC (10:27)
[2023-09-06 10:45] VITALS: BP 110/60; PULSE 81; RESP 16; TEMP 36.3; O2SAT 97
--- NOTE | 2023-09-06 10:53 | NEURO.PNOTE ---
Assessment and Plan: Neuro Assessment/Plan JEANNA ALONZO is a 82 M with a past medical history of esophageal cancer, prostate cancer both in remission, being evaluated by Teleneurology for new mass in the R frontal lobe with signficant edema and syncope. History and exam are benign for focal deficits or progressive symptoms. Ddx for syncope includes possible seizure from the the R frontal mass although history is unclear, orthostatic syncope (orthostatic vitals relatively without sigfniciant change), cardiogenic (TTE wnl), cerebrovascular (no stroke on MRI in addition to the mass, CTA is relatively clear except a non-occlusive soft plaque of the LESLEE). At this time unclear etiology but will assume likely related to new R frontal mass. Currently ddx for the mass is new metastatic lesion vs infection vs autoimmune disease etc. The mass itself has a sigfniciant amount of vasogenic edema and therefore would not consider stroke in ddx. Re new mass lesion, pt has had routine regular checkups and is in remission. Unclear what type of cancer he had (adenocarcinoma vs squamous cell) but there are low metastatic rates to the brain. Unlikely infection given relatively benign infection history but cannot rule out. Unclear why there would be a new granulomatous or autoimmune related disease given he is not on active chemo but pt does not remember which agents he was on previously either Plan: - continue Keppra 500mg BID - recommended by [facility] to start steroids, if pt condition deteriorates or developes fever, worsening AMS on steroids, consider stopping and reimaging - waiting on transfer, but can start some workup, recommend the following: - serum labs: HIV, RPR, serum cryptococcal antigen, histoplasma antigen, toxoplasmosis igg - CT chest/abdomen/pelvis w/wo con with indication to assess for metastatic disease - if hospitalized for prolonged period of time, CIWA monitoring and consider librium taper (rather than PRN ativan which can impede evaluation of mental state) to prevent withdrawal I personally attended this patient and spent a total time of 30 minutes evaluating this patient including clinical assessment, review of chart, medical history imaging, and determining appropriate treatment and workup. Subject: Neurology Subjective 09/06 - pt overall stable, no N/V or dizziness while on Keppra. No events overnight. Discussed with and she has noticed possibly some small changes in behavior over the last month but nothing profound. No night time events concerning for seizure NIHSS NIHSS Nursing Documentation NIHSS Nursing Documentation: NIHSS: Ischemic Stroke/TIA Start: 09/05/23 13:38 Freq: Status: Active Protocol: Activity Type Activity Date Activity User E-sign Co-sign Detail Recorded Client Recorded Date Recorded By Document 09/05/23 13:39 [facility] Desktop 09/05/23 13:39 [facility] 09/05/23 13:39 NIH Stroke Scale [NIHSS] A score of 0 is normal or asymptomatic . Total possible score is 42. Inpatient: RN or Physician to activate a stroke alert for onset of new stroke symptoms or with NIHSS increase >/= 3 points. Following change in neurological status, NIHSS will be performed per physician order or more frequently PRN. -1a. Level of Consciousness Alert; keenly responsive -1b. LOC Questions Answers BOTH questions correctly. -1c. LOC Commands Performs both tasks correctly . -2. Best Gaze Normal -3. Visual No visual loss -4. Facial Palsy Normal symmetrical movements -5a. Left Arm No drift; arm holds 90 (or 45 ) degrees for full 10 seconds -5b. Right Arm No drift; arm holds 90 (or 45 ) degrees for full 10 seconds -6a. Left Leg No drift; leg holds 30-degree position for full 5 seconds -6b. Right Leg No drift; leg holds 30-degree position for full 5 seconds -7. Limb Ataxia Absent -8. Sensory Normal; no sensory loss -9. Best Language No aphasia; normal -10. Dysarthria Normal -11. Extinction and Inattention No abnormality -Total 0 Query Text:A score of 0 is normal or asymptomatic. Total possible score is 42 . ED: Notify Physician for NIHSS increase by > / = 3 points. Inpatient: RN or Physician to activate a stroke alert for NIHSS increase of > / = 3 points. Objective Data Objective Data Vital Signs: Vital Signs Temp Pulse Resp BP Pulse Ox O2 Del Method 97.4 F L 75 16 114/55 L 96 Room Air 09/06/23 04:47 09/06/23 04:47 09/06/23 04:47 09/06/23 04:47 09/06/23 04:47 09/06/23 04:51 Oxygen Delivery Method Room Air Weight: 67.7 kg Body Mass Index (BMI) 23.3 Intake & Output: Intake and Output for Last 24 Hours 09/04/23 09/05/23 09/06/23 23:59 23:59 23:59 Intake Total 2373.75 / 2373.75 983.33 / 983.33 Output Total 1750 / 2750 1300 / 1300 Balance 623.75 / -376.25 -316.67 / -316.67 Lab / Micro Data 09/06/23 03:50 09/06/23 03:50 Labs: Laboratory Results - last 24 hr 09/05/23 04:25: WBC 5.1, RBC 3.49 L, Hgb 9.2 L, Hct 30.2 L, MCV 86.5, MCH 26.4 L, MCHC 30.5 L, RDW Std Deviation 49.3 H, RDW Coeff of Jeanette 15.8 H, Plt Count 160, MPV 10.0, Immature Gran % (Auto) 0.800, Neut % (Auto) 64.8, Lymph % (Auto) 12.5 L, [place] % (Auto) 16.0 H, Eos % (Auto) 4.7, Baso % (Auto) 1.2 H, Absolute Neuts (auto) 3.3, Absolute Lymphs (auto) 0.64 L, Nucleated RBC % 0, Sodium 139, Potassium 3.8, Chloride 108 H, Carbon Dioxide 25.0, Anion Gap 6, BUN 19 H, Creatinine 1.22, Estim Creat Clear Calc 45.15, Est GFR (MDRD) Af Amer 73, Est GFR (MDRD) Non-Af 61, BUN/Creatinine Ratio 15.6, Glucose 170 H, Calcium 8.6, Phosphorus 2.9, Magnesium 2.0, Total Bilirubin 0.70, AST 40 H, ALT 28, Alkaline Phosphatase 146 H, Total Protein 6.3 L, Albumin 3.1 L, Globulin 3.2, Albumin/Globulin Ratio 1.0, TSH 1.70 09/05/23 11:34: POC Glucose 161 H 09/05/23 16:42: POC Glucose 295 H 09/05/23 23:09: POC Glucose 167 H 09/06/23 03:50: WBC 4.0 L, RBC 3.22 L, Hgb 8.6 L, Hct 27.7 L, MCV 86.0, MCH 26.7 L, MCHC 31.0 L, RDW Std Deviation 48.8 H, RDW Coeff of Jeanette 15.4 H, Plt Count 143 L, MPV 9.7, Immature Gran % (Auto) 1.200 H, Neut % (Auto) 69.3, Lymph % (Auto) 15.9 L, [place] % (Auto) 10.9 H, Eos % (Auto) 2.2, Baso % (Auto) 0.5, Absolute Neuts (auto) 2.8, Absolute Lymphs (auto) 0.64 L, Nucleated RBC % 0, Sodium 138, Potassium 3.8, Chloride 111 H, Carbon Dioxide 22.0, Anion Gap 5, BUN 15, Creatinine 1.08, Estim Creat Clear Calc 51.00, Est GFR (MDRD) Af Amer 84, Est GFR (MDRD) Non-Af 70, BUN/Creatinine Ratio 13.9, Glucose 182 H, Calcium 7.8 L, Phosphorus 2.7, Magnesium 1.9 09/06/23 06:02: POC Glucose 160 H Radiography Diagnostic Testing: Radiology Impression Brain MRI 09/05/23 00:53 IMPRESSION: Malignant mass of the right frontal lobe. 1. A thick wall peripherally enhancing centrally necrotic mass is present in the most anterior superior aspect of the right frontal lobe measuring 2.38 x 2.08 cm in diameter and surrounded by significant vasogenic edema. Very minimal 1 to 2 mm of leftward midline shift is present. The vasogenic edema extends into the anterior aspect of the corpus callosum and the full anterior to posterior aspect of the frontal lobe. No additional metastatic lesions are seen in either of the cerebral hemispheres or in the posterior fossa. No demonstrated abnormal thickening or enhancement of meninges or dura on the current study. No visualized skull lesions. Electronically Signed: Donta Suarez MD at 11:48 EST Reading Location ID and State: [facility] / [place] , Service support , Carotid Duplex 09/05/23 00:53 Interpretation Summary Mild (<50%) stenosis right extracranial internal carotid. Mild (<50%) stenosis left extracranial internal carotid. Patent and antegrade vertebrals bilaterally. Ordering Physician: Gilberto Lui Referring Physician: Maria Eugenia Garcia Performed By: Gianna Belle RVT Echocardiogram 09/05/23 00:53 Interpretation Summary Mild concentric left ventricular hypertrophy. The left ventricular ejection fraction is 65 %. Diastolic function is indeterminate. Redundant mitral valve cords with mild systolic anterior motion but no gradient across the LVOT. Aortic sclerosis, no stenosis. Ordering Physician: Gilberto Lui Performed By: Miah Luevano RCS Physical Exam Narrative Physical Exam Narrative -? General: Laying comfortably in bed; in no acute distress. -? HENT: Normal oropharynx and mucosa. Normal external appearance of ears and nose. Exophthalmos. -? Neck: Supple, no pain or tenderness -? CV:? No peripheral edema. -? Pulmonary:? Normal respiratory effort. -? Ext: No cyanosis, edema, or deformity -? Skin: No rash. Normal palpation of skin.? -? Musculoskeletal: full range of motion; no joint tenderness. Normal digits and nails by inspection. No clubbing. -? NEURO: -? Mental Status: The patient was alert and oriented to time, place, and person. Normal recent/remote memory, concentration, and general fund of knowledge. -? Language: speech is clear.? Naming, repetition, fluency, and comprehension intact. -? Cranial Nerves: pupils 3mm and reactive briskly b/l EOMI, visual nielson full, no facial asymmetric -? Motor: normal bulk, tone, and strength throughout. No pronator drift or satelliting. Upper and lower extremities equal bilaterally. -? Coordination: No dysmetria on [id number], finger follow finger or [id number]. Const alert, oriented x3, no apparent distress, average body habitus, healthy appearing and well nourished General Appearance: cooperative HEENT normocephalic, head/scalp atraumatic, hearing grossly normal bilaterally, moist oral mucous membranes and oropharynx normal Eyes PERRL, EOMs intact bilaterally and conjunctivae normal Neck no lymphadenopathy and supple Resp normal respiratory effort, no retractions, no use of accessory muscles and clear to auscultation bilaterally Cardio regular rate and regular rhythm GI normal to inspection, nondistended, normoactive bowel sounds, soft to palpation, non-tender and non-distended Extremity normal to inspection, full ROM and no clubbing, cyanosis or edema Neuro oriented x3, CN's II-XII intact bilaterally, moves all extremities and no focal motor deficits Sensorium / Orientation: awake, alert, oriented to person, oriented to place and oriented to time Speech: speech normal Motor Exam: strength 5/5 throughout Psych affect normal
[2023-09-06 13:08] LABS: Bedside Glucose 236 mg/dL (74-106)
--- NOTE | 2023-09-06 14:49 | PCA ---
Called [facility] at 1421 to check on bed. Transport said that pt is high priority but they don't have any beds right now. They will call when they have a bed.
--- NOTE | 2023-09-06 15:03 | CT_ITS ---
STUDY: CT CHEST, ABDOMEN T PELVIS WITH CONTRAST REASON FOR EXAM: Male, 82 years old. Metastatic brain lesion, evaluating source RADIATION DOSAGE (If Supplied By Facility): CTDIvol = ( 14.10 ) mGy, DLP = ( 1156.38 ) mGycm TECHNIQUE: Transaxial imaging was performed following intravenous administration of Oral and amp; IV Gastrografin and amp; 100mL Isovue-370. Individualized dose optimization techniques were used for this CT. COMPARISON: 02/18/2020 FINDINGS: CHEST Mild bilateral apical scarring. Mild bibasilar cylindrical bronchiectasis with surrounding scarring in the medial right lower lobe. No noncalcified nodule or mass. Tiny bilateral pleural effusions. Normal heart and pericardium. Circumferential wall thickening of the distal esophagus possibly from esophagitis or mass. Endoscopy may be useful. Normal mediastinum. Normal hilar regions. Normal unenhanced pulmonary arteries. Normal aorta arch and descending thoracic aorta. Normal osseous structures. There is no demonstrated abnormality of the visualized upper abdomen. ABDOMEN The visualized lung bases are unremarkable. The visualized portions of the heart are within normal limits. Tiny amount of ascites. Normal liver. Normal gallbladder and extrahepatic biliary system. There is mild splenomegaly. Normal pancreas. Normal bilateral adrenal glands. Normal right kidney. Normal left kidney. 2 left renal cyst. Normal visualized stomach. Normal small intestine. There are multiple colonic diverticula consistent with diverticulosis. The appendix is visualized and appears normal. Normal abdominal aorta. Normal inferior vena cava. Normal retroperitoneum. Normal abdominal wall. There are diffuse degenerative changes of the visualized lumbar spine. PELVIS Normal urinary bladder. Normal visualized small intestine. Normal visualized colon. There is no pelvic fluid. There is no pelvic lymphadenopathy or mass lesion. Radiation seeds within the prostate gland. Normal visualized pelvic arteries. Normal abdominal wall. Normal osseous structures. CT/CT Chest, Abd, Pel w/Contrast IMPRESSION: 1. Mild bibasilar cylindrical bronchiectasis and scarring. 2. Tiny bilateral pleural effusions. 3. No pulmonary nodule or mass. 4. Possible esophagitis or mass and correlation with endoscopy may be useful. 5. Sigmoid diverticulosis without diverticulitis. 6. Radiation seeds within the prostate gland. Electronically Signed: Dave Mckeon MD at 18:52 EST ,
[2023-09-06 15:15] VITALS: O2SAT 97
[2023-09-06 17:00] VITALS: BP 115/60; PULSE 75; RESP 16; TEMP 36.1; O2SAT 97
[2023-09-06 18:48] LABS: Bedside Glucose 304 mg/dL (74-106)
[2023-09-06] MEDS: Atorvastatin Calcium 80 MG Tablet PO (20:59)
[2023-09-06 21:00] VITALS: BP 119/63; PULSE 61; RESP 18; TEMP 36.3; O2SAT 94
[2023-09-06 22:36] LABS: Bedside Glucose 323 mg/dL (74-106)
[2023-09-07 03:00] VITALS: BP 113/56; PULSE 60; RESP 13; TEMP 36.1; O2SAT 100
[2023-09-07 03:03] VITALS: BMI 23.6
[2023-09-07 03:11] LABS: Absolute Lymphocyte Count 0.43 X10^3/uL (0.83-4.51); Absolute Neutrophil Count 2.5 X10^3/uL (2.0-7.7); Basophil# 0.02 X10^3/uL; Basophil% 0.6 % (0-1); Eosinophil# 0.05 X10^3/uL; Eosinophils% 1.5 % (0-5); Hematocrit 26.6 % (40-54); Hemoglobin 8.3 g/dL (13.0-16.5); Lymphocyte # 0.43 X10^3/ul (0.83-4.51); Lymphocyte % 12.7 % (19-41); Mean Corp Hgb Conc 31.2 g/dL (32-36); Mean Corpuscular Hgb 26.5 pg (27.0-32.0); Mean Platelet Vol. 9.5 fl (6.2-12.0); Monocyte# 0.35 X10^3/uL; Monocyte% 10.4 % (0-10); NRBC Flagged by Analyzer 0 % (0-5); Neutrophil % 73.9 % (47-70); POSITIVE DIFFERENTIAL YES; Platelet Count 139 K/mm3 (150-450); RBC Distribution Width CV 15.6 % (11.6-14.6); RBC Distribution Width SD 47.9 fl (35.1-43.9); Red Blood Count 3.13 M/mm3 (4.6-6.2); White Blood Count 3.4 K/mm3 (4.4-11.0)
[2023-09-07 03:12] LABS: Differential Indicated SCAN CRITERIA MET
[2023-09-07 03:36] LABS: Anion Gap 4 (5-15); BUN 16 mg/dL (7-18); BUN/Creat Ratio 15.1 RATIO (10-20); Calcium,Total 8.2 mg/dL (8.5-10.1); Chloride 111 mmol/L (98-107); Creatinine, Serum 1.06 mg/dL (0.70-1.30); EST Glomerular Filtration Rate 71 mL/min (>60); Est Glom Filt Rate - Afr Amer 86 mL/min (>60); Estimated Creatinine Clearance 51.97 ml/min; Glucose 235 mg/dL (74-106); Potassium 4.1 mmol/L (3.5-5.1); Sodium Level 138 mmol/L (136-145)
[2023-09-07] MEDS: Insulin Lispro 100 UNIT/ML INSULN.PEN SC ×3 (05:39→16:26)
[2023-09-07] MEDS: 0.9% Saline Lock 10 ML Syringe IV (05:39)
[2023-09-07 05:58] LABS: Bedside Glucose 226 mg/dL (74-106)
[2023-09-07 06:10] LABS: Differential Comment SCANNED
[2023-09-07] MEDS: 0.9% Normal Saline (1000mL) 1,000 ML 100 ML IV (07:30)
--- NOTE | 2023-09-07 07:54 | PCM.PN.HOSP ---
Reason for Visit Reason for Visit: Diagnoses Other specified disorders of brain (09/04/23) Syncope and collapse (09/04/23) Personal history of malignant neoplasm of esophagus (09/04/23) Subjective Subjective Patient CT of the chest abdomen and pelvis demonstrated 1. Mild bibasilar cylindrical bronchiectasis and scarring. 2. Tiny bilateral pleural effusions. 3. No pulmonary nodule or mass. 4. Possible esophagitis or mass and correlation with endoscopy may be useful. 5. Sigmoid diverticulosis without diverticulitis. 6. Radiation seeds within the prostate gland. Transfer to [facility] still pending Objective Data Objective Data Vital Signs: Vital Signs Temp Pulse Resp BP Pulse Ox O2 Del Method 96.9 F L 60 13 113/56 L 100 Room Air 09/07/23 03:00 09/07/23 03:00 09/07/23 03:00 09/07/23 03:00 09/07/23 03:00 09/07/23 03:00 Oxygen Delivery Method Room Air Weight: 68.3 kg Body Mass Index (BMI) 23.6 Intake & Output: Intake and Output for Last 24 Hours 09/05/23 09/06/23 09/07/23 23:59 23:59 23:59 Intake Total 2373.75 / 2373.75 3095.00 / 3095.00 913.33 / 913.33 Output Total 1750 / 2750 1800 / 1800 700 / 700 Balance 623.75 / -376.25 1295.00 / 1295.00 213.33 / 213.33 Lab / Micro Data 09/07/23 03:04 09/07/23 03:04 Labs: Laboratory Results - last 24 hr 09/06/23 12:51: POC Glucose 236 H 09/06/23 18:31: POC Glucose 304 H 09/06/23 22:07: POC Glucose 323 H 09/07/23 03:04: WBC 3.4 L, RBC 3.13 L, Hgb 8.3 L, Hct 26.6 L, MCV 85.0, MCH 26.5 L, MCHC 31.2 L, RDW Std Deviation 47.9 H, RDW Coeff of Jeanette 15.6 H, Plt Count 139 L, MPV 9.5, Immature Gran % (Auto) 0.900, Neut % (Auto) 73.9 H, Lymph % (Auto) 12.7 L, [place] % (Auto) 10.4 H, Eos % (Auto) 1.5, Baso % (Auto) 0.6, Absolute Neuts (auto) 2.5, Absolute Lymphs (auto) 0.43 L, Nucleated RBC % 0, Differential Comment SCANNED, Diff Path Review May foll, Sodium 138, Potassium 4.1, Chloride 111 H, Carbon Dioxide 23.0, Anion Gap 4 L, BUN 16, Creatinine 1.06, Estim Creat Clear Calc 51.97, Est GFR (MDRD) Af Amer 86, Est GFR (MDRD) Non-Af 71, BUN/Creatinine Ratio 15.1, Glucose 235 H, Calcium 8.2 L 09/07/23 05:38: POC Glucose 226 H Radiography Diagnostic Testing: Radiology Impression Chest/Abdomen/Pelvis CT 09/06/23 15:03 IMPRESSION: 1. Mild bibasilar cylindrical bronchiectasis and scarring. 2. Tiny bilateral pleural effusions. 3. No pulmonary nodule or mass. 4. Possible esophagitis or mass and correlation with endoscopy may be useful. 5. Sigmoid diverticulosis without diverticulitis. 6. Radiation seeds within the prostate gland. Electronically Signed: Dave Mckeon MD at 18:52 EST , Physical Exam Narrative GENERAL: cooperative HEENT: Atraumatic; normocephalic EYES; Anicteric, Normal Conjunctiva NECK; supple, normal thyroid, RESPIRATORY: Diminished to auscultation CARDIOVASCULAR: Regular S1 S2, GI: soft, normoactive bowel sounds, : No Renal angle tenderness; EXTREMITIES: No edema, no clubbing, MUSCULOSKELETAL: no muscle wasting NEURO: Awake; no lateralizing signs. SKIN: No Rash PSYCH; Flat affect Assessment & Plan Assessment/Plan (1) Syncope and collapse: (2) Brain mass: (3) History of esophageal cancer: PLAN: Plan Patient is an 82-year-old gentleman with past medical history significant for esophageal CA, prostate CA as well as bladder CA apparently found unresponsive and confused by the . CT of the head obtained on admission demonstrated Extensive hypodensity in the right frontal lobe that may represent edema possibly from ischemia but there is a questionable hypodense mass present. Currently admitted to monitored bed for further evaluation 1. Unresponsiveness ? Differential diagnosis includes syncopal episode versus seizure. CT of the head and neck obtained on admission did demonstrate Extensive hypodensity in the right frontal lobe that may represent edema possibly from ischemia but there is a questionable hypodense mass present. Admitted to monitored bed subsequent evaluation with MRI with and without contrast [facility]; patient's MRI demonstrated A thick wall peripherally enhancing centrally necrotic mass is present in the most anterior superior aspect of the right frontal lobe measuring 2.38 x 2.08 cm in diameter and surrounded by significant vasogenic edema. Very minimal 1 to 2 mm of leftward midline shift is present. The vasogenic edema extends into the anterior aspect of the corpus callosum and the full anterior to posterior aspect of the frontal lobe. Case was discussed with [facility] teleneurology as well as patient's oncologist Dr. Nick Hwang decision was made to transfer patient to [facility]. Patient was started on Decadron as well as Keppra prior to patient being transferred. Case was also discussed with the patient and the and both agreed with the plan of treatment 2. History of esophageal cancer ? Status post resection with subsequent chemo and radiation adjuvant therapy patient apparently in remission ? 09/07/2023 CT of the chest abdomen and pelvis demonstrated possible recurrence of patient's esophageal cancer results of imaging studies as below 1. Mild bibasilar cylindrical bronchiectasis and scarring. 2. Tiny bilateral pleural effusions. 3. No pulmonary nodule or mass. 4. Possible esophagitis or mass and correlation with endoscopy may be useful. 5. Sigmoid diverticulosis without diverticulitis. 6. Radiation seeds within the prostate gland. 3.History of bladder ? Status post resection 4. History of prostate CA ? Treated with radiation initially had a recurrence and subsequently underwent TURP 5. History of renal cell carcinoma 6. Hypertension - Blood pressure controlled, home medications continued with dose adjustment as needed 7. Diabetes mellitus type II -patient's oral hypoglycemics held. Placed on long acting insulin, Accu-Cheks a.c. and at bedtime and covered with sliding scale insulin 8. Dyslipidemia -Patient is on statin therapy, continued at home dose 10. Coronary artery disease ? With previous PCI patient is on guideline directed medical therapy 11. History of AAA ? Status post repair 12. DVT prophylaxis ? SC heparin Time spent in the patient's overall evaluation,decision-making process, review of diagnostic data, adjustment of management, discussion with other providers, nursing nursing and ancillary staff involved in patient's care documentation, 35 Charges/Coding Visit Charges Inpatient E&M: 82063 Subs Hosp L2
[2023-09-07 08:31] VITALS: O2SAT 95
[2023-09-07 08:45] VITALS: BP 120/67; PULSE 76; RESP 16; TEMP 36.1; O2SAT 96
[2023-09-07] MEDS: Atenolol 25 MG Tablet PO (11:28)
[2023-09-07] MEDS: Tolterodine Tartrate 2 MG CAP.SA PO (11:28)
[2023-09-07] MEDS: Pantoprazole Sodium 40 MG Tablet PO (11:28)
[2023-09-07] MEDS: Fenofibrate 145 MG Tablet PO (11:28)
[2023-09-07] MEDS: levETIRAcetam 500 MG Tablet PO ×2 (11:28→21:15)
[2023-09-07] MEDS: Lisinopril 40 MG Tablet PO (11:28)
[2023-09-07] MEDS: amLODIPine 5 MG Tablet PO (11:29)
[2023-09-07] MEDS: Heparin Injection (Vial) 5,000 UNIT/ML VIAL 5000 UNIT SC ×2 (11:29→21:15)
[2023-09-07] MEDS: Insulin Glargine-YFGN 100 UNIT/ML Pen 24 UNIT SC (12:50)
[2023-09-07 13:15] LABS: Bedside Glucose 292 mg/dL (74-106)
[2023-09-07 13:53] LABS: Pathologist Review Reviewed
[2023-09-07 15:40] VITALS: BP 110/72; PULSE 64; RESP 16; TEMP 36.2; O2SAT 93
[2023-09-07 16:47] LABS: Bedside Glucose 395 mg/dL (74-106)
[2023-09-07 21:12] VITALS: BP 124/58; PULSE 60; RESP 16; TEMP 36.6; O2SAT 95
[2023-09-07] MEDS: Atorvastatin Calcium 80 MG Tablet PO (21:15)
[2023-09-07 21:54] LABS: Bedside Glucose 305 mg/dL (74-106)
[2023-09-08 00:46] LABS: Bedside Glucose 258 mg/dL (74-106)
[2023-09-08] MEDS: Insulin Lispro 100 UNIT/ML INSULN.PEN SC ×3 (01:25→13:23)
[2023-09-08 04:20] LABS: Absolute Lymphocyte Count 0.57 X10^3/uL (0.83-4.51); Absolute Neutrophil Count 3.3 X10^3/uL (2.0-7.7); Basophil# 0.02 X10^3/uL; Basophil% 0.5 % (0-1); Eosinophil# 0.06 X10^3/uL; Eosinophils% 1.4 % (0-5); Hematocrit 27.6 % (40-54); Hemoglobin 8.5 g/dL (13.0-16.5); Lymphocyte # 0.57 X10^3/ul (0.83-4.51); Lymphocyte % 12.9 % (19-41); Mean Corp Hgb Conc 30.8 g/dL (32-36); Mean Corpuscular Hgb 26.3 pg (27.0-32.0); Mean Corpuscular Volume 85.4 fL (80-94); Mean Platelet Vol. 9.8 fl (6.2-12.0); Monocyte# 0.47 X10^3/uL; Monocyte% 10.7 % (0-10); NRBC Flagged by Analyzer 0 % (0-5); Neutrophil # 3.25 X10^3/uL (2.7-7.7); Neutrophil % 73.6 % (47-70); POSITIVE DIFFERENTIAL YES; Platelet Count 156 K/mm3 (150-450); RBC Distribution Width CV 15.4 % (11.6-14.6); RBC Distribution Width SD 48.5 fl (35.1-43.9); Red Blood Count 3.23 M/mm3 (4.6-6.2); White Blood Count 4.4 K/mm3 (4.4-11.0)
[2023-09-08 04:26] LABS: Differential Indicated SCAN CRITERIA MET
[2023-09-08 04:35] LABS: Anion Gap 5 (5-15); BUN 18 mg/dL (7-18); BUN/Creat Ratio 15.9 RATIO (10-20); Calcium,Total 8.5 mg/dL (8.5-10.1); Chloride 109 mmol/L (98-107); Creatinine, Serum 1.13 mg/dL (0.70-1.30); EST Glomerular Filtration Rate 66 mL/min (>60); Est Glom Filt Rate - Afr Amer 80 mL/min (>60); Estimated Creatinine Clearance 48.75 ml/min; Glucose 272 mg/dL (74-106); Potassium 3.9 mmol/L (3.5-5.1); Sodium Level 138 mmol/L (136-145)
[2023-09-08 04:51] LABS: Differential Comment SCANNED
[2023-09-08 05:00] VITALS: BP 118/74; PULSE 54; RESP 16; TEMP 36.6; O2SAT 95
[2023-09-08 05:18] VITALS: BMI 23.6
[2023-09-08 07:11] LABS: Bedside Glucose 245 mg/dL (74-106)
--- NOTE | 2023-09-08 07:50 | PN.HOSP_ITS ---
Reason for Visit Reason for Visit: Diagnoses Other specified disorders of brain (09/04/23) Syncope and collapse (09/04/23) Personal history of malignant neoplasm of esophagus (09/04/23) Subjective Subjective Patient remains anemic but no indication for blood transfusion at this point Objective Data Objective Data Vital Signs: Vital Signs Temp Pulse Resp BP Pulse Ox O2 Del Method 97.8 F 54 L 16 118/74 95 Room Air 09/08/23 05:00 09/08/23 05:00 09/08/23 05:00 09/08/23 05:00 09/08/23 05:00 09/08/23 05:00 Oxygen Delivery Method Room Air Weight: 68.3 kg Body Mass Index (BMI) 23.6 Intake & Output: Intake and Output for Last 24 Hours 09/06/23 09/07/23 09/08/23 23:59 23:59 23:59 Intake Total 3095.00 / 3095.00 3245.00 / 3445.00 300 / 300 Output Total 1800 / 1800 1900 / 2400 500 / 500 Balance 1295.00 / 1295.00 1345.00 / 1045.00 -200 / -200 Lab / Micro Data 09/08/23 04:10 09/08/23 04:10 Labs: Laboratory Results - last 24 hr 09/07/23 03:04: Diff Path Review Reviewed 09/07/23 12:49: POC Glucose 292 H 09/07/23 16:26: POC Glucose 395 H 09/07/23 21:27: POC Glucose 305 H 09/08/23 00:28: POC Glucose 258 H 09/08/23 04:10: WBC 4.4, RBC 3.23 L, Hgb 8.5 L, Hct 27.6 L, MCV 85.4, MCH 26.3 L , MCHC 30.8 L, RDW Std Deviation 48.5 H, RDW Coeff of Jeanette 15.4 H, Plt Count 156, MPV 9.8, Immature Gran % (Auto) 0.900, Neut % (Auto) 73.6 H, Lymph % (Auto) 12.9 L, Ingham % (Auto) 10.7 H, Eos % (Auto) 1.4, Baso % (Auto) 0.5, Absolute Neuts (auto) 3.3, Absolute Lymphs (auto) 0.57 L, Nucleated RBC % 0, Differential Comment SCANNED, Sodium 138, Potassium 3.9, Chloride 109 H, Carbon Dioxide 24.0, Anion Gap 5, BUN 18, Creatinine 1.13, Estim Creat Clear Calc 48.75, Est GFR (MDRD) Af Amer 80, Est GFR (MDRD) Non-Af 66, BUN/Creatinine Ratio 15.9, Glucose 272 H, Calcium 8.5 09/08/23 06:48: POC Glucose 245 H Physical Exam Narrative GENERAL: cooperative HEENT: Atraumatic; normocephalic EYES; Anicteric, Normal Conjunctiva NECK; supple, normal thyroid, RESPIRATORY: Diminished to auscultation CARDIOVASCULAR: Regular S1 S2, GI: soft, normoactive bowel sounds, : No Renal angle tenderness; EXTREMITIES: No edema, no clubbing, MUSCULOSKELETAL: no muscle wasting NEURO: Awake; no lateralizing signs. SKIN: No Rash PSYCH; Flat affect Assessment & Plan Assessment/Plan (1) Syncope and collapse: (2) Brain mass: (3) History of esophageal cancer: PLAN: Plan Patient is an 82-year-old gentleman with past medical history significant for esophageal CA, prostate CA as well as bladder CA apparently found unresponsive and confused by the . CT of the head obtained on admission demonstrated Extensive hypodensity in the right frontal lobe that may represent edema possibly from ischemia but there is a questionable hypodense mass present. Currently admitted to monitored bed for further evaluation 1. Unresponsiveness ? Differential diagnosis includes syncopal episode versus seizure. CT of the head and neck obtained on admission did demonstrate Extensive hypodensity in the right frontal lobe that may represent edema possibly from ischemia but there is a questionable hypodense mass present. Admitted to monitored bed subsequent evaluation with MRI with and without contrast ordered consult placed to [facility] teleneurology ? 09/05/2023; patient's MRI demonstrated A thick wall peripherally enhancing centrally necrotic mass is present in the most anterior superior aspect of the right frontal lobe measuring 2.38 x 2.08 cm in diameter and surrounded by significant vasogenic edema. Very minimal 1 to 2 mm of leftward midline shift is present. The vasogenic edema extends into the anterior aspect of the corpus callosum and the full anterior to posterior aspect of the frontal lobe. Case was discussed with [facility] teleneurology as well as patient's oncologist Dr. Nick Hwang decision was made to transfer patient to [facility]. Patient was started on Decadron as well as Keppra prior to patient being transferred. Case was also discussed with the patient and the and both agreed with the plan of treatment 2. History of esophageal cancer ? Status post resection with subsequent chemo and radiation adjuvant therapy p atient apparently in remission ? 09/07/2023 CT of the chest abdomen and pelvis demonstrated possible recurrence of patient's esophageal cancer results of imaging studies as below 1. Mild bibasilar cylindrical bronchiectasis and scarring. 2. Tiny bilateral pleural effusions. 3. No pulmonary nodule or mass. 4. Possible esophagitis or mass and correlation with endoscopy may be useful. 5. Sigmoid diverticulosis without diverticulitis. 6. Radiation seeds within the prostate gland. 3.History of bladder ? Status post resection 4. History of prostate CA ? Treated with radiation initially had a recurrence and subsequently underwent TURP 5. History of renal cell carcinoma 6. Hypertension - Blood pressure controlled, home medications continued with dose adjustment as needed 7. Diabetes mellitus type II -patient's oral hypoglycemics held. Placed on long acting insulin, Accu-Cheks a.c. and at bedtime and covered with sliding scale insulin 8. Dyslipidemia -Patient is on statin therapy, continued at home dose 10. Coronary artery disease ? With previous PCI patient is on guideline directed medical therapy 11. History of AAA ? Status post repair 12. Anemia - Secondary to chronic disorder/chronic blood loss anemia from patient's suspected esophageal malignancy monitoring H&H and transfuse if patient becomes symptomatic or hemoglobin falls below 7 13. DVT prophylaxis ? SC heparin Time spent in the patient's overall evaluation,decision-making process, review of diagnostic data, adjustment of management, discussion with other providers, nursing nursing and ancillary staff involved in patient's care documentation, 35 Charges/Coding Visit Charges Inpatient E&M: 27364 Subs Hosp L2
[2023-09-08 09:47] VITALS: BP 111/73; PULSE 62; RESP 22; TEMP 36.2; O2SAT 94
[2023-09-08] MEDS: Fenofibrate 145 MG Tablet PO (09:52)
[2023-09-08] MEDS: Lisinopril 40 MG Tablet PO (09:52)
[2023-09-08] MEDS: Pantoprazole Sodium 40 MG Tablet PO (09:52)
[2023-09-08] MEDS: levETIRAcetam 500 MG Tablet PO (09:52)
[2023-09-08] MEDS: amLODIPine 5 MG Tablet PO (09:53)
[2023-09-08] MEDS: Tolterodine Tartrate 2 MG CAP.SA PO (09:53)
[2023-09-08] MEDS: Insulin Glargine-YFGN 100 UNIT/ML Pen 24 UNIT SC (09:54)
[2023-09-08 10:56] VITALS: O2SAT 94
[2023-09-08] MEDS: Heparin Injection (Vial) 5,000 UNIT/ML VIAL 5000 UNIT SC (11:03)
[2023-09-08] MEDS: Atenolol 25 MG Tablet PO (11:04)
[2023-09-08 13:37] LABS: Bedside Glucose 299 mg/dL (74-106)
--- NOTE | 2023-09-08 13:44 | NURSING ---
Report called to [facility] RN, all questions and concerns answered.
[2023-09-08 14:31] VITALS: BP 107/59; PULSE 63; RESP 19; TEMP 36.2; O2SAT 96
[2023-09-12 17:07] LABS: Cryptococcus Ag, Serum Negative (Negative); Histoplasma Abs Negative (Neg:<1:1)
== END 2023-09-08 15:45 | disposition short-term general hospital (02) ==
LOC: ED 23:01 → ICU 23:20
PROVIDERS: Admitting Provider Internal Medicine; Emergency Provider Student in an Organized Health Care Education/Training Program; Visit Provider Internal Medicine
DX: R55 Syncope and collapse (principal); C71.1 Malignant neoplasm of frontal lobe; E11.9 Type 2 diabetes mellitus without complications; Z79.4 Long term (current) use of insulin; R41.82 Altered mental status, unspecified; Z87.891 Personal history of nicotine dependence; S61.411A Laceration without foreign body of right hand, initial encounter; E78.00 Pure hypercholesterolemia, unspecified; Z79.84 Long term (current) use of oral hypoglycemic drugs; I10 Essential (primary) hypertension; Z79.899 Other long term (current) drug therapy; X58.XXXA Exposure to other specified factors, initial encounter; D64.9 Anemia, unspecified; I25.10 Atherosclerotic heart disease of native coronary artery without angina pectoris
CPT/HCPCS: 70450; 70496; 70498; 70553; 71045; 71260; 74177; 80048; 80053; 80061; 80307; 81001; 82077; 82962; 83036; 83735; 83880; 84100; 84153; 84443; 84484; 85025; 86698; 87899; 93005; 93306; 93880; 95819; 96360; 96361; 96372; 97802; 99221; 99285; A9575; J7030; Q9967; A4216; G0103; G0378

== ENCOUNTER 2023-11-24 21:18 | Emergency (ER) | payer MEDICARE, SELFPAY ==
[2023-11-24 21:18] VITALS: BP 144/73; PULSE 124; RESP 18; TEMP 37.4; O2SAT 98; BMI 24.4
[2023-11-24 21:28] VITALS: BP 144/70; PULSE 112; RESP 19; TEMP 37.7; O2SAT 98
--- NOTE | 2023-11-24 21:51 | EKG12_ITS ---
Test Reason : FEVER Blood Pressure : / mmHG Vent. Rate : 106 BPM Atrial Rate : 106 BPM P-R Int : 168 ms QRS Dur : 074 ms QT Int : 328 ms P-R-T Axes : 029 -14 038 degrees QTc Int : 435 ms Sinus tachycardia with Premature atrial complexes Otherwise normal ECG Confirmed by SHU ELIZABETH, SUN ([id number]), senior technical editor GABRIELLE CALDWELL ([id number]) on 11/26/2023 9:34:30 AM Referred By: Confirmed By:SUN IRELAND MD
--- NOTE | 2023-11-24 21:52 | EDS_ITS ---
HPI History of Present Illness Chief Complaint: Fever Informant: patient Onset/Context/Timing Onset: Today Context: Gradual Onset Timing: Waxes and wanes Quality: Fever Location: Generalized Worsened by: Nothing Relieved by: Nothing Narrative Narrative: Patient presents with a fever that began today. Patient states his temperature at home was 100.1. Patient states that he rechecked it later and it was down to 99.4. Patient states that after that he rechecked it and it was up to 101. Patient admits to a recent sore throat. Patient admits to a cough. Patient denies any nausea or vomiting. Patient states she did have chemotherapy 4 days ago. Patient states he called his oncologist who referred him to the emergency department for fever workup. [facility] Medical History Alcohol use Anemia Arthritis Back pain Bladder disease Cancer Cardiology follow-up encounter Diabetes Dietary restriction Former smoker GERD (gastroesophageal reflux disease) High cholesterol History of echocardiogram History of edema History of esophageal dilatation History of gastrointestinal hemorrhage History of GI bleed History of prostate cancer History of renal disease History of stress test Hypertension Injury of head and neck Insulin dependent diabetes mellitus Kidney disease Leg cramps Wears dentures Wears glasses Home Medications amlodipine 5 mg tablet 5 mg PO DAILY 11/17/13 [History Last Taken 11/24/23] glimepiride 2 mg tablet 4 mg PO BID 11/17/13 [History Last Taken Unknown] nitroglycerin 0.4 mg sublingual tablet 0.4 mg sublingual Q5M PRN Chest Pain 11/17/13 [History Last Taken Unknown] sildenafil 100 mg tablet (Viagra) 100 mg PO PRN PRN SEXUAL USE 11/17/13 [History Last Taken Unknown] ergocalciferol (vitamin D2) 1,250 mcg (50,000 unit) capsule 1 tab PO FLETCHER 05/02/19 [History Last Taken Unknown] fenofibrate 160 mg tablet 160 mg PO DAILY 05/02/19 [History Last Taken Unknown] dulaglutide 0.75 mg/0.5 mL subcutaneous pen injector (Trulicity) 0.75 mg subcut FLETCHER 09/09/21 [History Last Taken Unknown] pantoprazole 40 mg tablet,delayed release 40 mg PO DAILY 09/09/21 [History Last Taken 03/28/23] rosuvastatin 40 mg tablet 40 mg PO DAILY 09/09/21 [History Last Taken Unknown] dapagliflozin propanediol 10 mg tablet (Farxiga) 10 mg PO DAILY 03/19/23 [History Last Taken Unknown] insulin glargine U-300 conc 300 unit/mL (3 mL) subcutaneous pen (Toujeo Max U- 300 SoloStar) 44 unit subcut DAILY 03/19/23 [History Last Taken Unknown] oxybutynin chloride 10 mg tablet,extended release 24 hr 10 mg PO DAILY #90 tabs 03/28/23 [Rx Last Taken Unknown] cephalexin 500 mg capsule 500 mg PO Q6 #20 CAPSULES 11/25/23 [Rx Last Taken Unknown] Allergy/AdvReac Type Severity Reaction Status Date / Time chlorhexidine Allergy Rash Verified 09/04/23 19:36 Family History Other COPD (chronic obstructive pulmonary disease) Surgical History History of AAA (abdominal aortic aneurysm) repair History of cardiac catheterization History of coronary artery stent placement History of herniorrhaphy History of transurethral resection of bladder tumor (TURBT) Social History Smoking Status: Former smoker alcohol intake: current alcohol intake frequency: 0-2 drinks per day Alcohol type: hard liquor ROS ROS ED Constitutional Constitutional ED: Reports fever(s); Denies chills Eyes Eyes: Denies blurry vision or change in vision ENT ENT ED: Reports sore throat; Denies rhinorrhea Cardiovascular Cardiovascular: Denies chest pain or palpitations Respiratory/Chest Respiratory/Chest: Reports cough; Denies dyspnea Gastrointestinal Gastrointestinal: Denies nausea or vomiting Genitourinary Genitourinary ED: Denies dysuria or hematuria Musculoskeletal Musculoskeletal: Reports neck pain; Denies back pain Integumentary Denies abscess or rash Neurologic Neurologic: Denies headache(s) or weakness Allergic/Immunologic Allergic/Immunologic ED: Denies mouth swelling or urticaria EXAM Physical Exam Const Vital Signs: 11/24/23 21:18 11/24/23 21:27 11/24/23 21:28 Temperature 99.3 F H 99.9 F H Temperature Source Oral Oral Pulse Rate 124 H 112 H Respiratory Rate 18 19 H Respiratory Effort Normal Respiratory Pattern Normal Blood Pressure 144/73 H 144/70 H Blood Pressure Mean 96 94 Pulse Ox 98 98 Oxygen Delivery Method Room Air Room Air 11/24/23 21:51 11/24/23 22:49 11/24/23 23:18 Temperature 99.7 F H 99.6 F H Temperature Source Oral Oral Pulse Rate 108 H 111 H Respiratory Rate 18 16 Respiratory Effort Respiratory Pattern Blood Pressure 111/68 134/74 H Blood Pressure Mean 82 94 Pulse Ox 97 95 Oxygen Delivery Method Room Air Room Air Room Air Positive well nourished and well developed General Appearance ED: well developed and NAD HEENT Reports moist mucous membranes Neck supple and no JVD Resp normal respiratory effort and clear to auscultation bilaterally Cardio regular rhythm GI non-tender and non-distended Palpation: soft Extremity normal to inspection General Extremety ED: Negative for edema or tenderness General Extremity: Negative for edema Neuro oriented x3, CN's II-XII intact bilaterally and no sensory deficits noted Sensorium / Orientation: alert Motor Exam: strength 5/5 throughout Psych mental status grossly normal MDM MDM MDM Narrative Medical decision making narrative: Differential diagnosis includes neutropenic sepsis, cardiac dysrhythmia, cardiac ischemia, pneumonia, urinary tract infection, dehydration, and viral infection. EKG will be obtained to assess for cardiac dysrhythmia and cardiac ischemia. Chest x-ray will be obtained to assess for pneumonia and pneumothorax. CBC will be obtained to assess for leukocytosis and anemia. Comprehensive metabolic profile will be obtained to assess for hepatic function, renal function, and electrolyte abnormality. Urinalysis will be obtained to assess for urinary tract infection. PT with INR and PTT will be obtained to assess for coagulopathy. Lactate will be obtained to assess for sepsis. COVID-19, influenza, and RSV PCR will be obtained to assess for viral infection. Blood cultures will be obtained to assess for sepsis. Urine culture will be obtained to assess for urinary tract infection. Lab Data Attestation: I reviewed the patient's lab results. Lab results narrative: CBC was reviewed. There is a mild anemia with a hemoglobin of 9.0 and hematocrit 27.5. Platelets were normal. White blood cell count was normal. There is no left shift. Absolute neutrophil count was normal at 5.0. Comprehensive metabolic profile was reviewed. BUN was 26 and creatinine was 1.49. These are slightly increased from previous result but has had similar res ults in the past. Lactate was reviewed and was normal at 0.8. Urinalysis was reviewed. Leukocyte Estrace was 100 with 10-25 white blood cells. Labs: Laboratory Results - last 24 hr 11/24/23 11/24/23 21:32 22:35 WBC 5.6 RBC 3.06 L Hgb 9.0 L Hct 27.5 L MCV 89.9 MCH 29.4 MCHC 32.7 RDW Std Deviation 64.3 H RDW Coeff of Jeanette 19.5 H Plt Count 271 MPV 9.8 Immature Gran % (Auto) 0.400 Neut % (Auto) 89.0 H Lymph % (Auto) 7.8 L Faulkner % (Auto) 0.5 Eos % (Auto) 2.1 Baso % (Auto) 0.2 Absolute Neuts (auto) 5.0 Absolute Lymphs (auto) 0.44 L Nucleated RBC % 0 PT 14.6 INR 1.1 APTT 35.8 Sodium 138 Potassium 3.7 Chloride 107 Carbon Dioxide 25.0 Anion Gap 6 BUN 26 H Creatinine 1.49 H Estim Creat Clear Calc 36.35 Est GFR (MDRD) Af Amer 58 L Est GFR (MDRD) Non-Af 48 L BUN/Creatinine Ratio 17.4 Glucose 130 H Lactic Acid 0.8 Calcium 9.2 Total Bilirubin 0.80 AST 56 H ALT 43 Alkaline Phosphatase 61 Total Protein 6.8 Albumin 3.7 Globulin 3.1 Albumin/Globulin Ratio 1.2 Urine Color Yellow Urine Clarity Clear Urine pH 8.0 Ur Specific Whiting 1.015 Urine Protein 30 H Urine Glucose (UA) 1000 H Urine Ketones Negative Urine Occult Blood 10 H Urine Nitrite Negative Urine Bilirubin Negative Urine Urobilinogen Normal Ur Leukocyte Esterase 100 H Urine RBC 0-5 SEEN Urine WBC 10-25 SEEN Ur Squamous Epith Cells 0 SEEN Urine Bacteria 0 SEEN Urine Mucus 0 SEEN Radiography Diagnostic Testing: Clinical Impression(s) from Imaging Studies Chest X-Ray 11/24/23 22:15 IMPRESSION: Minimal bilateral basilar atelectasis, otherwise no acute cardiopulmonary disease. Electronically Signed: Yumi De La Fuente MD at 22:45 EST , Portable 1 view chest x-ray was obtained. On my independent interpretation, lung nielson showed minimal bibasilar atelectasis. There is normal cardiac silhouette. Bony thorax is normal. There is no acute process noted. Radiologist also interpreted the x-ray and agrees. EKG Initial EKG: Attestation: I personally reviewed and interpreted this EKG as follows: Interpretation: Sinus Tachycardia (106) and Non-Specific ST Changes Comments: EKG was obtained. On my independent interpretation, it showed a sinus tachycardia with occasional PACs with a rate of 106. TN interval, QRS interval, and QTc intervals were all normal. There is borderline left axis deviation at -14. There are no acute ST or T wave changes. Prior EKG tracings: available for review Prior: Unchanged (09/04/2023) Treatment and Re-Evaluation :: Patient was given a dose of Tylenol here. Patient was given IV fluids. Patient was advised of his findings. Patient was given a dose of Rocephin here. Patient was given a prescription for Keflex. Patient was instructed to follow- up with his primary care physician and oncologist in 3 to 5 days. Patient was instructed to return if worse in any way. Patient understood and was agreeable with the plan. All questions were answered. Discharge Plan Triage Chief Complaint: Fever ED Provider: Jeremias Morse Dx/Rx/DC Orders Clinical Impression: Urinary tract infection, Type II diabetes mellitus Instructions: ED Bladder Infection, Male (Adult) Prescriptions: New cephalexin [cephalexin] 500 mg capsule 500 mg PO Q6 Qty: 20 0RF No Action amlodipine 5 MG tablet 5 mg PO DAILY sildenafil [Viagra] 100 MG tablet 100 mg PO PRN PRN (Reason: SEXUAL USE) glimepiride 2 MG tablet 4 mg PO BID nitroglycerin 0.4 MG tablet 0.4 mg sublingual Q5M PRN (Reason: Chest Pain) ergocalciferol (vitamin D2) 50,000 U capsule 1 tab PO FLETCHER fenofibrate 160 MG tablet 160 mg PO DAILY pantoprazole 40 mg tablet,delayed release (DR/EC) 40 mg PO DAILY rosuvastatin 40 mg tablet 40 mg PO DAILY Trulicity 0.75 mg/0.5 mL Pen Injector 0.75 mg SUBCUT FLETCHER dapagliflozin propanediol [Farxiga] 10 mg Tablet 10 mg PO DAILY insulin glargine U-300 conc [Toujeo Max U-300 SoloStar] 300 unit/mL (3 mL) I nsulin Pen 44 unit SUBCUT DAILY oxybutynin chloride 10 mg tablet extended release 24hr 10 mg PO DAILY Qty: 90 3RF Primary Care Provider: Maria Eugenia Garcia Referrals: Maria Eugenia Garcia DO [Primary Care Provider] - 3-5 Days Nick Hwang DO [Med Staff - Active Staff] - 3-5 Days Disposition Disposition: Home, Self Care
--- NOTE | 2023-11-24 22:15 | RAD_ITS ---
STUDY: X-RAY CHEST REASON FOR EXAM: Male, 83 years old. Fever TECHNIQUE: Single AP portable view of the chest. COMPARISON: 09/04/2023. FINDINGS: Minimal bilateral basilar atelectasis, improved in the interval. Otherwise lung nielson are clear. There is no demonstrated pleural abnormality. Normal size heart. Normal mediastinum and rain. Normal visualized pulmonary arteries. There is atherosclerotic calcification of the aortic arch . There are diffuse degenerative changes of the visualized thoracic spine. There is degenerative osteoarthritis of the bilateral shoulders. There is no demonstrated abnormality of the visualized soft tissue structures of the upper abdomen. RAD/Chest 1 View (Portable) IMPRESSION: Minimal bilateral basilar atelectasis, otherwise no acute cardiopulmonary disease. Electronically Signed: Yumi De La Fuente MD at 22:45 EST ,
[2023-11-24 22:24] LABS: ALB/GLOB Ratio 1.2 RATIO (0.9-2.4); AST(SGOT) 56 U/L (15-37); Alanine Aminotransfer ALT/SGPT 43 U/L (16-61); Albumin, Serum 3.7 g/dL (3.2-5.0); Alkaline Phosphatase 61 U/L (45-117); Anion Gap 6 (5-15); BUN 26 mg/dL (7-18); BUN/Creat Ratio 17.4 RATIO (10-20); Calcium,Total 9.2 mg/dL (8.5-10.1); Chloride 107 mmol/L (98-107); Creatinine, Serum 1.49 mg/dL (0.70-1.30); EST Glomerular Filtration Rate 48 mL/min (>60); Est Glom Filt Rate - Afr Amer 58 mL/min (>60); Estimated Creatinine Clearance 36.35 ml/min; Globulin 3.1 g/dL (2.2-4.2); Glucose 130 mg/dL (74-106); Potassium 3.7 mmol/L (3.5-5.1); Protein, Total 6.8 g/dL (6.4-8.2); Sodium Level 138 mmol/L (136-145)
[2023-11-24] MEDS: 0.9% Normal Saline (1000mL) 1,000 ML 999 ML IV (22:25)
[2023-11-24 22:30] LABS: Absolute Lymphocyte Count 0.44 X10^3/uL (0.83-4.51); Basophil# 0.01 X10^3/uL; Basophil% 0.2 % (0-1); Eosinophil# 0.12 X10^3/uL; Eosinophils% 2.1 % (0-5); Hematocrit 27.5 % (40-54); Lymphocyte # 0.44 X10^3/ul (0.83-4.51); Lymphocyte % 7.8 % (19-41); Mean Corp Hgb Conc 32.7 g/dL (32-36); Mean Corpuscular Hgb 29.4 pg (27.0-32.0); Mean Corpuscular Volume 89.9 fL (80-94); Mean Platelet Vol. 9.8 fl (6.2-12.0); Monocyte# 0.03 X10^3/uL; Monocyte% 0.5 % (0-10); NRBC Flagged by Analyzer 0 % (0-5); Neutrophil # 4.99 X10^3/uL (2.7-7.7); POSITIVE DIFFERENTIAL YES; Platelet Count 271 K/mm3 (150-450); RBC Distribution Width CV 19.5 % (11.6-14.6); RBC Distribution Width SD 64.3 fl (35.1-43.9); Red Blood Count 3.06 M/mm3 (4.6-6.2); White Blood Count 5.6 K/mm3 (4.4-11.0)
[2023-11-24 22:34] LABS: Lactic Acid 0.8 mmol/L (0.4-1.9)
[2023-11-24 22:37] LABS: International Normalized Ratio 1.1; Prothrombin Time (Protime)PT. 14.6 SECONDS (11.7-14.9)
[2023-11-24 22:38] LABS: Partial Thromboplast Time 35.8 Seconds (24.1-36.2)
[2023-11-24 22:45] LABS: Bacteria 0 SEEN /hpf (None Seen); Mucous, Urine 0 SEEN /hpf (<or=2+); Squamous Epithelial Cells - UA 0 SEEN /hpf (0-5)
[2023-11-24] MEDS: Acetaminophen 500 MG Tablet 1000 MG PO (22:46)
[2023-11-24 22:47] LABS: Color, Urine Yellow (Yellow); Glucose, Dipstick 1000 mg/dl (Normal); Ketone-Dipstick Negative (Negative); Leukocyte Esterase-Dipstick 100 /ul (Negative); Nitrite-Dipstick Negative (Negative); Occult Blood-Urine 10 /ul (Negative); Protein-Dipstick 30 mg/dl (Negative); Specific Gravity, Urine 1.015 (1.002-1.030); Urine Bilirubin Dipstick Negative (Negative); Urine Clarity Clear (Clear); Urine Urobilinogen Normal (Normal)
[2023-11-24 22:49] VITALS: BP 111/68; PULSE 108; RESP 18; TEMP 37.6; O2SAT 97
[2023-11-24 22:55] LABS: Red Blood Cells-Urine 0-5 SEEN /hpf (0-5); White Blood Cells 10-25 SEEN /hpf (0-5)
[2023-11-24 23:18] VITALS: BP 134/74; PULSE 111; RESP 16; TEMP 37.6; O2SAT 95
[2023-11-25] VITALS: BP 123/68; PULSE 104; RESP 16; TEMP 37.6; O2SAT 97
[2023-11-25] MEDS: Ceftriaxone 1 GM/50 ML BAG IV (00:13)
[2023-11-25 00:26] VITALS: BP 123/68; PULSE 104; RESP 16; TEMP 37.6; O2SAT 97
== END 2023-11-25 00:28 | disposition home or self-care (01) ==
PROVIDERS: Emergency Provider Emergency Medicine; Visit Provider Emergency Medicine
DX: N39.0 Urinary tract infection, site not specified (principal); E11.9 Type 2 diabetes mellitus without complications; Z87.891 Personal history of nicotine dependence; J02.9 Acute pharyngitis, unspecified; I10 Essential (primary) hypertension; E78.00 Pure hypercholesterolemia, unspecified; K21.9 Gastro-esophageal reflux disease without esophagitis; Z79.899 Other long term (current) drug therapy; R05.9 Cough, unspecified
CPT/HCPCS: 71045; 80053; 81001; 83605; 85025; 85610; 85730; 87040; 87086; 87088; 87631; 93005; 96361; 96365; 99284; J7030; A4216

== ENCOUNTER 2023-11-26 14:41 | Emergency (ER) | payer MEDICARE, SELFPAY ==
[2023-11-26 14:42] VITALS: BP 141/96; PULSE 136; RESP 18; TEMP 37.7; O2SAT 94
[2023-11-26 14:58] LABS: Mucous, Urine 0 SEEN /hpf (<or=2+)
[2023-11-26 15:04] LABS: Color, Urine Yellow (Yellow); Glucose, Dipstick 1000 mg/dl (Normal); Ketone-Dipstick Negative (Negative); Leukocyte Esterase-Dipstick 500 /ul (Negative); Nitrite-Dipstick Negative (Negative); Occult Blood-Urine 250 /ul (Negative); Protein-Dipstick 100 mg/dl (Negative); Urine Bilirubin Dipstick Negative (Negative); Urine Clarity Sl. Cloudy (Clear); Urine Urobilinogen Normal (Normal)
[2023-11-26 15:08] LABS: Red Blood Cells-Urine 25-50 SEEN /hpf (0-5); Squamous Epithelial Cells - UA 0-5 SEEN /hpf (0-5); White Blood Cells 25-50 SEEN /hpf (0-5)
[2023-11-26 15:09] LABS: Bacteria 1+ /hpf (None Seen); Yeast-Urine 1+ /hpf (None Seen)
--- NOTE | 2023-11-26 15:16 | EKG12_ITS ---
Test Reason : DIZZINESS Blood Pressure : / mmHG Vent. Rate : 127 BPM Atrial Rate : 000 BPM P-R Int : 000 ms QRS Dur : 074 ms QT Int : 324 ms P-R-T Axes : 000 022 042 degrees QTc Int : 470 ms Atrial fibrillation with rapid ventricular response Abnormal ECG Confirmed by ELBA ELIZABETH, THERESA ([id number]), assistant production editor BING AL ([id number]) on 12/03/2023 9:57:32 AM Referred By: Confirmed By:GINA ARREOLA MD
--- NOTE | 2023-11-26 15:18 | EX.ED.DYSGE1 ---
HPI History of Present Illness Chief Complaint: Fever Informant: patient Onset/Context/Timing Onset: Days (3 days) Context: Gradual Onset Narrative Narrative: Patient presents secondary to continued fever. Patient was seen in the ER 2 days ago with onset of fever. He has a very mild cough. He denies vomiting, diarrhea, urinary symptoms. No abdominal pain. Workup in the ED was remarkable only for UTI. He was given dose of Rocephin here and discharged on Keflex. His urine culture showed mixed organisms. Patient presents secondary to continued fever up to the 101-102 range. [facility] Medical History Alcohol use Anemia Arthritis Back pain Bladder disease Cancer Cardiology follow-up encounter Diabetes Dietary restriction Former smoker GERD (gastroesophageal reflux disease) High cholesterol History of echocardiogram History of edema History of esophageal dilatation History of gastrointestinal hemorrhage History of GI bleed History of prostate cancer History of renal disease History of stress test Hypertension Injury of head and neck Insulin dependent diabetes mellitus Kidney disease Leg cramps Wears dentures Wears glasses Home Medications amlodipine 5 mg tablet 5 mg PO DAILY 11/17/13 [History Last Taken 11/24/23] glimepiride 2 mg tablet 4 mg PO BID 11/17/13 [History Last Taken Unknown] nitroglycerin 0.4 mg sublingual tablet 0.4 mg sublingual Q5M PRN Chest Pain 11/17/13 [History Last Taken Unknown] sildenafil 100 mg tablet (Viagra) 100 mg PO PRN PRN SEXUAL USE 11/17/13 [History Last Taken Unknown] ergocalciferol (vitamin D2) 1,250 mcg (50,000 unit) capsule 1 tab PO FLETCHER 05/02/19 [History Last Taken Unknown] fenofibrate 160 mg tablet 160 mg PO DAILY 05/02/19 [History Last Taken Unknown] dulaglutide 0.75 mg/0.5 mL subcutaneous pen injector (Trulicity) 0.75 mg subcut FLETCHER 09/09/21 [History Last Taken Unknown] pantoprazole 40 mg tablet,delayed release 40 mg PO DAILY 09/09/21 [History Last Taken 03/28/23] rosuvastatin 40 mg tablet 40 mg PO DAILY 09/09/21 [History Last Taken Unknown] dapagliflozin propanediol 10 mg tablet (Farxiga) 10 mg PO DAILY 03/19/23 [History Last Taken Unknown] insulin glargine U-300 conc 300 unit/mL (3 mL) subcutaneous pen (Toujeo Max U-300 SoloStar) 44 unit subcut DAILY 03/19/23 [History Last Taken Unknown] oxybutynin chloride 10 mg tablet,extended release 24 hr 10 mg PO DAILY #90 tabs 03/28/23 [Rx Last Taken Unknown] cephalexin 500 mg capsule 500 mg PO Q6 #20 CAPSULES 11/25/23 [Rx Last Taken Unknown] sulfamethoxazole 800 mg-trimethoprim 160 mg tablet (Bactrim DS) 1 tab PO BID #7 tabs 11/26/23 [Rx Last Taken Unknown] Allergy/AdvReac Type Severity Reaction Status Date / Time chlorhexidine Allergy Rash Verified 11/26/23 14:42 Family History Other COPD (chronic obstructive pulmonary disease) Surgical History History of AAA (abdominal aortic aneurysm) repair History of cardiac catheterization History of coronary artery stent placement History of herniorrhaphy History of transurethral resection of bladder tumor (TURBT) Social History Smoking Status: Former smoker alcohol intake: current alcohol intake frequency: 0-2 drinks per day Alcohol type: hard liquor ROS ROS ED Constitutional Constitutional ED: Reports fever(s); Denies chills Eyes Eyes: Denies change in vision or discharge from eye(s) ENT ENT ED: Denies discharge from eye(s), rhinorrhea or sore throat Cardiovascular Cardiovascular: Denies chest pain or palpitations Respiratory/Chest Respiratory/Chest: Reports cough; Denies dyspnea Gastrointestinal Gastrointestinal: Denies abdominal pain, diarrhea, nausea or vomiting Genitourinary Genitourinary ED: Denies difficulty urinating, dysuria or hematuria Musculoskeletal Musculoskeletal: Denies back pain or extremity pain Integumentary Denies Abrasions or rash Neurologic Neurologic: Denies headache(s) or weakness Psychiatric Psychiatric: Denies anxiety or depression Allergic/Immunologic Allergic/Immunologic ED: Denies lip swelling or urticaria EXAM Physical Exam Const Vital Signs: 11/26/23 14:42 11/26/23 15:52 11/26/23 15:53 Temperature 99.9 F H Temperature Source Temporal Pulse Rate 136 H Respiratory Rate 18 Respiratory Effort Normal Non-Labored Respiratory Pattern Normal Blood Pressure 141/96 H Blood Pressure Mean 111 Pulse Ox 94 Oxygen Delivery Method Room Air Room Air 11/26/23 15:45 11/26/23 16:45 Temperature 100.4 F H 99.3 F H Temperature Source Oral Oral Pulse Rate 115 H 109 H Respiratory Rate 20 H 20 H Respiratory Effort Respiratory Pattern Blood Pressure 121/68 H 124/55 H Blood Pressure Mean 83 74 Pulse Ox 95 97 Oxygen Delivery Method Room Air Room Air Positive well nourished and well developed General Appearance ED: well developed HEENT Reports moist mucous membranes Eyes EOMs intact bilaterally Chest Wall inspection of chest normal and palpation of chest normal Resp normal respiratory effort and clear to auscultation bilaterally Cardio regular rhythm Rate: tachycardic GI non-tender Palpation: soft Extremity normal to inspection Neuro oriented x3 and no sensory deficits noted Motor Exam: strength 5/5 throughout Psych mental status grossly normal Skin no rashes or lesions noted MDM MDM MDM Narrative Medical decision making narrative: IV line established. Labwork obtained to evaluate for leukocytosis, anemia, and electrolyte derangement. Chest x-ray obtained to evaluate for acute lung pathology, cardiac size, or mediastinal abnormality. Urinalysis obtained to evaluate for infection/hematuria. Blood and urine cultures rechecked. Swab for COVID, influenza, and RSV obtained. History & Record Review Discussion w/independent historian: Patient Lab Data Attestation: I reviewed the patient's lab results. Labs: Laboratory Results - last 24 hr 11/26/23 11/26/23 14:55 15:40 WBC 3.3 L RBC 2.63 L Hgb 7.7 L Hct 23.1 L MCV 87.8 MCH 29.3 MCHC 33.3 RDW Std Deviation 59.8 H RDW Coeff of Jeanette 18.8 H Plt Count 164 MPV 10.3 Immature Gran % (Auto) 1.200 H Neut % (Auto) 87.9 H Lymph % (Auto) 8.2 L [place] % (Auto) 1.5 Eos % (Auto) 0.9 Baso % (Auto) 0.3 Absolute Neuts (auto) 2.9 Absolute Lymphs (auto) 0.27 L Nucleated RBC % 0 Differential Comment SCANNED PT 15.5 H INR 1.2 APTT 38.9 H Sodium 136 Potassium 3.3 L Chloride 108 H Carbon Dioxide 21.0 Anion Gap 7 BUN 28 H Creatinine 1.62 H Est GFR (MDRD) Af Amer 53 L Est GFR (MDRD) Non-Af 44 L BUN/Creatinine Ratio 17.3 Glucose 105 Lactic Acid 1.1 Calcium 8.6 Total Bilirubin 0.60 AST 46 H ALT 36 Alkaline Phosphatase 51 Troponin I High Sens 26 Total Protein 6.4 Albumin 3.2 Globulin 3.2 Albumin/Globulin Ratio 1.0 TSH 0.80 Urine Color Yellow Urine Clarity Sl. Cloudy Urine pH 5.0 Ur Specific [place] 1.020 Urine Protein 100 H Urine Glucose (UA) 1000 H Urine Ketones Negative Urine Occult Blood 250 H Urine Nitrite Negative Urine Bilirubin Negative Urine Urobilinogen Normal Ur Leukocyte Esterase 500 H Urine RBC 25-50 SEEN Urine WBC 25-50 SEEN Ur Squamous Epith Cells 0-5 SEEN Urine Bacteria 1+ Urine Mucus 0 SEEN Urine Yeast 1+ Radiography Diagnostic Testing: Clinical Impression(s) from Imaging Studies Chest X-Ray 11/26/23 15:40 IMPRESSION: No acute thoracic pathology. Electronically Signed: Sachin Duran MD at 15:55 EST , Treatment and Re-Evaluation :: CBC was low white count at 3.3 with a hemoglobin of 7.7. 87% neutrophils noted. Coags unremarkable. Chemistry studies significant for slightly low potassium at 3.3. BUN is 28 and creatinine is 1.62. This is slightly increased from prior. He is given a liter of IV fluids here. LFTs significant only for an AST of 46. Urinalysis today does show 25-50 white cells, 25-50 red cells, and 1+ bacteria. Swab for COVID, influenza, and RSV continues to be negative. Portable chest x-ray per my interpretation reveals no focal infiltrate. Radiology interpretation reviewed and agrees. EKG is read as A-fib at 127. It does appear patient is in sinus rhythm for much of the tracing with either a run of PACs or a short burst of A-fib. I did review the patient's cardiac monitoring while in the emergency room. He does appear to have frequent PACs. Patient is already on a calcium channel soila for hypertension control. He is currently being treated for a brain tumor and did not feel that anticoagulation would be an option for him. On repeat evaluation he appears well. We will treat him with a course of Bactrim and resend the urine culture. Patient was advised that if he does not improve over the next 48 hours will likely need admission for IV antibiotics. Discharge Plan Triage Chief Complaint: Fever Other Complaint: Complaint ED Provider: Heather Salguero Dx/Rx/DC Orders Clinical Impression: UTI (urinary tract infection) Instructions: ED Urinary Tract Infections in Men Prescriptions: New sulfamethoxazole-trimethoprim [Bactrim DS] 800-160 mg tablet 1 tab PO BID Qty: 7 0RF No Action amlodipine 5 MG tablet 5 mg PO DAILY sildenafil [Viagra] 100 MG tablet 100 mg PO PRN PRN (Reason: SEXUAL USE) glimepiride 2 MG tablet 4 mg PO BID nitroglycerin 0.4 MG tablet 0.4 mg sublingual Q5M PRN (Reason: Chest Pain) ergocalciferol (vitamin D2) 50,000 U capsule 1 tab PO FLETCHER fenofibrate 160 MG tablet 160 mg PO DAILY pantoprazole 40 mg tablet,delayed release (DR/EC) 40 mg PO DAILY rosuvastatin 40 mg tablet 40 mg PO DAILY Trulicity 0.75 mg/0.5 mL Pen Injector 0.75 mg SUBCUT FLETCHER dapagliflozin propanediol [Farxiga] 10 mg Tablet 10 mg PO DAILY insulin glargine U-300 conc [Toujeo Max U-300 SoloStar] 300 unit/mL (3 mL) Insulin Pen 44 unit SUBCUT DAILY oxybutynin chloride 10 mg tablet extended release 24hr 10 mg PO DAILY Qty: 90 3RF cephalexin [cephalexin] 500 mg capsule 500 mg PO Q6 Qty: 20 0RF Primary Care Provider: Maria Eugenia Garcia Referrals: Maria Eugenia Garcia DO [Primary Care Provider] - 3-5 Days Nick Hwang DO [Med Staff - Active Staff] - 3-5 Days Disposition Disposition: Home, Self Care
[2023-11-26] MEDS: 0.9% Normal Saline (1000mL) 1,000 ML 150 ML IV (15:37)
--- NOTE | 2023-11-26 15:40 | RAD_ITS ---
STUDY: X-RAY CHEST REASON FOR EXAM: Male, 83 years old. Fever TECHNIQUE: Frontal view of the chest COMPARISON: 11/24/2023 FINDINGS: The lungs are clear. There are no pleural effusions. There is no pneumothorax. The heart is normal in size. The visualized osseous structures are within normal limits. RAD/Chest 1 View (Portable) IMPRESSION: No acute thoracic pathology. Electronically Signed: Sachin Duran MD at 15:55 EST ,
[2023-11-26 15:45] VITALS: BP 121/68; PULSE 115; RESP 20; TEMP 38; O2SAT 95
[2023-11-26 15:56] LABS: Absolute Lymphocyte Count 0.27 X10^3/uL (0.83-4.51); Absolute Neutrophil Count 2.9 X10^3/uL (2.0-7.7); Basophil# 0.01 X10^3/uL; Basophil% 0.3 % (0-1); Eosinophil# 0.03 X10^3/uL; Eosinophils% 0.9 % (0-5); Hematocrit 23.1 % (40-54); Hemoglobin 7.7 g/dL (13.0-16.5); Lymphocyte # 0.27 X10^3/ul (0.83-4.51); Lymphocyte % 8.2 % (19-41); Mean Corp Hgb Conc 33.3 g/dL (32-36); Mean Corpuscular Hgb 29.3 pg (27.0-32.0); Mean Corpuscular Volume 87.8 fL (80-94); Mean Platelet Vol. 10.3 fl (6.2-12.0); Monocyte# 0.05 X10^3/uL; Monocyte% 1.5 % (0-10); NRBC Flagged by Analyzer 0 % (0-5); Neutrophil # 2.91 X10^3/uL (2.7-7.7); Neutrophil % 87.9 % (47-70); POSITIVE DIFFERENTIAL YES; POSITIVE MORPHOLOGY YES; Platelet Count 164 K/mm3 (150-450); RBC Distribution Width CV 18.8 % (11.6-14.6); RBC Distribution Width SD 59.8 fl (35.1-43.9); Red Blood Count 2.63 M/mm3 (4.6-6.2); White Blood Count 3.3 K/mm3 (4.4-11.0)
[2023-11-26 15:57] LABS: Differential Indicated SCAN CRITERIA MET
[2023-11-26 16:06] LABS: International Normalized Ratio 1.2; Partial Thromboplast Time 38.9 Seconds (24.1-36.2); Prothrombin Time (Protime)PT. 15.5 SECONDS (11.7-14.9)
[2023-11-26 16:12] LABS: Differential Comment SCANNED
[2023-11-26 16:19] LABS: AST(SGOT) 46 U/L (15-37); Alanine Aminotransfer ALT/SGPT 36 U/L (16-61); Albumin, Serum 3.2 g/dL (3.2-5.0); Alkaline Phosphatase 51 U/L (45-117); Anion Gap 7 (5-15); BUN 28 mg/dL (7-18); BUN/Creat Ratio 17.3 RATIO (10-20); Calcium,Total 8.6 mg/dL (8.5-10.1); Chloride 108 mmol/L (98-107); Creatinine, Serum 1.62 mg/dL (0.70-1.30); EST Glomerular Filtration Rate 44 mL/min (>60); Est Glom Filt Rate - Afr Amer 53 mL/min (>60); Globulin 3.2 g/dL (2.2-4.2); Glucose 105 mg/dL (74-106); Potassium 3.3 mmol/L (3.5-5.1); Protein, Total 6.4 g/dL (6.4-8.2); Sodium Level 136 mmol/L (136-145); Troponin-I HS 26 pg/mL (3.0-78.0)
[2023-11-26 16:20] LABS: Lactic Acid 1.1 mmol/L (0.4-1.9)
[2023-11-26 16:45] VITALS: BP 124/55; PULSE 109; RESP 20; TEMP 37.4; O2SAT 97
[2023-11-26 17:30] VITALS: BP 123/63; PULSE 111; RESP 26; O2SAT 98
[2023-11-26] MEDS: Smz/Tmp Ds Tablet 1 TABLET PO (17:33)
[2023-11-26 17:40] VITALS: BP 123/63; PULSE 111; RESP 26; TEMP 37.3; O2SAT 98
== END 2023-11-26 17:41 | disposition home or self-care (01) ==
PROVIDERS: Emergency Provider Emergency Medicine; Visit Provider Emergency Medicine
DX: N39.0 Urinary tract infection, site not specified (principal); I48.91 Unspecified atrial fibrillation; E11.9 Type 2 diabetes mellitus without complications; Z87.891 Personal history of nicotine dependence; K21.9 Gastro-esophageal reflux disease without esophagitis; E78.00 Pure hypercholesterolemia, unspecified; I10 Essential (primary) hypertension; Z79.899 Other long term (current) drug therapy
CPT/HCPCS: 71045; 80053; 81001; 83605; 84443; 84484; 85025; 85610; 85730; 87040; 87077; 87086; 87088; 87186; 87631; 93005; 96360; 96361; 99284; J7030; A4216

== ENCOUNTER 2023-12-13 23:05 | Emergency (ER) | payer MEDICARE, SELFPAY ==
[2023-12-13] VITALS (7 sets, daily range): BP systolic 114–141; BP diastolic 65–74; PULSE 85–117; RESP 17–38; TEMP 37.2; O2SAT 97–99; BMI 24.1
--- NOTE | 2023-12-13 23:27 | CT_ITS ---
EXAM: CT ANGIOGRAPHY CHEST WITHOUT AND WITH INTRAVENOUS CONTRAST CLINICAL INDICATION: chest pain TECHNIQUE: Helically acquired angiography images were obtained of the chest without and with intravenous contrast. This CT exam was performed using one or more of the following dose reduction techniques: automated exposure control, adjustment of the mA and/or kV according to patient size, and/or use of iterative reconstruction technique. MIP reconstructed images were created and reviewed. CONTRAST: IV 100mL Isovue-370 RADIATION DOSE: CTDIvol = 30.54 mGy, DLP = 497.59 mGy-cm COMPARISON: CT chest abdomen and pelvis 09/06/2023 FINDINGS: PULMONARY ARTERIES: Unremarkable. Normal in caliber. No evidence of pulmonary embolism. AORTA: Mild atherosclerotic changes of the thoracic aorta but no dissection or dilation. GREAT VESSELS OF AORTIC ARCH: Unremarkable. Normal in caliber. No evidence of dissection. LUNGS AND PLEURAL SPACES: Bibasilar scarring and bronchiectasis. No acute airspace disease. No mass. No pleural effusion or thickening. No pneumothorax. HEART: Small pericardial effusion measuring up to 8 mm in thickness. Coronary artery calcifications. Heart size is normal. MEDIASTINUM: Unremarkable. No mediastinal or hilar adenopathy. Esophagus is unremarkable. No hiatal hernia. THYROID: Unremarkable. No thyroid lesions. BONES/JOINTS: Degenerative changes of the spine. No suspicious lytic or blastic abnormality. CT/CTA Chest W/WO Contrast IMPRESSION: 1. Small pericardial effusion measuring up to 8 mm in thickness. 2. Bibasilar scarring and bronchiectasis. 3. No pulmonary embolism. Electronically Signed: Navneet Tanner MD at 0:49 EDT ,
[2023-12-13] MEDS: 0.9% Normal Saline (1000mL) 1,000 ML 999 ML IV (23:34)
[2023-12-13] MEDS: Morphine 2 MG/ML Syringe IV (23:35)
[2023-12-13] MEDS: Ondansetron 4 MG/2 ML Vial IV (23:35)
[2023-12-13] MEDS: Metoprolol Tartrate 5 MG/5 ML Vial IV (23:35)
[2023-12-13 23:42] LABS: Absolute Lymphocyte Count 0.65 X10^3/uL (0.83-4.51); Absolute Neutrophil Count 6.2 X10^3/uL (2.0-7.7); Basophil# 0.03 X10^3/uL; Basophil% 0.4 % (0-1); Eosinophil# 0.02 X10^3/uL; Eosinophils% 0.3 % (0-5); Hematocrit 25.8 % (40-54); Hemoglobin 8.1 g/dL (13.0-16.5); Lymphocyte # 0.65 X10^3/ul (0.83-4.51); Lymphocyte % 8.7 % (19-41); Mean Corp Hgb Conc 31.4 g/dL (32-36); Mean Corpuscular Hgb 30.1 pg (27.0-32.0); Mean Corpuscular Volume 95.9 fL (80-94); Mean Platelet Vol. 9.6 fl (6.2-12.0); Monocyte# 0.41 X10^3/uL; Monocyte% 5.5 % (0-10); NRBC Flagged by Analyzer 0 % (0-5); Neutrophil # 6.23 X10^3/uL (2.7-7.7); Neutrophil % 83.8 % (47-70); POSITIVE MORPHOLOGY YES; Platelet Count 454 K/mm3 (150-450); RBC Distribution Width CV 21.7 % (11.6-14.6); RBC Distribution Width SD 75.3 fl (35.1-43.9); Red Blood Count 2.69 M/mm3 (4.6-6.2); White Blood Count 7.4 K/mm3 (4.4-11.0)
[2023-12-13 23:45] LABS: Differential Indicated SCAN CRITERIA MET
[2023-12-13 23:46] LABS: International Normalized Ratio 1.2; Prothrombin Time (Protime)PT. 15.1 SECONDS (11.7-14.9)
[2023-12-13 23:47] LABS: Partial Thromboplast Time 29.1 Seconds (24.1-36.2)
[2023-12-14] VITALS (20 sets, daily range): BP systolic 104–116; BP diastolic 59–67; PULSE 77–102; RESP 15–24; TEMP 36.9; O2SAT 92–100
[2023-12-14 00:02] LABS: Anion Gap 9 (5-15); BUN 25 mg/dL (7-18); BUN/Creat Ratio 16.7 RATIO (10-20); Calcium,Total 8.9 mg/dL (8.5-10.1); Chloride 105 mmol/L (98-107); EST Glomerular Filtration Rate 48 mL/min (>60); Est Glom Filt Rate - Afr Amer 58 mL/min (>60); Estimated Creatinine Clearance 36.11 ml/min; Glucose 139 mg/dL (74-106); Magnesium 1.8 mg/dL (1.6-2.6); Potassium 3.8 mmol/L (3.5-5.1); Sodium Level 138 mmol/L (136-145); Thyroid Stim Hormone (TSH) 1.45 uIU/mL (0.358-3.74); Troponin-I HS 44 pg/mL (3.0-78.0)
[2023-12-14 00:15] LABS: Anisocytosis 2+
[2023-12-14] MEDS: Morphine 4 MG/ML Syringe IV (00:37)
[2023-12-14] MEDS: Orphenadrine 60 MG/2 ML Ampul IV (00:37)
[2023-12-14 00:49] LABS: AST(SGOT) 78 U/L (15-37); Alanine Aminotransfer ALT/SGPT 36 U/L (16-61); Albumin, Serum 3.5 g/dL (3.2-5.0); Alkaline Phosphatase 78 U/L (45-117); Bilirubin, Direct 0.28 mg/dL (0.00-0.30); Globulin 3.3 g/dL (2.2-4.2); Lipase 21 U/L (13-75); Protein, Total 6.8 g/dL (6.4-8.2)
[2023-12-14 02:05] LABS: Troponin-I HS 44 pg/mL (3.0-78.0)
--- NOTE | 2023-12-14 02:26 | EX.ED.DYSGE1 ---
HPI History of Present Illness Chief Complaint: Chest Pain Informant: patient and spouse/S.O. Narrative Narrative: Patient is an 83-year-old male with past medical history of type 2 diabetes hypertension as well as brain mass. Patient states that he has noticed some pain in his mid upper chest that is worse when he lies down. He denies any associated nausea vomiting or shortness of breath. He denies any recent trauma and he states there is been no sick exposures or fevers or chills. He states that home medications are not controlling the pain and with concern this could be cardiac in nature he presents for evaluation [facility] Medical History Alcohol use Anemia Arthritis Back pain Bladder disease Cancer Cardiology follow-up encounter Diabetes Dietary restriction Former smoker GERD (gastroesophageal reflux disease) High cholesterol History of echocardiogram History of edema History of esophageal dilatation History of gastrointestinal hemorrhage History of GI bleed History of prostate cancer History of renal disease History of stress test Hypertension Injury of head and neck Insulin dependent diabetes mellitus Kidney disease Leg cramps Wears dentures Wears glasses Home Medications amlodipine 5 mg tablet 5 mg PO DAILY 11/17/13 [History Last Taken 11/24/23] glimepiride 2 mg tablet 4 mg PO DAILY 11/17/13 [History Last Taken Unknown] nitroglycerin 0.4 mg sublingual tablet 0.4 mg sublingual Q5M PRN Chest Pain 11/17/13 [History Last Taken Unknown] sildenafil 100 mg tablet (Viagra) 100 mg PO PRN PRN SEXUAL USE 11/17/13 [History Last Taken Unknown] ergocalciferol (vitamin D2) 1,250 mcg (50,000 unit) capsule 1 tab PO FLETCHER 05/02/19 [History Last Taken Unknown] fenofibrate 160 mg tablet 160 mg PO DAILY 05/02/19 [History Last Taken Unknown] dulaglutide 0.75 mg/0.5 mL subcutaneous pen injector (Trulicity) 0.75 mg subcut FLETCHER 09/09/21 [History Last Taken Unknown] pantoprazole 40 mg tablet,delayed release 40 mg PO DAILY 09/09/21 [History Last Taken 03/28/23] rosuvastatin 40 mg tablet 40 mg PO DAILY 09/09/21 [History Last Taken Unknown] dapagliflozin propanediol 10 mg tablet (Farxiga) 10 mg PO DAILY 03/19/23 [History Last Taken Unknown] insulin glargine U-300 conc 300 unit/mL (3 mL) subcutaneous pen (Toujeo Max U-300 SoloStar) 44 unit subcut DAILY 03/19/23 [History Last Taken Unknown] oxybutynin chloride 10 mg tablet,extended release 24 hr 10 mg PO DAILY #90 tabs 03/28/23 [Rx Last Taken Unknown] folic acid 1 mg tablet 1 mg PO DAILY 12/13/23 [History Last Taken Unknown] oxycodone-acetaminophen 5 mg-325 mg tablet (Percocet) 1 tab PO Q6H PRN pain 3 days #12 tabs 12/14/23 [Rx Last Taken Unknown] Allergy/AdvReac Type Severity Reaction Status Date / Time chlorhexidine Allergy Rash Verified 12/13/23 23:07 Family History Other COPD (chronic obstructive pulmonary disease) Surgical History History of AAA (abdominal aortic aneurysm) repair History of cardiac catheterization History of coronary artery stent placement History of herniorrhaphy History of transurethral resection of bladder tumor (TURBT) Social History Smoking Status: Former smoker alcohol intake: current alcohol intake frequency: 0-2 drinks per day Alcohol type: hard liquor ROS ROS ED Constitutional Constitutional ED: Denies chills or fever(s) Eyes Eyes: Denies change in vision ENT ENT ED: Denies sore throat Cardiovascular Cardiovascular: Reports chest pain and racing heartbeat Respiratory/Chest Respiratory/Chest: Denies cough or dyspnea Gastrointestinal Gastrointestinal: Denies abdominal pain, diarrhea, nausea or vomiting Genitourinary Genitourinary ED: Denies dysuria Musculoskeletal Musculoskeletal: Denies back pain or myalgias Integumentary Denies rash Neurologic Neurologic: Denies headache(s) Hematologic/Lymphatic Hematologic/Lymphatic: Denies easy bleeding or easy bruising EXAM Physical Exam Const Vital Signs: 12/13/23 23:08 12/13/23 23:11 12/13/23 23:15 Temperature 99.0 F 99.0 F Temperature Source Oral Oral Pulse Rate 117 H 114 H Respiratory Rate 17 28 H 38 H Blood Pressure 141/72 H 141/72 H 129/74 H Blood Pressure Mean 95 95 90 Pulse Ox 97 98 98 Oxygen Delivery Method Room Air Room Air 12/13/23 23:20 12/13/23 23:30 12/13/23 23:40 Temperature Temperature Source Pulse Rate 112 H 107 H 89 Respiratory Rate 34 H 21 H 20 H Blood Pressure 127/73 H 114/65 Blood Pressure Mean 87 81 Pulse Ox 97 98 99 Oxygen Delivery Method 12/13/23 23:59 12/14/23 00:00 12/14/23 00:10 Temperature Temperature Source Pulse Rate 85 84 86 Respiratory Rate 18 16 20 H Blood Pressure 109/64 Blood Pressure Mean 79 Pulse Ox 99 100 100 Oxygen Delivery Method 12/14/23 00:15 12/14/23 00:20 12/14/23 00:30 Temperature Temperature Source Pulse Rate 88 87 89 Respiratory Rate 19 H 18 15 Blood Pressure 116/59 L 112/59 L Blood Pressure Mean 76 75 Pulse Ox 99 99 95 Oxygen Delivery Method 12/14/23 00:40 12/14/23 00:45 12/14/23 00:50 Temperature Temperature Source Pulse Rate 94 93 92 Respiratory Rate 22 H 22 H 19 H Blood Pressure 109/62 Blood Pressure Mean 77 Pulse Ox 98 92 94 Oxygen Delivery Method 12/14/23 01:00 12/14/23 01:10 12/14/23 01:15 Temperature Temperature Source Pulse Rate 91 91 77 Respiratory Rate 19 H 17 19 H Blood Pressure 104/65 107/59 L Blood Pressure Mean 77 73 Pulse Ox 93 93 92 Oxygen Delivery Method 12/14/23 01:20 12/14/23 01:30 12/14/23 01:40 Temperature Temperature Source Pulse Rate 98 98 Respiratory Rate 18 18 Blood Pressure 104/59 L Blood Pressure Mean 73 Pulse Ox 93 92 Oxygen Delivery Method 12/14/23 01:45 12/14/23 01:50 12/14/23 02:00 Temperature Temperature Source Pulse Rate 100 99 95 Respiratory Rate 23 H 23 H 24 H Blood Pressure 110/63 112/67 Blood Pressure Mean 77 80 Pulse Ox 92 93 93 Oxygen Delivery Method 12/14/23 02:10 12/14/23 02:15 12/14/23 02:38 Temperature 98.4 F Temperature Source Pulse Rate 92 97 102 H Respiratory Rate 19 H 21 H 20 H Blood Pressure 116/67 112/62 Blood Pressure Mean 80 78 Pulse Ox 93 93 93 Oxygen Delivery Method Positive well nourished and well developed General Appearance ED: well developed HEENT HEENT Narrative: Normocephalic atraumatic Eyes PERRL and EOMs intact bilaterally General Eye ED: Negative for scleral icterus Neck supple Neck Narrative: No nuchal rigidity or meningeal signs noted Chest Wall Chest Narrative: There is reproducible anterior chest wall pain on palpation without bony deformity or crepitance Resp normal respiratory effort and clear to auscultation bilaterally Cardio Rate: other Other Details: Patient has an irregularly irregular rhythm with tachycardic rate consistent with atrial fibrillation with RVR Radial and carotid pulses are equal and symmetric GI normal to inspection, nondistended, normoactive bowel sounds, non-tender, non-distended and no masses GI Narrative: No voluntary guarding or rigidity or pulsatile mass Auscultation: normoactive bowel sounds Palpation: soft Back/Spine no CVA tenderness Extremity normal to inspection Extremity Narrative: No asymmetric edema no pitting edema negative Homans' sign bilaterally Neuro oriented x3, CN's II-XII intact bilaterally and no sensory deficits noted Sensorium / Orientation: alert Motor Exam: strength 5/5 throughout Psych mental status grossly normal Skin no rashes or lesions noted and No no wounds General Skin Exam: Negative for jaundice MDM MDM MDM Narrative Medical decision making narrative: Patient arrived to ER in A-fib with RVR but chart review reveals he does have a past medical history of this. With his report of chest discomfort this could be related to acute coronary syndrome versus pneumonia versus pneumothorax versus pulmonary embolus versus dissection versus the cardiac dysrhythmia. Secondary to his basic labs were obtained. Patient's initial and delta troponin were normal at 44 going against acute coronary syndrome. CTA revealed no PE or dissection but it did show a small pericardial effusion. After treatment in the ER the patient has had improvement of his pain and vitals have improved as well and he spontaneously converted to normal sinus rhythm. With the small pericardial effusion there is no obvious findings to suggest tamponade by physical exam or vital signs. Therefore this time I feel patient is otherwise safe for discharge with improvement of his pain no signs of acute coronary syndrome no PE or dissection and no signs of tamponade and he can follow-up with his heart doctor and/or family doctor on an outpatient basis. History & Record Review Discussion w/independent historian: Patient and Significant other Lab Data Attestation: I reviewed the patient's lab results. Labs: Laboratory Results - last 24 hr 12/13/23 12/14/23 23:15 01:43 WBC 7.4 RBC 2.69 L Hgb 8.1 L Hct 25.8 L MCV 95.9 H MCH 30.1 MCHC 31.4 L RDW Std Deviation 75.3 H RDW Coeff of Jeanette 21.7 H Plt Count 454 H MPV 9.6 Immature Gran % (Auto) 1.300 H Neut % (Auto) 83.8 H Lymph % (Auto) 8.7 L [place] % (Auto) 5.5 Eos % (Auto) 0.3 Baso % (Auto) 0.4 Absolute Neuts (auto) 6.2 Absolute Lymphs (auto) 0.65 L Nucleated RBC % 0 Anisocytosis 2+ PT 15.1 H INR 1.2 APTT 29.1 Sodium 138 Potassium 3.8 Chloride 105 Carbon Dioxide 24.0 Anion Gap 9 BUN 25 H Creatinine 1.50 H Estim Creat Clear Calc 36.11 Est GFR (MDRD) Af Amer 58 L Est GFR (MDRD) Non-Af 48 L BUN/Creatinine Ratio 16.7 Glucose 139 H Calcium 8.9 Magnesium 1.8 Total Bilirubin 0.60 Direct Bilirubin 0.28 AST 78 H ALT 36 Alkaline Phosphatase 78 Troponin I High Sens 44 44 Total Protein 6.8 Albumin 3.5 Globulin 3.3 Lipase 21 TSH 1.45 Radiography Diagnostic Testing: Clinical Impression(s) from Imaging Studies Chest CTA 12/13/23 23:27 IMPRESSION: 1. Small pericardial effusion measuring up to 8 mm in thickness. 2. Bibasilar scarring and bronchiectasis. 3. No pulmonary embolism. Electronically Signed: Navneet Tanner MD at 0:49 EDT , Discharge Plan Triage Chief Complaint: Chest Pain ED Provider: T[address] Dx/Rx/DC Orders Clinical Impression: Pericardial effusion, Type II diabetes mellitus, Brain mass, Paroxysmal atrial fibrillation with rapid ventricular response Instructions: Understanding Pericardial Effusion Prescriptions: New oxycodone-acetaminophen [Percocet] 5-325 mg tablet 1 tab PO Q6H PRN (Reason: pain) 3 Days Qty: 12 0RF No Action amlodipine 5 MG tablet 5 mg PO DAILY sildenafil [Viagra] 100 MG tablet 100 mg PO PRN PRN (Reason: SEXUAL USE) glimepiride 2 MG tablet 4 mg PO DAILY nitroglycerin 0.4 MG tablet 0.4 mg sublingual Q5M PRN (Reason: Chest Pain) ergocalciferol (vitamin D2) 50,000 U capsule 1 tab PO FLETCHER fenofibrate 160 MG tablet 160 mg PO DAILY pantoprazole 40 mg tablet,delayed release (DR/EC) 40 mg PO DAILY rosuvastatin 40 mg tablet 40 mg PO DAILY Trulicity 0.75 mg/0.5 mL Pen Injector 0.75 mg SUBCUT FLETCHER dapagliflozin propanediol [Farxiga] 10 mg Tablet 10 mg PO DAILY insulin glargine U-300 conc [Toujeo Max U-300 SoloStar] 300 unit/mL (3 mL) Insulin Pen 44 unit SUBCUT DAILY oxybutynin chloride 10 mg tablet extended release 24hr 10 mg PO DAILY Qty: 90 3RF folic acid 1 mg tablet 1 mg PO DAILY Primary Care Provider: Maria Eugenia Garcia Referrals: Maria Eugenia Garcia, [Primary Care Provider] - Activity Restrictions/Additional Instructions: Your CT scan of the chest revealed a small pericardial effusion. 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 If you have any further concerns or worsening of symptoms please return to the hospital for repeat evaluation Disposition Disposition: Home, Self Care Discharge Date/Time: 12/14/23 02:49
== END 2023-12-14 02:49 | disposition home or self-care (01) ==
PROVIDERS: Emergency Provider Emergency Medicine; Visit Provider Emergency Medicine
DX: I31.39 Other pericardial effusion (noninflammatory) (principal); I48.0 Paroxysmal atrial fibrillation; E11.9 Type 2 diabetes mellitus without complications; Z79.4 Long term (current) use of insulin; Z87.891 Personal history of nicotine dependence; G93.9 Disorder of brain, unspecified; J34.89 Other specified disorders of nose and nasal sinuses; Z95.5 Presence of coronary angioplasty implant and graft; Z85.46 Personal history of malignant neoplasm of prostate
CPT/HCPCS: 71275; 80048; 80076; 83690; 83735; 84443; 84484; 85025; 85610; 85730; 93005; 96361; 96374; 96375; 96376; 99283; J7030; Q9967; A4216; J2405

== ENCOUNTER 2024-01-07 11:34 | Inpatient (IN) | payer MEDICARE, SELFPAY ==
[2024-01-07] VITALS (11 sets, daily range): BP systolic 101–133; BP diastolic 56–83; PULSE 88–101; RESP 14–18; TEMP 36.4–37.2; O2SAT 95–100; BMI 23.8
--- NOTE | 2024-01-07 11:59 | EDS_ITS ---
HPI History of Present Illness Chief Complaint: Fever Informant: patient Onset/Context/Timing Onset: Days (4) Context: Gradual Onset Timing: Continuous Quality: Dry cough Location: Chest Worsened by: Laying down Relieved by: Sitting up Narrative Narrative: Patient presents with cough and fever for the past 4 days. Patient states his fever has been constant over the last 4 days. Patient states he is unable to cough up any sputum but it feels like he needs to cough up sputum. Patient states his cough is worse with laying down and better with sitting up. Patient states he had chemotherapy 1 week ago. Patient states he was transfused 2 units of blood 4 days ago. Patient took a home COVID test which was negative. Patient denies any chest pain or shortness of breath. Patient also states he had a recent stress test which was negative. [facility] Medical History (Updated 01/07/24 @ 14:[address] Jeremias Morse, ) Alcohol use Anemia Arthritis Back pain Bladder disease Cancer Cardiology follow-up encounter Diabetes Dietary restriction Former smoker GERD (gastroesophageal reflux disease) High cholesterol History of echocardiogram History of edema History of esophageal dilatation History of gastrointestinal hemorrhage History of GI bleed History of prostate cancer History of renal disease History of stress test Hypertension Injury of head and neck Insulin dependent diabetes mellitus Kidney disease Leg cramps Wears dentures Wears glasses Home Medications amlodipine 5 mg tablet 5 mg PO DAILY 11/17/13 [History Last Taken 11/24/23] glimepiride 2 mg tablet 4 mg PO DAILY 11/17/13 [History Last Taken Unknown] nitroglycerin 0.4 mg sublingual tablet 0.4 mg sublingual Q5M PRN Chest Pain 11/17/13 [History Last Taken Unknown] sildenafil 100 mg tablet (Viagra) 100 mg PO PRN PRN SEXUAL USE 11/17/13 [History Last Taken Unknown] ergocalciferol (vitamin D2) 1,250 mcg (50,000 unit) capsule 1 tab PO FLETCHER 05/02/19 [History Last Taken Unknown] fenofibrate 160 mg tablet 160 mg PO DAILY 05/02/19 [History Last Taken Unknown] dulaglutide 0.75 mg/0.5 mL subcutaneous pen injector (Trulicity) 0.75 mg subcut FLETCHER 09/09/21 [History Last Taken Unknown] pantoprazole 40 mg tablet,delayed release 40 mg PO DAILY 09/09/21 [History Last Taken 03/28/23] rosuvastatin 40 mg tablet 40 mg PO DAILY 09/09/21 [History Last Taken Unknown] dapagliflozin propanediol 10 mg tablet (Farxiga) 10 mg PO DAILY 03/19/23 [History Last Taken Unknown] insulin glargine U-300 conc 300 unit/mL (3 mL) subcutaneous pen (Toujeo Max U- 300 SoloStar) 44 unit subcut DAILY 03/19/23 [History Last Taken Unknown] oxybutynin chloride 10 mg tablet,extended release 24 hr 10 mg PO DAILY #90 tabs 03/28/23 [Rx Last Taken Unknown] folic acid 1 mg tablet 1 mg PO DAILY 12/13/23 [History Last Taken Unknown] oxycodone-acetaminophen 5 mg-325 mg tablet (Percocet) 1 tab PO Q6H PRN pain 3 days #12 tabs 12/14/23 [Rx Last Taken Unknown] Allergy/AdvReac Type Severity Reaction Status Date / Time chlorhexidine Allergy Rash Verified 01/07/24 11:36 Family History Other COPD (chronic obstructive pulmonary disease) Surgical History History of AAA (abdominal aortic aneurysm) repair History of cardiac catheterization History of coronary artery stent placement History of herniorrhaphy History of transurethral resection of bladder tumor (TURBT) Social History Smoking Status: Former smoker alcohol intake: current alcohol intake frequency: 0-2 drinks per day Alcohol type: hard liquor ROS ROS ED Constitutional Constitutional ED: Reports fever(s); Denies chills Eyes Eyes: Denies blurry vision or change in vision ENT ENT ED: Denies rhinorrhea or sore throat Cardiovascular Cardiovascular: Denies chest pain or palpitations Respiratory/Chest Respiratory/Chest: Reports cough; Denies dyspnea Gastrointestinal Gastrointestinal: Denies nausea or vomiting Genitourinary Genitourinary ED: Denies dysuria or hematuria Musculoskeletal Musculoskeletal: Denies back pain or neck pain Integumentary Denies abscess or rash Neurologic Neurologic: Denies headache(s) or weakness Allergic/Immunologic Allergic/Immunologic ED: Denies mouth swelling or urticaria EXAM Physical Exam Const Vital Signs: 01/07/24 11:36 01/07/24 11:38 01/07/24 11:38 Temperature 97.5 F L 97.5 F L 97.5 F L Temperature Source Temporal Temporal Temporal Pulse Rate 96 96 96 Respiratory Rate 14 14 14 Respiratory Effort Respiratory Depth Respiratory Pattern Blood Pressure 104/64 104/64 104/64 Blood Pressure Mean 77 77 77 Pulse Ox 100 99 99 Oxygen Delivery Method Room Air Room Air Room Air 01/07/24 12:23 01/07/24 12:24 01/07/24 12:25 Temperature 98.8 F Temperature Source Oral Pulse Rate Respiratory Rate Respiratory Effort Normal Normal Respiratory Depth Normal Respiratory Pattern Normal Irregular Blood Pressure Blood Pressure Mean Pulse Ox Oxygen Delivery Method 01/07/24 12:38 01/07/24 13:00 01/07/24 14:00 Temperature 98.9 F 98.2 F 98.9 F Temperature Source Oral Oral Oral Pulse Rate 89 88 89 Respiratory Rate 16 16 16 Respiratory Effort Respiratory Depth Respiratory Pattern Blood Pressure 117/68 115/68 107/72 Blood Pressure Mean 84 83 83 Pulse Ox 97 97 98 Oxygen Delivery Method Room Air Room Air Room Air Positive well nourished and well developed General Appearance ED: well developed and NAD HEENT Reports moist mucous membranes Neck supple and no JVD Resp normal respiratory effort Auscultation: rales right base Cardio regular rate and regular rhythm GI non-tender and non-distended Palpation: soft Neuro oriented x3, CN's II-XII intact bilaterally and no sensory deficits noted Sensorium / Orientation: alert Motor Exam: strength 5/5 throughout Psych mental status grossly normal MDM MDM MDM Narrative Medical decision making narrative: Differential diagnosis includes pneumonia, viral illness, bronchitis, transfusion reaction, neutropenic fever, sepsis, and upper respiratory infection. Chest x-ray will be obtained to assess for pneumonia. COVID-19, influenza, and RSV PCR will be obtained to assess for viral infection. CBC will be obtained to assess for leukocytosis, neutropenia, and anemia. Basic metabolic profile will be obtained to assess for electrolyte abnormality and renal function. Serum lactate will be obtained to assess for sepsis. Urinalysis will be obtained to assess for urinary tract infection. Blood cultures will be obtained to assess for sepsis. Urine culture will be obtained to assess for urinary tract infection. Lab Data Attestation: I reviewed the patient's lab results. Lab results narrative: CBC was reviewed. White blood cell count was low at 1.2. The hemoglobin was 8.6 and hematocrit was 26.4. Platelets were also low at 68. There are 8 bands noted. There is 1 myelocyte noted. The remaining differential is within normal limits. Absolute neutrophil count was 0.9. COVID-19 PCR was reviewed and was negative. Influenza PCR was reviewed and was negative for influenza A and influenza B. RSV PCR was reviewed and was negative. Labs: Laboratory Results - last 24 hr 01/07/24 12:30 WBC 1.2 L* RBC 2.72 L Hgb 8.6 L Hct 26.4 L MCV 97.1 H MCH 31.6 MCHC 32.6 RDW Std Deviation 69.3 H RDW Coeff of Jeanette 20.1 H Plt Count 68 L MPV 10.9 Neut % (Auto) Not Reportable Absolute Neuts (auto) 0.9 L Absolute Lymphs (auto) 0.24 L Total Counted 100 Neutrophils % (Manual) 69 Band Neutrophils % 8 H Lymphocytes % (Manual) 20 Monocytes % (Manual) 2 Myelocytes % 1 H Diff Path Review May foll Platelet Estimate MOD DEC Anisocytosis 2+ Microcytosis 1+ Macrocytosis 1+ Sodium 134 L Potassium 3.4 L Chloride 103 Carbon Dioxide 23.0 Anion Gap 8 BUN 22 H Creatinine 1.48 H Est GFR (MDRD) Af Amer 59 L Est GFR (MDRD) Non-Af 49 L BUN/Creatinine Ratio 14.9 Glucose 215 H Lactic Acid 1.1 Calcium 8.5 Radiography Chest X-Ray - ED: 2 View, Read by ED Physician, Read by Radiologist and Chronic Changes Diagnostic Testing: Clinical Impression(s) from Imaging Studies Chest X-Ray 01/07/24 12:52 IMPRESSION: Bibasilar scarring/atelectasis. Electronically Signed: Eliecer Reyes MD at 13:40 EDT , PA and lateral chest x-ray was obtained. There are 2 views. On my independent interpretation, lung nielson show bibasilar scarring/atelectasis. There is normal cardiac silhouette. Bony thorax is normal. There is no acute process noted. Radiologist also interpreted the x-ray and agrees. Treatment and Re-Evaluation :: Patient was advised of his findings. Case was discussed with Dr. Hwang. He agrees with Charan.. He also recommended giving the patient a dose of Granix. He recommended admitting the patient to the hospital overnight and repeating blood counts tomorrow. Patient was advised of the need for hospitalization. Case will be discussed with the hospitalist for admission. He will admit the patient to [facility]. Patient understood and was agreeable with the plan. All questions were answered. Discharge Plan Dx/Rx/DC Orders Clinical Impression: Bladder cancer, History of prostate cancer, Neutropenic fever, Brain mass, History of esophageal cancer Disposition Disposition: Acute Care Hospital [facility]
[2024-01-07 12:45] LABS: Hematocrit 26.4 % (40-54); Hemoglobin 8.6 g/dL (13.0-16.5); Mean Corp Hgb Conc 32.6 g/dL (32-36); Mean Corpuscular Hgb 31.6 pg (27.0-32.0); Mean Corpuscular Volume 97.1 fL (80-94); Mean Platelet Vol. 10.9 fl (6.2-12.0); POSITIVE COUNT YES; POSITIVE DIFFERENTIAL YES; POSITIVE MORPHOLOGY YES; Platelet Count 68 K/mm3 (150-450); RBC Distribution Width CV 20.1 % (11.6-14.6); RBC Distribution Width SD 69.3 fl (35.1-43.9); Red Blood Count 2.72 M/mm3 (4.6-6.2)
[2024-01-07 12:48] LABS: Differential Indicated MANUAL DIFF; White Blood Count 1.2 K/mm3 (4.4-11.0)
--- NOTE | 2024-01-07 12:52 | RAD_ITS ---
EXAM: XR CHEST, 2 VIEWS CLINICAL INDICATION: Fever, cough TECHNIQUE: Frontal and lateral views of the chest. COMPARISON: No relevant prior studies available. FINDINGS: LUNGS AND PLEURAL SPACES: Bibasilar linear scarring/atelectasis. HEART: Normal heart size. Coronary artery stent is noted. MEDIASTINUM: No mediastinal or hilar mass. BONES/JOINTS: No acute abnormality. RAD/Chest PA and Lateral IMPRESSION: Bibasilar scarring/atelectasis. Electronically Signed: Eliecer Reyes MD at 13:40 EDT ,
[2024-01-07 13:05] LABS: Anion Gap 8 (5-15); BUN 22 mg/dL (7-18); BUN/Creat Ratio 14.9 RATIO (10-20); Calcium,Total 8.5 mg/dL (8.5-10.1); Chloride 103 mmol/L (98-107); Creatinine, Serum 1.48 mg/dL (0.70-1.30); EST Glomerular Filtration Rate 49 mL/min (>60); Est Glom Filt Rate - Afr Amer 59 mL/min (>60); Glucose 215 mg/dL (74-106); Potassium 3.4 mmol/L (3.5-5.1); Sodium Level 134 mmol/L (136-145)
[2024-01-07 13:08] LABS: Lactic Acid 1.1 mmol/L (0.4-1.9)
[2024-01-07 13:39] LABS: Lymphocyte 20 % (19-41); Monocyte 2 % (0-10); Myelocyte 1 % (0-0); Neutrophil-Band 8 % (0-5); Neutrophil-Segmented 69 % (47-70); Total Cells Counted 100 (MANUAL DIFF)
[2024-01-07 13:40] LABS: Anisocytosis 2+; Macrocytosis 1+; Microcytosis 1+; Platelet Estimate MOD DEC (ADEQ)
[2024-01-07 13:42] LABS: Absolute Lymphocyte Count 0.24 X10^3/uL (0.83-4.51); Absolute Neutrophil Count 0.9 X10^3/uL (2.0-7.7)
--- NOTE | 2024-01-07 14:24 | NURSING ---
DR MOULTON FOR DR JEFFERY
[2024-01-07] MEDS: Piperacil/Tazobactam 4.5 GM in 0.9% Normal Saline (100mL MB+) 100 ML IV (14:44)
[2024-01-07] MEDS: TBO-FILGRASTIM 480 MCG/0.8 ML ML SC (14:44)
--- NOTE | 2024-01-07 14:46 | PCM.HP.STD ---
HPI - General General Date of Admission: 01/07/24 HPI Narrative JEANNA ALONZO, is a 83 M who presents to the hospital due to continued fevers. 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 He sees [facility] oncology and on Sunday he developed a temperature to about 101 to 104 degrees throughout the day and this has continued into this morning. He did receive a dose of chemotherapy last Sunday and then on Sunday was evaluated with a stress test and echo for new onset of A-fib and has a 30-day event monitor currently attached. Current infectious workup is pending, chest x-ray did not show any pneumonia, and viral testing was negative for COVID, flu, RSV. Blood blood cell count is 1.2 with an absolute neutrophil count of 0.9. He received a dose of Granix and Zosyn in the ER. [facility] Medical History (Updated 01/07/24 @ 16:07 by Flora Hopkins) Alcohol use Anemia Arthritis Atrial fibrillation Back pain Bladder disease Cancer Cardiology follow-up encounter Diabetes Dietary restriction Former smoker GERD (gastroesophageal reflux disease) High cholesterol History of echocardiogram History of edema History of esophageal dilatation History of gastrointestinal hemorrhage History of GI bleed History of prostate cancer History of renal disease History of stress test Hypertension Injury of head and neck Insulin dependent diabetes mellitus Kidney disease Leg cramps Wears dentures Wears glasses Home Medications amlodipine 5 mg tablet 5 mg PO DAILY 11/17/13 [History Last Taken 11/24/23] glimepiride 2 mg tablet 4 mg PO DAILY 11/17/13 [History Last Taken Unknown] nitroglycerin 0.4 mg sublingual tablet 0.4 mg sublingual Q5M PRN Chest Pain 11/17/13 [History Last Taken Unknown] sildenafil 100 mg tablet (Viagra) 100 mg PO PRN PRN SEXUAL USE 11/17/13 [History Last Taken Unknown] ergocalciferol (vitamin D2) 1,250 mcg (50,000 unit) capsule 1 tab PO FLETCHER 05/02/19 [History Last Taken Unknown] fenofibrate 160 mg tablet 160 mg PO DAILY 05/02/19 [History Last Taken Unknown] dulaglutide 0.75 mg/0.5 mL subcutaneous pen injector (Trulicity) 0.75 mg subcut FLETCHER 09/09/21 [History Last Taken Unknown] pantoprazole 40 mg tablet,delayed release 40 mg PO DAILY 09/09/21 [History Last Taken 03/28/23] rosuvastatin 40 mg tablet 40 mg PO DAILY 09/09/21 [History Last Taken Unknown] dapagliflozin propanediol 10 mg tablet (Farxiga) 10 mg PO DAILY 03/19/23 [History Last Taken Unknown] insulin glargine U-300 conc 300 unit/mL (3 mL) subcutaneous pen (Toujeo Max U-300 SoloStar) 44 unit subcut DAILY 03/19/23 [History Last Taken Unknown] oxybutynin chloride 10 mg tablet,extended release 24 hr 10 mg PO DAILY #90 tabs 03/28/23 [Rx Last Taken Unknown] folic acid 1 mg tablet 1 mg PO DAILY 12/13/23 [History Last Taken Unknown] oxycodone-acetaminophen 5 mg-325 mg tablet (Percocet) 1 tab PO Q6H PRN pain 3 days #12 tabs 12/14/23 [Rx Last Taken Unknown] dapagliflozin propanediol .ROUTE ask pcp 01/07/24 [History Last Taken Unknown] pantoprazole PO ask pcp 01/07/24 [History Last Taken Unknown] rosuvastatin .ROUTE ask pcp 01/07/24 [History Last Taken Unknown] valacyclovir .ROUTE ask pcp 01/07/24 [History Last Taken Unknown] Allergy/AdvReac Type Severity Reaction Status Date / Time chlorhexidine Allergy Rash Verified 01/07/24 11:36 Family History Other COPD (chronic obstructive pulmonary disease) Surgical History History of AAA (abdominal aortic aneurysm) repair History of cardiac catheterization History of coronary artery stent placement History of herniorrhaphy History of transurethral resection of bladder tumor (TURBT) Social History Smoking Status: Former smoker alcohol intake: current alcohol intake frequency: 0-2 drinks per day Alcohol type: hard liquor ROS Constitutional Constitutional: Reports fever(s); Denies chills, fatigue or malaise Eyes Eyes: Denies blurry vision ENT HEENT: Denies headache(s) or nasal discharge Cardiovascular Cardiovascular: Denies chest pain, dyspnea on exertion or syncope Respiratory/Chest Respiratory/Chest: Denies cough, shortness of breath at rest or shortness of breath with exertion Gastrointestinal Gastrointestinal: Denies constipation, diarrhea, nausea or vomiting Genitourinary Genitourinary: Denies dysuria Neurologic Neurologic: Denies focal weakness, numbness or tremor(s) Psychiatric Psychiatric: Denies anxiety or depression Vital Signs Vital Signs Vital Signs: 01/07/24 11:36 01/07/24 11:38 01/07/24 11:38 Temperature 97.5 F L 97.5 F L 97.5 F L Temperature Source Temporal Temporal Temporal Pulse Rate 96 96 96 Respiratory Rate 14 14 14 Respiratory Effort Respiratory Depth Respiratory Pattern Blood Pressure 104/64 104/64 104/64 Blood Pressure Mean 77 77 77 Pulse Ox 100 99 99 Oxygen Delivery Method Room Air Room Air Room Air 01/07/24 12:23 01/07/24 12:24 01/07/24 12:25 Temperature 98.8 F Temperature Source Oral Pulse Rate Respiratory Rate Respiratory Effort Normal Normal Respiratory Depth Normal Respiratory Pattern Normal Irregular Blood Pressure Blood Pressure Mean Pulse Ox Oxygen Delivery Method 01/07/24 12:38 01/07/24 13:00 01/07/24 14:00 Temperature 98.9 F 98.2 F 98.9 F Temperature Source Oral Oral Oral Pulse Rate 89 88 89 Respiratory Rate 16 16 16 Respiratory Effort Respiratory Depth Respiratory Pattern Blood Pressure 117/68 115/68 107/72 Blood Pressure Mean 84 83 83 Pulse Ox 97 97 98 Oxygen Delivery Method Room Air Room Air Room Air Physical Exam Narrative General: Alert, Oriented x3, Cooperative, No apparent distress HEENT: Atraumatic, PERRLA, EOMI, Normocephalic Oral: Moist Mucosa Neck: Supple, No JVD Lungs: Diminished, Normal air movement, No rhonchi, No wheeze, No rales Cardiovascular: Regular rate, Regular Rhythm, Normal S1, Normal S2, No murmurs Abdomen: Soft, Non Tender, Non-Distended, No Hepato-splenomegaly Extremities: No edema, Capillary Refill Less than 3 Seconds Skin: No rashes, No breakdown Musculoskeletal: No Tenderness to Palpation of Joints or Extremities Neurological: No focal neurological deficits, Motor Exam 5/5 strength throughout, Sensory exam intact to light touch and pain Psych/Mental Status: Normal Affect, Appropriate Results Lab / Micro Data 01/07/24 12:30 01/07/24 12:30 Labs: Laboratory Results - last 24 hr 01/07/24 12:30: WBC 1.2 L*, RBC 2.72 L, Hgb 8.6 L, Hct 26.4 L, MCV 97.1 H, MCH 31.6, MCHC 32.6, RDW Std Deviation 69.3 H, RDW Coeff of Jeanette 20.1 H, Plt Count 68 L, MPV 10.9, Neut % (Auto) Not Reportable, Absolute Neuts (auto) 0.9 L, Absolute Lymphs (auto) 0.24 L, Total Counted 100, Neutrophils % (Manual) 69, Band Neutrophils % 8 H, Lymphocytes % (Manual) 20, Monocytes % (Manual) 2, Myelocytes % 1 H, Diff Path Review May foll, Platelet Estimate MOD DEC, Anisocytosis 2+, Microcytosis 1+, Macrocytosis 1+, Sodium 134 L, Potassium 3.4 L, Chloride 103, Carbon Dioxide 23.0, Anion Gap 8, BUN 22 H, Creatinine 1.48 H, Est GFR (MDRD) Af Amer 59 L, Est GFR (MDRD) Non-Af 49 L, BUN/Creatinine Ratio 14.9, Glucose 215 H, Lactic Acid 1.1, Calcium 8.5 Micro: Microbiology 01/07/24 12:40 Mucosa - Nose SARS-CoV-2, Influenza & RSV (PCR) - Final Imaging Radiology Impression Chest X-Ray 01/07/24 12:52 IMPRESSION: Bibasilar scarring/atelectasis. Electronically Signed: Eliecer Reyes MD at 13:40 EDT , Assessment & Plan Assessment/Plan (1) Neutropenic fever: PLAN: Plan 1. Neutropenic fever in the setting of chemotherapy about a week ago for multiple different primary cancers and metastatic lesions to the brain ? Will continue with Zosyn and daily Granix until there is a response from elevated white blood cell count ? Blood cultures are pending and he has been unable to give a urine sample yet, however a UA and urine culture are also pending ? Respiratory viral studies are negative and chest x-ray was unremarkable ? Will obtain a C. difficile as he has had some diarrhea 2. A-fib/CAD status post stent/essential HTN/HLD ? Currently wearing Holter monitor ? Can resume his home blood pressure medications as well as his cholesterol medications ? Blood pressures are stable, will monitor make adjustments as necessary 3. DM2 ? Will hold his home medications ? Will place him on Lantus as well as sliding scale insulin ? Will monitor make adjustments as necessary ? Accu-Cheks ACHS 4. GERD ? Stabilized ? Continue with PPI DVT: Lovenox 75 minutes was spent on direct patient care, including documentation as well as chart review and collaboration with colleagues Charges/Coding Visit Charges Inpatient E&M: 54271 Init Hosp L3
[2024-01-07] MEDS: Ondansetron 4 MG/2 ML Vial IV (15:06)
--- NOTE | 2024-01-07 15:23 | NURSING ---
MED SURG SAIGE NEUTROPENIC FEVER, COUGH
[2024-01-07 16:58] LABS: Bedside Glucose 140 mg/dL (74-106)
[2024-01-07] MEDS: Acetaminophen 325 MG Tablet 650 MG PO (17:10)
[2024-01-07] MEDS: Piperacil/Tazobactam 3.375 GM in 0.9% Normal Saline (50mL MB+) 50 ML IV (20:54)
[2024-01-07] MEDS: Insulin Lispro 100 UNIT/ML INSULN.PEN SC (20:54)
[2024-01-07] MEDS: Insulin Glargine-YFGN 100 UNIT/ML Pen 20 UNIT SC (20:55)
[2024-01-07] MEDS: 0.9% Saline Lock 10 ML Syringe IV (20:58)
[2024-01-07 22:05] LABS: Bedside Glucose 234 mg/dL (74-106)
[2024-01-08] VITALS (13 sets, daily range): BP systolic 83–119; BP diastolic 53–68; PULSE 104–149; RESP 16–20; TEMP 36.1–38.8; O2SAT 95–97
[2024-01-08] MEDS: Acetaminophen 325 MG Tablet 650 MG PO ×2 (02:39→15:01)
[2024-01-08] MEDS: 0.9% Saline Lock 10 ML Syringe IV ×2 (05:08→15:03)
[2024-01-08] MEDS: Piperacil/Tazobactam 3.375 GM in 0.9% Normal Saline (50mL MB+) 50 ML IV ×3 (05:11→21:22)
[2024-01-08 06:00] LABS: Hematocrit 24.2 % (40-54); Mean Corp Hgb Conc 33.1 g/dL (32-36); Mean Corpuscular Hgb 31.4 pg (27.0-32.0); Mean Corpuscular Volume 94.9 fL (80-94); Mean Platelet Vol. 9.2 fl (6.2-12.0); POSITIVE COUNT YES; POSITIVE DIFFERENTIAL YES; POSITIVE MORPHOLOGY YES; RBC Distribution Width CV 19.9 % (11.6-14.6); Red Blood Count 2.55 M/mm3 (4.6-6.2); White Blood Count 2.7 K/mm3 (4.4-11.0)
[2024-01-08 06:17] LABS: Differential Indicated MANUAL DIFF; Platelet Count 46 K/mm3 (150-450)
[2024-01-08 07:00] LABS: Bedside Glucose 82 mg/dL (74-106)
[2024-01-08 07:42] LABS: Anisocytosis 2+; Eosinophil 4 % (0-5); Lymphocyte 9 % (19-41); Monocyte 1 % (0-10); Neutrophil-Band 11 % (0-5); Neutrophil-Segmented 75 % (47-70); Platelet Estimate MOD DEC (ADEQ); Total Cells Counted 100 (MANUAL DIFF)
[2024-01-08 07:43] LABS: Reactive Lymphocyte 2+; Red Cell Morphology N CHROM NORMAL (NORM C&C)
[2024-01-08 07:45] LABS: Absolute Lymphocyte Count 0.24 X10^3/uL (0.83-4.51); Absolute Neutrophil Count 2.3 X10^3/uL (2.0-7.7); Lymphocyte # 0.24 X10^3/ul (0.83-4.51); Neutrophil # 2.32 X10^3/uL (2.7-7.7)
--- NOTE | 2024-01-08 08:14 | PN.HOSP_ITS ---
Reason for Visit Reason for Visit: Diagnoses Neutropenia, unspecified (01/07/24) Fever presenting with conditions classified elsewhere (01/07/24) Objective Data Objective Data Vital Signs: Vital Signs Temp Pulse Resp BP Pulse Ox O2 Del Method 98.5 F 137 H 16 90/57 L 97 Room Air 01/08/24 07:54 01/08/24 07:54 01/08/24 07:54 01/08/24 07:54 01/08/24 07:54 01/08/24 07:54 Oxygen Delivery Method Room Air Weight: 150 lb 2.157 oz Body Mass Index (BMI) 23.8 Intake & Output: Intake and Output for Last 24 Hours 01/06/24 01/07/24 01/08/24 23:59 23:59 23:59 Intake Total 200 / 200 50 / 50 Balance 200 / 200 50 / 50 Lab / Micro Data 01/08/24 05:43 01/07/24 12:30 Labs: Laboratory Results - last 24 hr 01/07/24 12:30: WBC 1.2 L*, RBC 2.72 L, Hgb 8.6 L, Hct 26.4 L, MCV 97.1 H, MCH 31.6, MCHC 32.6, RDW Std Deviation 69.3 H, RDW Coeff of Jeanette 20.1 H, Plt Count 68 L, MPV 10.9, Neut % (Auto) Not Reportable, Absolute Neuts (auto) 0.9 L, Absolute Lymphs (auto) 0.24 L, Total Counted 100, Neutrophils % (Manual) 69, Band Emma trophils % 8 H, Lymphocytes % (Manual) 20, Monocytes % (Manual) 2, Myelocytes % 1 H, Diff Path Review May foll, Platelet Estimate MOD DEC, Anisocytosis 2+, Microcytosis 1+, Macrocytosis 1+, Sodium 134 L, Potassium 3.4 L, Chloride 103, Carbon Dioxide 23.0, Anion Gap 8, BUN 22 H, Creatinine 1.48 H, Est GFR (MDRD) Af Amer 59 L, Est GFR (MDRD) Non-Af 49 L, BUN/Creatinine Ratio 14.9, Glucose 215 H, Lactic Acid 1.1, Calcium 8.5 01/07/24 16:20: POC Glucose 140 H 01/07/24 20:39: POC Glucose 234 H 01/08/24 05:43: WBC 2.7 L, RBC 2.55 L, Hgb 8.0 L, Hct 24.2 L, MCV 94.9 H, MCH 31.4, MCHC 33.1, RDW Std Deviation 67.0 H, RDW Coeff of Jeanette 19.9 H, Plt Count 46 L*, MPV 9.2, Neut % (Auto) Not Reportable, Absolute Neuts (auto) 2.3, Absolute Lymphs (auto) 0.24 L, Total Counted 100, Neutrophils % (Manual) 75 H, Band Neutrophils % 11 H, Lymphocytes % (Manual) 9 L, Monocytes % (Manual) 1, Eosinophils % (Manual) 4, Diff Path Review May foll, Reactive Lymphocytes 2+, Platelet Estimate MOD DEC, RBC Morphology N CHROM, Anisocytosis 2+ 01/08/24 06:40: POC Glucose 82 Micro: Microbiology 01/07/24 16:20 Stool Clostridioides difficile (PCR) - Final 01/07/24 12:40 Mucosa - Nose SARS-CoV-2, Influenza & RSV (PCR) - Final Radiography Diagnostic Testing: Radiology Impression Chest X-Ray 01/07/24 12:52 IMPRESSION: Bibasilar scarring/atelectasis. Electronically Signed: Eliecer Reyes MD at 13:40 EDT , Assessment & Plan Assessment/Plan (1) Neutropenic fever: PLAN: Plan 1. Neutropenic fever in the setting of chemotherapy about a week ago for multiple different primary cancers and metastatic lesions to the brain ? Will continue with Zosyn and daily Granix until there is a response from elevated white blood cell count ? Blood cultures are pending and he has been unable to give a urine sample yet, however a UA and urine culture are also pending ? Respiratory viral studies are negative and chest x-ray was unremarkable ? Will obtain a C. difficile as he has had some diarrhea History of esophageal cancer status post chemoradiation adjuvant therapy. History of bladder cancer at multiple sites with bladder neck contracture status post transurethral incision of bladder neck contracture and TURBT in [place] [address] Rebolledo. History of prostate cancer treated with radiation in recently and then recurrence subsequently underwent TURP. History of renal cell carcinom a. 2. A-fib/CAD status post stent/essential HTN/HLD ? Currently wearing Holter monitor ? Can resume his home blood pressure medications as well as his cholesterol medications ? Blood pressures are stable, will monitor make adjustments as necessary 3. DM2 ? Will hold his home medications ? Will place him on Lantus as well as sliding scale insulin ? Will monitor make adjustments as necessary ? Accu-Cheks ACHS 4. GERD ? Stabilized ? Continue with PPI DVT: Lovenox 75 minutes was spent on direct patient care, including documentation as well as chart review and collaboration with colleagues
--- NOTE | 2024-01-08 08:14 | PCM.PN.HOSP ---
Reason for Visit Reason for Visit: Diagnoses Neutropenia, unspecified (01/07/24) Fever presenting with conditions classified elsewhere (01/07/24) Objective Data Objective Data Vital Signs: Vital Signs Temp Pulse Resp BP Pulse Ox O2 Del Method 98.5 F 137 H 16 90/57 L 97 Room Air 01/08/24 07:54 01/08/24 07:54 01/08/24 07:54 01/08/24 07:54 01/08/24 07:54 01/08/24 07:54 Oxygen Delivery Method Room Air Weight: 150 lb 2.157 oz Body Mass Index (BMI) 23.8 Intake & Output: Intake and Output for Last 24 Hours 01/06/24 01/07/24 01/08/24 23:59 23:59 23:59 Intake Total 200 / 200 50 / 50 Balance 200 / 200 50 / 50 Lab / Micro Data 01/08/24 05:43 01/07/24 12:30 Labs: Laboratory Results - last 24 hr 01/07/24 12:30: WBC 1.2 L*, RBC 2.72 L, Hgb 8.6 L, Hct 26.4 L, MCV 97.1 H, MCH 31.6, MCHC 32.6, RDW Std Deviation 69.3 H, RDW Coeff of Jeanette 20.1 H, Plt Count 68 L, MPV 10.9, Neut % (Auto) Not Reportable, Absolute Neuts (auto) 0.9 L, Absolute Lymphs (auto) 0.24 L, Total Counted 100, Neutrophils % (Manual) 69, Band Neutrophils % 8 H, Lymphocytes % (Manual) 20, Monocytes % (Manual) 2, Myelocytes % 1 H, Diff Path Review May foll, Platelet Estimate MOD DEC, Anisocytosis 2+, Microcytosis 1+, Macrocytosis 1+, Sodium 134 L, Potassium 3.4 L, Chloride 103, Carbon Dioxide 23.0, Anion Gap 8, BUN 22 H, Creatinine 1.48 H, Est GFR (MDRD) Af Amer 59 L, Est GFR (MDRD) Non-Af 49 L, BUN/Creatinine Ratio 14.9, Glucose 215 H, Lactic Acid 1.1, Calcium 8.5 01/07/24 16:20: POC Glucose 140 H 01/07/24 20:39: POC Glucose 234 H 01/08/24 05:43: WBC 2.7 L, RBC 2.55 L, Hgb 8.0 L, Hct 24.2 L, MCV 94.9 H, MCH 31.4, MCHC 33.1, RDW Std Deviation 67.0 H, RDW Coeff of Jeanette 19.9 H, Plt Count 46 L*, MPV 9.2, Neut % (Auto) Not Reportable, Absolute Neuts (auto) 2.3, Absolute Lymphs (auto) 0.24 L, Total Counted 100, Neutrophils % (Manual) 75 H, Band Neutrophils % 11 H, Lymphocytes % (Manual) 9 L, Monocytes % (Manual) 1, Eosinophils % (Manual) 4, Diff Path Review January foll, Reactive Lymphocytes 2+, Platelet Estimate MOD DEC, RBC Morphology N CHROM, Anisocytosis 2+ 01/08/24 06:40: POC Glucose 82 Micro: Microbiology 01/07/24 16:20 Stool Clostridioides difficile (PCR) - Final 01/07/24 12:40 Mucosa - Nose SARS-CoV-2, Influenza & RSV (PCR) - Final Radiography Diagnostic Testing: Radiology Impression Chest X-Ray 01/07/24 12:52 IMPRESSION: Bibasilar scarring/atelectasis. Electronically Signed: Eliecer Reyes MD at 13:40 EDT , Physical Exam Narrative Seen and examined. Patient admitted with fever since Sunday, high-grade intermittent. He also has dry cough but does not bring phlegm. Started having watery diarrhea about 3 times about 3 PM after admission. He states that it happened after he was given antibiotic and Granix. Patient blood pressure low 90/57, heart rate 137. General: Alert, Oriented x3, Cooperative HEENT: Atraumatic, PERRLA, EOMI, Normocephalic Oral: Oral mucosa dry. No Gingival or Mucosal Lesions/ Ulcerations Neck: Supple, No JVD, Negative Carotid Bruits Chest wall/Lungs: Air entry diminished in bilateral lung bases. Chronic coarse crepitations. Cardiovascular: Sinus tachycardia, Normal S1, Normal S2, No M/G/R Abdomen: Bowel Sounds hyperactive, Soft, Non Tender, Non-Distended : No dysuria. No renal angle tenderness. No suprapubic tenderness. Extremities: No edema, Capillary Refill Less than 3 Seconds Skin: No rashes, No breakdown Musculoskeletal: No Tenderness to Palpation of Joints or Extremities. ROM intact. Neurological: Cranial nerves II-XII grossly intact, DTR 2+/4. Status post frontal colectomy after surgery. No acute focal neurological deficit. Psych/Mental Status: Normal Affect, Appropriate. Assessment & Plan Assessment/Plan (1) Neutropenic fever: PLAN: Plan This 83-year-old gentleman came to ED with fever and cough for 4 days, high-grade. Patient had chemotherapy for brain tumor about a week ago. Transfused 2 units of PRBC about 4 days ago. Denies chest pain or shortness of breath. 1. 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 Tmax 101.8 Fahrenheit at 2:35 AM on 01/08/2020. Bands 11%, neutrophils 75% lymphocyte 9%, ANC 240 cells Blood cultures are pending. SARS-CoV-2 RSV and influenza PCR negative. Respiratory panel ordered. ID consult requested. Empirically on IV Zosyn and daily Granix. Chest x-ray does not show acute infiltrate but mild bibasilar scarring/atelectasis. 2. Diarrhea leading to hypovolemia and mild hypotension: 1 L of IV fluid normal saline ordered. Patient denies symptoms of dizziness lightheadedness and feels on baseline although his baseline BP is systolic 120s. Stool for C. difficile negative. Stool for enteric bacterial panel ordered. Serum magnesium and phosphorus ordered 3. History of multiple cancer: Patient is stated he was first diagnosed with bladder cancer and within interval of 2 to 3 years, was found to have prostate cancer and renal cancer. Then it was found esophageal cancer status post chemoradiation adjuvant therapy. Subsequently, brain tumor for which she had resection and adjuvant chemotherapy. History of bladder cancer at multiple sites with bladder neck contracture status post transurethral incision of bladder neck contracture and TURBT in March [address] Rebolledo. History of prostate cancer treated with radiation in recently and then recurrence subsequently underwent TURP. 4. Paroxysmal A-fib/CAD status post stent ? Currently wearing Holter monitor. Twelve-lead EKG ordered ?Resume usual cardiac medications except antihypertensive. Hypertension currently hypotension. Dyslipidemia DM2 ? hold his home medications ?Continue on Lantus as well as sliding scale insulin ? monitor make adjustments as necessary ? Accu-Cheks ACHS GERD ? Continue with PPI Pancytopenia: Severe normocytic normochromic chronic anemia H&H 8.0/24.2 , leukopenia, 2.7K, ALC 240 cells, severe thrombocytopenia, platelet count is 46,000. Enoxaparin discontinued. Bilateral SCDs for DVT. Patient has bands 11% with lymphopenia. Total time of the visit including total time spent in counseling or coordination of care, (more than 50% of the total time, spent in obtaining medical information from nurses and other ancillary care providers,explaining to the patient about labs, imaging, diagnosis and management of active complex medical conditions), discussion with ID, comprehensive review of health record, review of labs and imaging is 40 minutes. Charges/Coding Visit Charges Inpatient E&M: 46669 Subs Hosp L3
[2024-01-08] MEDS: 0.9% Normal Saline (1000mL) 1,000 ML 999 ML IV (08:26)
--- NOTE | 2024-01-08 08:55 | EKG12_ITS ---
Test Reason : Blood Pressure : / mmHG Vent. Rate : 137 BPM Atrial Rate : 000 BPM P-R Int : 000 ms QRS Dur : 082 ms QT Int : 264 ms P-R-T Axes : 000 027 -16 degrees QTc Int : 398 ms Atrial fibrillation with rapid ventricular response Low voltage QRS Nonspecific T wave abnormality Abnormal ECG When compared with ECG of 14-DEC-2023 00:00, Atrial fibrillation has replaced Sinus rhythm Vent. rate has increased BY 54 BPM Nonspecific T wave abnormality now evident in Anterolateral leads Confirmed by Richard Fabian ([id number]), book editor GABRIELLE CALDWELL ([id number]) on 01/09/2024 10:42:27 AM Referred By: UNIQUE Confirmed By:Richard Fabian
--- NOTE | 2024-01-08 10:29 | PCM.CONS.GEN ---
Assessment & Plan Assessment/Plan (1) Neutropenic fever: PLAN: Improved counts and temps. On zosyn. Infection work up neg so far. Plan on discharge with short course po abx if he cont to improve. Will follow, thank you, d/w Dr. Dockery HPI Consult Data Date of Consult: 01/08/24 HPI Narrative Reason for Consultation: neutropenic fever HPI Narrative: JEANNA ALONZO, is a 83 M who presented after recent chemo for metastatic cancer via peripheral a week ago, then 2-3 days progressive fever, chills, weakness, and dry cough. No sick contacts, no recent travel. No abd pain, no dyspnea, no n/v/d. Came to ED, admitted on zosyn, feeling better. Still some chills. Full ROS performed and neg except as noted above. [facility] Medical History Alcohol use Anemia Arthritis Atrial fibrillation Back pain Bladder disease Cancer Cardiology follow-up encounter Diabetes Dietary restriction Former smoker GERD (gastroesophageal reflux disease) High cholesterol History of echocardiogram History of edema History of esophageal dilatation History of gastrointestinal hemorrhage History of GI bleed History of prostate cancer History of renal disease History of stress test Hypertension Injury of head and neck Insulin dependent diabetes mellitus Kidney disease Leg cramps Wears dentures Wears glasses Home Medications amlodipine 5 mg tablet 5 mg PO DAILY 11/17/13 [History Last Taken 11/24/23] glimepiride 2 mg tablet 4 mg PO DAILY 11/17/13 [History Last Taken Unknown] nitroglycerin 0.4 mg sublingual tablet 0.4 mg sublingual Q5M PRN Chest Pain 11/17/13 [History Last Taken Unknown] sildenafil 100 mg tablet (Viagra) 100 mg PO PRN PRN SEXUAL USE 11/17/13 [History Last Taken Unknown] ergocalciferol (vitamin D2) 1,250 mcg (50,000 unit) capsule 1 tab PO FLETCHER 05/02/19 [History Last Taken Unknown] fenofibrate 160 mg tablet 160 mg PO DAILY 05/02/19 [History Last Taken Unknown] dulaglutide 0.75 mg/0.5 mL subcutaneous pen injector (Trulicity) 0.75 mg subcut FLETCHER 09/09/21 [History Last Taken Unknown] pantoprazole 40 mg tablet,delayed release 40 mg PO DAILY 09/09/21 [History Last Taken 03/28/23] rosuvastatin 40 mg tablet 40 mg PO DAILY 09/09/21 [History Last Taken Unknown] dapagliflozin propanediol 10 mg tablet (Kinxiga) 10 mg PO DAILY 03/19/23 [History Last Taken Unknown] insulin glargine U-300 conc 300 unit/mL (3 mL) subcutaneous pen (Toujeo Max U-300 SoloStar) 44 unit subcut DAILY 03/19/23 [History Last Taken Unknown] oxybutynin chloride 10 mg tablet,extended release 24 hr 10 mg PO DAILY #90 tabs 03/28/23 [Rx Last Taken Unknown] folic acid 1 mg tablet 1 mg PO DAILY 12/13/23 [History Last Taken Unknown] oxycodone-acetaminophen 5 mg-325 mg tablet (Percocet) 1 tab PO Q6H PRN pain 3 days #12 tabs 12/14/23 [Rx Last Taken Unknown] dapagliflozin propanediol .ROUTE ask pcp 01/07/24 [History Last Taken Unknown] pantoprazole PO ask pcp 01/07/24 [History Last Taken Unknown] rosuvastatin .ROUTE ask pcp 01/07/24 [History Last Taken Unknown] valacyclovir .ROUTE ask pcp 01/07/24 [History Last Taken Unknown] Allergy/AdvReac Type Severity Reaction Status Date / Time chlorhexidine Allergy Rash Verified 01/07/24 11:36 Family History Other COPD (chronic obstructive pulmonary disease) Surgical History History of AAA (abdominal aortic aneurysm) repair History of cardiac catheterization History of coronary artery stent placement History of herniorrhaphy History of transurethral resection of bladder tumor (TURBT) Social History Smoking Status: Former smoker alcohol intake: current alcohol intake frequency: 0-2 drinks per day Alcohol type: hard liquor Physical Exam Const alert, oriented x3 and no apparent distress General Appearance: cooperative HEENT normocephalic and head/scalp atraumatic Eyes PERRL and EOMs intact bilaterally Neck supple and No nodes Resp normal air movement and clear to auscultation bilaterally Cardio regular rate and regular rhythm GI soft to palpation, non-tender and non-distended Extremity General Extremity: Negative for edema Skin no rashes or lesions noted Neuro CN's II-XII intact bilaterally Lab / Micro Data Attestation: I reviewed the patient's lab results. 01/08/24 05:43 01/08/24 05:43 Labs: Laboratory Results - last 24 hr 01/07/24 12:30: WBC 1.2 L*, RBC 2.72 L, Hgb 8.6 L, Hct 26.4 L, MCV 97.1 H, MCH 31.6, MCHC 32.6, RDW Std Deviation 69.3 H, RDW Coeff of Jeanette 20.1 H, Plt Count 68 L, MPV 10.9, Neut % (Auto) Not Reportable, Absolute Neuts (auto) 0.9 L, Absolute Lymphs (auto) 0.24 L, Total Counted 100, Neutrophils % (Manual) 69, Band Neutrophils % 8 H, Lymphocytes % (Manual) 20, Monocytes % (Manual) 2, Myelocytes % 1 H, Diff Path Review May foll, Platelet Estimate MOD DEC, Anisocytosis 2+, Microcytosis 1+, Macrocytosis 1+, Sodium 134 L, Potassium 3.4 L, Chloride 103, Carbon Dioxide 23.0, Anion Gap 8, BUN 22 H, Creatinine 1.48 H, Est GFR (MDRD) Af Amer 59 L, Est GFR (MDRD) Non-Af 49 L, BUN/Creatinine Ratio 14.9, Glucose 215 H, Lactic Acid 1.1, Calcium 8.5 01/07/24 16:20: POC Glucose 140 H 01/07/24 20:39: POC Glucose 234 H 01/08/24 05:43: WBC 2.7 L, RBC 2.55 L, Hgb 8.0 L, Hct 24.2 L, MCV 94.9 H, MCH 31.4, MCHC 33.1, RDW Std Deviation 67.0 H, RDW Coeff of Jeanette 19.9 H, Plt Count 46 L*, MPV 9.2, Neut % (Auto) Not Reportable, Absolute Neuts (auto) 2.3, Absolute Lymphs (auto) 0.24 L, Total Counted 100, Neutrophils % (Manual) 75 H, Band Neutrophils % 11 H, Lymphocytes % (Manual) 9 L, Monocytes % (Manual) 1, Eosinophils % (Manual) 4, Diff Path Review May foll, Reactive Lymphocytes 2+, Platelet Estimate MOD DEC, RBC Morphology N CHROM, Anisocytosis 2+ 01/08/24 06:40: POC Glucose 82 Micro: Microbiology 01/07/24 16:20 Stool Clostridioides difficile (PCR) - Final 01/07/24 12:40 Mucosa - Nose SARS-CoV-2, Influenza & RSV (PCR) - Final Imaging Radiology Impression Chest X-Ray 01/07/24 12:52 IMPRESSION: Bibasilar scarring/atelectasis. Electronically Signed: Eliecer Reyes MD at 13:40 EDT ,
[2024-01-08] MEDS: Insulin Lispro 100 UNIT/ML INSULN.PEN SC ×3 (11:11→21:31)
[2024-01-08] MEDS: TBO-FILGRASTIM 300 MCG/0.5 ML ML SC (11:12)
[2024-01-08] MEDS: Potassium Chloride Oral Tablet 20 MEQ 40 MEQ PO (11:13)
[2024-01-08] MEDS: Metoprolol Tartrate 5 MG/5 ML Vial IV (11:34)
[2024-01-08] MEDS: 0.9% Normal Saline (1000mL) 1,000 ML 250 ML IV (11:35)
[2024-01-08 11:46] LABS: Bedside Glucose 205 mg/dL (74-106)
[2024-01-08 12:12] LABS: Anion Gap 12 (5-15); BUN 20 mg/dL (7-18); BUN/Creat Ratio 13.6 RATIO (10-20); Chloride 110 mmol/L (98-107); Creatinine, Serum 1.47 mg/dL (0.70-1.30); EST Glomerular Filtration Rate 49 mL/min (>60); Est Glom Filt Rate - Afr Amer 59 mL/min (>60); Estimated Creatinine Clearance 35.57 ml/min; Glucose 87 mg/dL (74-106); Potassium 3.3 mmol/L (3.5-5.1); Sodium Level 140 mmol/L (136-145)
[2024-01-08] MEDS: Metoprolol Tartrate 25 MG Tablet PO ×2 (12:38→21:24)
--- NOTE | 2024-01-08 12:45 | CASEMGMT ---
RN CM Face to Face with patient for initial transition planning/care coordination assessment. RN CM introduced self and role at [facility]. Patient lying in bed, alert and oriented. Patient willing to participate in assessment and is able to answer all questions appropriately. Care providers, pharmacy, and demographics verified. PCP: Jose Specialists: Mi, GI; Fred, economics analyst; Kesha, urologist; Sascha, rooter operator; Tamiko/Eri, oncologist; Preferred Pharmacy: [facility] [place] Insurance: [facility] Prescription Benefit: yes Living Will/HPOA: yes, Portia Grace LNOK: , daughter Living Arrangements: Patient lives with in a 2 story home with 4 steps and railing to enter the home. Patient is independent at home and able to ambulate stairs. Transportation: self, DME/HHC: Patient has shower chair, grab bars, and glucometer at home. No previous HHC or SNF. Patient wishes to discharge home, denies need for home health at this time. Patient states he has no further needs or concerns at this time. CM to follow for discharge planning needs that may arise. Disposition Plan: Patient to discharge home with family support and follow-up plans in place. Gianna CORDON, RN, CM
[2024-01-08 13:33] LABS: Phosphorus 3.5 mg/dL (2.5-4.9)
[2024-01-08] MEDS: Digoxin 250 MCG/ML Ampul 500 MCG IV (15:00)
[2024-01-08 15:51] LABS: Pathologist Review Reviewed
[2024-01-08 18:21] LABS: Bedside Glucose 187 mg/dL (74-106)
[2024-01-08] MEDS: Digoxin 250 MCG/ML Ampul IV (21:23)
[2024-01-08] MEDS: Lactobacillis Acidophilus 1 CAP PO (21:29)
[2024-01-08] MEDS: Insulin Glargine-YFGN 100 UNIT/ML Pen 20 UNIT SC (21:30)
[2024-01-09 01:05] LABS: Bedside Glucose 214 mg/dL (74-106)
[2024-01-09 03:00] VITALS: BP 122/72; PULSE 101; RESP 18; TEMP 37; O2SAT 96
[2024-01-09] MEDS: Piperacil/Tazobactam 3.375 GM in 0.9% Normal Saline (50mL MB+) 50 ML IV (06:31)
[2024-01-09 07:02] LABS: Bedside Glucose 67 mg/dL (74-106)
[2024-01-09 07:58] VITALS: BP 113/63; PULSE 119; RESP 16; TEMP 37.2; O2SAT 98
[2024-01-09 08:09] VITALS: BP 113/63; PULSE 119
[2024-01-09] MEDS: TBO-FILGRASTIM 300 MCG/0.5 ML ML SC (08:09)
[2024-01-09] MEDS: Metoprolol Tartrate 25 MG Tablet PO ×2 (08:09→15:43)
--- NOTE | 2024-01-09 08:20 | PN.HOSP_ITS ---
Reason for Visit Reason for Visit: Diagnoses Neutropenia, unspecified (01/07/24) Fever presenting with conditions classified elsewhere (01/07/24) Objective Data Objective Data Vital Signs: Vital Signs Temp Pulse Resp BP Pulse Ox O2 Del Method 98.9 F 119 H 16 113/63 98 Room Air 01/09/24 07:58 01/09/24 08:09 01/09/24 07:58 01/09/24 08:09 01/09/24 07:58 01/09/24 07:58 Oxygen Delivery Method Room Air Weight: 150 lb 2.157 oz Body Mass Index (BMI) 23.8 Intake & Output: Intake and Output for Last 24 Hours 01/07/24 01/08/24 01/09/24 23:59 23:59 23:59 Intake Total 200 / 200 2510 / 3310 850 / 850 Balance 200 / 200 2510 / 3310 850 / 850 Lab / Micro Data 01/09/24 07:56 01/09/24 07:56 Labs: Laboratory Results - last 24 hr 01/07/24 12:30: Diff Path Review Reviewed 01/08/24 05:43: Sodium 140, Potassium 3.3 L, Chloride 110 H, Carbon Dioxide 18.0 L, Anion Gap 12, BUN 20 H, Creatinine 1.47 H, Estim Creat Clear Calc 35.57, Est GFR (MDRD) Af Amer 59 L, Est GFR (MDRD) Non-Af 49 L, BUN/Creatinine Ratio 13.6, Glucose 87, Calcium 9.0, Phosphorus 3.5, Magnesium 2.0 01/08/24 11:09: POC Glucose 205 H 01/08/24 15:41: POC Glucose 187 H 01/08/24 21:21: POC Glucose 214 H 01/09/24 06:38: POC Glucose 67 L Micro: Microbiology 01/08/24 09:35 Mucosa - Nose Respiratory Panel (PCR) - Final 01/07/24 16:20 Stool Enteric Bacteriology - Final 01/07/24 16:20 Stool Clostridioides difficile (PCR) - Final 01/07/24 12:40 Mucosa - Nose SARS-CoV-2, Influenza & RSV (PCR) - Final Physical Exam Narrative Seen and examined. No fever overnight. Cough is better. Blood pressure is controlled. Heart rate sometimes goes in 110s. Physical exam General: Alert, Oriented x3, Cooperative HEENT: Atraumatic, PERRLA, EOMI, Normocephalic Oral: Oral mucosa dry. No Gingival or Mucosal Lesions/ Ulcerations Neck: Supple, No JVD, Negative Carotid Bruits Chest wall/Lungs: Air entry diminished in bilateral lung bases. Less crepitations.. Cardiovascular: A-fib with RVR, hypotension improved. Normal S1, Normal S2, No M/G/R Abdomen: Bowel Sounds hyperactive, Soft, Non Tender, Non-Distended : No dysuria. No renal angle tenderness. No suprapubic tenderness. Extremities: No edema, Capillary Refill Less than 3 Seconds Skin: No rashes, No breakdown Musculoskeletal: No Tenderness to Palpation of Joints or Extremities. ROM intact. Neurological: Cranial nerves II-XII grossly intact, DTR 2+/4. Status post frontal colectomy after surgery. No acute focal neurological deficit. Psych/Mental Status: Normal Affect, Appropriate. Assessment & Plan Assessment/Plan (1) Neutropenic fever: PLAN: Plan This 83-year-old gentleman came to ED with fever and cough for 4 days, high- grade. Patient had chemotherapy for brain tumor about a week ago. Transfused 2 units of PRBC about 4 days ago. Denies chest pain or shortness of breath. 1. 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 Tmax 101.8 Fahrenheit at 2:35 AM on 01/08/2020. Bands 11%, neutrophils 75% lymphocyte 9%, ANC 240 cells Blood cultures are pending. SARS-CoV-2 RSV and influenza PCR negative. Respiratory panel ordered. ID consult requested. Empirically on IV Zosyn and daily Granix. Chest x-ray does not show acute infiltrate but mild bibasilar scarring/atelectasis. 01/08: Neutropenia resolved. Patient still has severe anemia and thrombocytopenia. ID discontinued Zosyn and recommended cefdinir for 3 more days to finish empiric course. 2. Diarrhea leading to hypovolemia and mild hypotension: 1 L of IV fluid normal saline ordered. Patient denies symptoms of dizziness lightheadedness and feels on baseline although his baseline BP is systolic 120s. Stool for C. difficile negative. 01/08: Stool for enteric bacterial panel and respiratory panel are negative serum magnesium and phosphorus are in normal range. Diarrhea resolved. Hypokalemia, potassium 3.2. IV KCl replacement. 3. History of multiple cancer: Patient is stated he was first diagnosed with bladder cancer and within interval of 2 to 3 years, was found to have prostate cancer and renal cancer. Then it was found esophageal cancer status post chemoradiation adjuvant therapy. Subsequently, brain tumor for which she had resection and adjuvant chemotherapy. History of bladder cancer at multiple sites with bladder neck contracture status post transurethral incision of bladder neck contracture and TURBT in March [address] Rebolledo. History of prostate cancer treated with radiation in recently and then recurrence subsequently underwent TURP. 4. Paroxysmal A-fib/CAD status post stent ? Currently wearing Holter monitor. Twelve-lead EKG ordered ?Resume usual cardiac medications except antihypertensive. 01/08: Paroxysmal A-fib with RVR: Twelve-lead EKG shows A-fib. Metoprolol dose increased to 50 mg twice daily.Patient was given digoxin loading dose yesterday. Hypertension currently hypotension. 01/08: Hypotension resolved. Dyslipidemia DM2 ? hold his home medications ?Continue on Lantus as well as sliding scale insulin ? monitor make adjustments as necessary ? Accu-Cheks ACHS 01/08: Patient has hypoglycemia, glucose 67. Lantus dose decreased to 10 units subcutaneous daily. 01/07: BMP glucose in fasting state is good 140. Fingersticks elevated therefore started on lispro insulin 10 units subcutaneous 3 times daily with meals. GERD: Continue with PPI Pancytopenia: Severe normocytic normochromic chronic anemia H&H 8.0/24.2 , leukopenia, 2.7K, ALC 240 cells, severe thrombocytopenia, platelet count is 46,000. Enoxaparin discontinued. Bilateral SCDs for DVT. Patient has bands 11% with lymphopenia. 01/08: Platelet count further dropped to 24,000. H&H 7.3/22%. Total time of the visit including total time spent in counseling or coordination of care, (more than 50% of the total time, spent in obtaining medical informatio n from nurses and other ancillary care providers,explaining to the patient about labs, imaging, diagnosis and management of active complex medical conditions), discussion with ID, comprehensive review of health record, review of labs and imaging is 40 minutes. Charges/Coding Visit Charges Inpatient E&M: 18432 Subs Hosp L2
[2024-01-09 08:22] LABS: International Normalized Ratio 1.3; Prothrombin Time (Protime)PT. 15.9 SECONDS (11.7-14.9)
[2024-01-09 08:23] LABS: Partial Thromboplast Time 43.8 Seconds (24.1-36.2)
[2024-01-09 08:38] LABS: Hematocrit 22.9 % (40-54); Hemoglobin 7.3 g/dL (13.0-16.5); Mean Corp Hgb Conc 31.9 g/dL (32-36); Mean Corpuscular Hgb 30.5 pg (27.0-32.0); Mean Corpuscular Volume 95.8 fL (80-94); POSITIVE COUNT YES; POSITIVE DIFFERENTIAL YES; POSITIVE MORPHOLOGY YES; RBC Distribution Width SD 67.5 fl (35.1-43.9); Red Blood Count 2.39 M/mm3 (4.6-6.2); White Blood Count 4.4 K/mm3 (4.4-11.0)
[2024-01-09 08:41] LABS: Differential Indicated MANUAL DIFF; Platelet Count 24 K/mm3 (150-450)
[2024-01-09 08:47] LABS: Anion Gap 9 (5-15); BUN 15 mg/dL (7-18); BUN/Creat Ratio 11.7 RATIO (10-20); Calcium,Total 8.1 mg/dL (8.5-10.1); Chloride 109 mmol/L (98-107); Creatinine, Serum 1.28 mg/dL (0.70-1.30); EST Glomerular Filtration Rate 57 mL/min (>60); Est Glom Filt Rate - Afr Amer 69 mL/min (>60); Estimated Creatinine Clearance 40.84 ml/min; Glucose 140 mg/dL (74-106); Potassium 3.2 mmol/L (3.5-5.1); Sodium Level 136 mmol/L (136-145)
[2024-01-09 09:13] LABS: Anisocytosis 2+; Eosinophil 3 % (0-5); Lymphocyte 12 % (19-41); Monocyte 6 % (0-10); Neutrophil-Band 3 % (0-5); Neutrophil-Segmented 76 % (47-70); Red Cell Morphology N CHROM NORMAL (NORM C&C); Total Cells Counted 100 (MANUAL DIFF)
[2024-01-09 09:14] LABS: Platelet Estimate MKD DEC (ADEQ)
[2024-01-09 09:15] LABS: Absolute Neutrophil Count 3.5 X10^3/uL (2.0-7.7)
[2024-01-09 09:16] LABS: Absolute Lymphocyte Count 0.53 X10^3/uL (0.83-4.51); Lymphocyte # 0.53 X10^3/ul (0.83-4.51)
[2024-01-09] MEDS: Pantoprazole Sodium 40 MG Tablet PO ×2 (10:38→21:08)
[2024-01-09] MEDS: Potassium Chloride 10mEq/100mL 10 MEQ/100 ML IV.SOLN. 100 MEQ IV BOLUS (10:38)
[2024-01-09] MEDS: Potassium Chloride Oral Tablet 20 MEQ 40 MEQ PO ×2 (10:38→15:49)
[2024-01-09] MEDS: Insulin Lispro 100 UNIT/ML INSULN.PEN SC ×3 (11:30→20:11)
[2024-01-09 11:49] LABS: Bedside Glucose 270 mg/dL (74-106)
--- NOTE | 2024-01-09 14:01 | PCM.PN.ID ---
Physical Exam Narrative Feeling fine, some mild loose stool, no fever Const alert and no apparent distress General Appearance: cooperative Resp normal air movement and clear to auscultation bilaterally Cardio regular rate and regular rhythm GI soft to palpation, non-tender and non-distended Skin no rashes or lesions noted ID ID: Route of nutrition/ use of supplements: [] Nutritional Intake: [] IV Site: [] Doherty Catheter: [] Assessment & Plan Assessment/Plan (1) Neutropenic fever: PLAN: Improved ANC and temps. On zosyn. Infection work up neg so far. Will change zosyn to cefdinir for 3 more days to finish empiric course. Will follow. Ok for d/c home from ID perspective.
[2024-01-09 15:41] LABS: Pathologist Review Reviewed
[2024-01-09 15:43] VITALS: PULSE 108
[2024-01-09] MEDS: Insulin Lispro 100 UNIT/ML INSULN.PEN 10 UNIT SC (15:48)
[2024-01-09 16:10] LABS: Bedside Glucose 177 mg/dL (74-106)
[2024-01-09 20:00] VITALS: BP 123/58; PULSE 94; RESP 18; TEMP 37.1; O2SAT 100
[2024-01-09] MEDS: Insulin Glargine-YFGN 100 UNIT/ML Pen 10 UNIT SC (20:13)
[2024-01-09 21:07] VITALS: BP 123/58; PULSE 94
[2024-01-09] MEDS: Metoprolol Tartrate 50 MG Tablet PO (21:07)
[2024-01-09] MEDS: Cefdinir 300 MG Capsule PO (21:08)
[2024-01-09] MEDS: Lactobacillis Acidophilus 1 CAP PO (21:08)
[2024-01-09] MEDS: Atorvastatin Calcium 80 MG Tablet PO (21:08)
[2024-01-09 22:01] LABS: Bedside Glucose 216 mg/dL (74-106)
[2024-01-10 03:00] VITALS: BP 116/56; PULSE 67; RESP 18; TEMP 36.4; O2SAT 97
[2024-01-10 08:11] LABS: Absolute Lymphocyte Count 0.49 X10^3/uL (0.83-4.51); Absolute Neutrophil Count 3.2 X10^3/uL (2.0-7.7); Basophil# 0.03 X10^3/uL; Basophil% 0.6 % (0-1); Eosinophil# 0.16 X10^3/uL; Eosinophils% 3.4 % (0-5); Hematocrit 22.9 % (40-54); Hemoglobin 7.5 g/dL (13.0-16.5); Lymphocyte # 0.49 X10^3/ul (0.83-4.51); Lymphocyte % 10.4 % (19-41); Mean Corp Hgb Conc 32.8 g/dL (32-36); Mean Corpuscular Hgb 31.4 pg (27.0-32.0); Mean Corpuscular Volume 95.8 fL (80-94); Monocyte% 10.6 % (0-10); NRBC Flagged by Analyzer 0 % (0-5); Neutrophil # 3.23 X10^3/uL (2.7-7.7); Neutrophil % 68.4 % (47-70); POSITIVE COUNT YES; POSITIVE DIFFERENTIAL YES; POSITIVE MORPHOLOGY YES; RBC Distribution Width CV 20.1 % (11.6-14.6); RBC Distribution Width SD 68.3 fl (35.1-43.9); Red Blood Count 2.39 M/mm3 (4.6-6.2); White Blood Count 4.7 K/mm3 (4.4-11.0)
[2024-01-10 08:17] LABS: Differential Indicated SCAN CRITERIA MET; Platelet Count 21 K/mm3 (150-450)
[2024-01-10 08:37] LABS: Anisocytosis 1+; Differential Comment SCANNED; Platelet Estimate MKD DEC (ADEQ)
[2024-01-10 08:43] LABS: Anion Gap 6 (5-15); BUN 13 mg/dL (7-18); BUN/Creat Ratio 11.9 RATIO (10-20); Calcium,Total 8.8 mg/dL (8.5-10.1); Chloride 110 mmol/L (98-107); Creatinine, Serum 1.09 mg/dL (0.70-1.30); EST Glomerular Filtration Rate 69 mL/min (>60); Est Glom Filt Rate - Afr Amer 84 mL/min (>60); Estimated Creatinine Clearance 47.96 ml/min; Glucose 135 mg/dL (74-106); Potassium 3.8 mmol/L (3.5-5.1); Sodium Level 137 mmol/L (136-145)
[2024-01-10 08:58] VITALS: BP 130/60; PULSE 90; RESP 16; TEMP 36.1; O2SAT 97
[2024-01-10 09:01] VITALS: PULSE 90
[2024-01-10] MEDS: Metoprolol Tartrate 50 MG Tablet PO (09:01)
--- NOTE | 2024-01-10 09:01 | DCINST_ITS ---
Discharge Instructions Diet Discharge Diet: No restrictions Activity Discharge Activity: Return to Normal Activity Weight Bearing Status: Weight bearing as tolerated and - (Be careful and cautious to avoid falls.) Dressing / Incision Call your doctor if you observe: Fever of 101 or Higher, Coldness, Increased Pain, Numbness or Tingling, Change in Color, Inability to urinate, Inability to have a bowel movement, Shortness of breath, Dizziness, Fainting spells, Swelling in the ankles, Chest pain, Prolonged hiccupping, Increased palpitations (irregular heartbeat) and Calf discomfort Follow Up Care When: IN 2 WEEKS Test Results: Test results from this visit will be discussed in further detail at your follow- up appointment, if applicable. Discharge Plan Admission Admit Date/Time: 01/07/24 14:46 Primary Reason for Your Visit: The neutropenic fever. Attending Provider: Michael Dockery Primary Care Provider: Maria Eugenia Garcia Consulting Providers: Haile Godinez Robert Discharge Orders/Prescriptions Prescriptions: New cefdinir 300 mg Capsule 300 mg PO Q12 2 Days Qty: 4 0RF Continued sildenafil [Viagra] 100 MG tablet 100 mg PO PRN PRN (Reason: SEXUAL USE) glimepiride 2 MG tablet 4 mg PO DAILY nitroglycerin 0.4 MG tablet 0.4 mg sublingual Q5M PRN (Reason: Chest Pain) pantoprazole 40 mg tablet,delayed release (DR/EC) 40 mg PO BID rosuvastatin 40 mg tablet 40 mg PO DAILY Trulicity 0.75 mg/0.5 mL Pen Injector 0.75 mg SUBCUT FLETCHER dapagliflozin propanediol [Farxiga] 10 mg Tablet 10 mg PO DAILY insulin glargine U-300 conc [Toujeo Max U-300 SoloStar] 300 unit/mL (3 mL) Insulin Pen 44 unit SUBCUT DAILY Changed metoprolol succinate 25 mg tablet extended release 24 hr 50 mg PO BID 30 Days Qty: 30 0RF Rx Instructions: Hold for heart less than 50 or systolic blood pressure less than 100 mmHg. Held valacyclovir 500 mg PO BID Hold Instructions: Hold for 1 week as patient is severely thrombocytopenic. Referrals / Follow Up: Maria Eugenia Garcia, [Primary Care Provider] - Disposition Disposition (needs filled in before D/C Order can be placed): Home, Self Care
[2024-01-10] MEDS: Cefdinir 300 MG Capsule PO (09:02)
[2024-01-10] MEDS: Lactobacillis Acidophilus 1 CAP PO (09:03)
[2024-01-10] MEDS: Insulin Lispro 100 UNIT/ML INSULN.PEN 10 UNIT SC (09:03)
--- NOTE | 2024-01-10 09:06 | PCM.DC.SUM ---
Providers Date of Admission: 01/07/24 Date of Discharge: 01/10/24 Primary Care Physician: Dr. Maria Eugenia Garcia, Consultations 01/08/24 09:08 Consult: Infectious Disease Routine Consulting Provider: Kareem Morales Reason for Consult: NEUTROPENIC FEVER, DIARRHEA, FEVER EMERGENT Consult: No MD Notified: Yes Date Notified: 01/08/24 Time Notified: 09:08 Method of Notification: Text Reason For Visit: NEUTROPENIC FEVER Diagnosis Discharge Diagnosis (1) Neutropenic fever: Status: Acute Code(s): D70.9 - Neutropenia, unspecified; R50.81 - Fever presenting with conditions classified elsewhere Plan This 83-year-old gentleman came to ED with fever and cough for 4 days, high-grade. Patient had chemotherapy for brain tumor about a week ago. Transfused 2 units of PRBC about 4 days ago. Denies chest pain or shortness of breath. 1. 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 Tmax 101.8 Fahrenheit at 2:35 AM on 01/08/2020. Bands 11%, neutrophils 75% lymphocyte 9%, ANC 240 cells Blood cultures are pending. SARS-CoV-2 RSV and influenza PCR negative. Respiratory panel ordered. ID consult requested. Empirically on IV Zosyn and daily Granix. Chest x-ray does not show acute infiltrate but mild bibasilar scarring/atelectasis. 01/08: Neutropenia resolved. Patient still has severe anemia and thrombocytopenia. ID discontinued Zosyn and recommended cefdinir for 3 more days to finish empiric course. 01/09:WBC count is 4.7 thousand. ANC 3.2 thousand. 2. Diarrhea leading to hypovolemia and mild hypotension: 1 L of IV fluid normal saline ordered. Patient denies symptoms of dizziness lightheadedness and feels on baseline although his baseline BP is systolic 120s. Stool for C. difficile negative. 01/08: Stool for enteric bacterial panel and respiratory panel are negative serum magnesium and phosphorus are in normal range. Diarrhea resolved. Hypokalemia, potassium 3.2. IV KCl replacement. 01/09 diarrhea has resolved. 3. History of multiple cancer: Patient is stated he was first diagnosed with bladder cancer and within interval of 2 to 3 years, was found to have prostate cancer and renal cancer. Then it was found esophageal cancer status post chemoradiation adjuvant therapy. Subsequently, brain tumor for which she had resection and adjuvant chemotherapy. History of bladder cancer at multiple sites with bladder neck contracture status post transurethral incision of bladder neck contracture and TURBT in March [address] Rebolledo. History of prostate cancer treated with radiation in recently and then recurrence subsequently underwent TURP. 4. Paroxysmal A-fib/CAD status post stent ? Currently wearing Holter monitor. Twelve-lead EKG ordered ?Resume usual cardiac medications except antihypertensive. 01/08: Paroxysmal A-fib with RVR: Twelve-lead EKG shows A-fib. Metoprolol dose increased to 50 mg twice daily.Patient was given digoxin loading dose yesterday. 01/09: Metoprolol succinate, his home medication increased to 50 mg daily. Hypertension currently hypotension. 01/08: Hypotension resolved. Dyslipidemia DM2 ? hold his home medications ?Continue on Lantus as well as sliding scale insulin ? monitor make adjustments as necessary ? Accu-Cheks ACHS 01/08: Patient has hypoglycemia, glucose 67. Lantus dose decreased to 10 units subcutaneous daily. 01/07: BMP glucose in fasting state is good 140. Fingersticks elevated therefore started on lispro insulin 10 units subcutaneous 3 times daily with meals. GERD: Continue with PPI Pancytopenia: Severe normocytic normochromic chronic anemia H&H 8.0/24.2 , leukopenia, 2.7K, ALC 240 cells, severe thrombocytopenia, platelet count is 46,000. Enoxaparin discontinued. Bilateral SCDs for DVT. Patient has bands 11% with lymphopenia. 01/08: Platelet count further dropped to 24,000. H&H 7.3/22%. 01/09: Platelet count is 21,000. Hemoglobin 7.5. No indication for blood transfusion. Hemoglobin and platelet count have been similar for last 2 days. Advised to repeat CBC in 1 week. Discharge medication reconciliation done. Discharge follow-up instructions completed. Discharge process discussed with the patient and all questions were answered to patient's satisfaction. Follow with PCP in 1 to 2 weeks Total time spent, exact 35 minutes on discharge meds reconciliation, examination, coordination of care with nurses and ancillary staff, review of imaging and blood test and discussion with the patient on follow-up instructions. Medications at Discharge Home Medications glimepiride 2 mg tablet 4 mg PO DAILY Diabetes 11/17/13 nitroglycerin 0.4 mg sublingual tablet 0.4 mg sublingual Q5M PRN Chest Pain 11/17/13 sildenafil 100 mg tablet (Viagra) 100 mg PO PRN PRN SEXUAL USE 11/17/13 dulaglutide 0.75 mg/0.5 mL subcutaneous pen injector (Trulicity) 0.75 mg subcut FLETCHER 09/09/21 pantoprazole 40 mg tablet,delayed release 40 mg PO BID Stomach 09/09/21 rosuvastatin 40 mg tablet 40 mg PO DAILY Cholesterol 09/09/21 dapagliflozin propanediol 10 mg tablet (Farxiga) 10 mg PO DAILY CKD 03/19/23 insulin glargine U-300 conc 300 unit/mL (3 mL) subcutaneous pen (Toujeo Max U-300 SoloStar) 44 unit subcut DAILY Diabetes 03/19/23 valacyclovir 500 mg PO BID ask pcp 01/07/24 cefdinir 300 mg capsule 300 mg PO Q12 2 days #4 caps 01/10/24 metoprolol succinate 25 mg tablet,extended release 24 hr 50 mg (2 x 25 mg) PO BID Heart rate 30 days #30 tabs 01/10/24 Physical Exam Narrative Seen and examined. No fever overnight. Cough is resolved. Blood pressure is controlled. Heart rate is controlled daily 70s to 80s. Physical exam General: Alert, Oriented x3, Cooperative HEENT: Atraumatic, PERRLA, EOMI, Normocephalic Oral: Oral mucosa dry. No Gingival or Mucosal Lesions/ Ulcerations Neck: Supple, No JVD, Negative Carotid Bruits Chest wall/Lungs: Air entry diminished in bilateral lung bases. Less crepitations.. Cardiovascular: Converted to sinus rhythm. Normal S1, Normal S2, No M/G/R Abdomen: Bowel Sounds hyperactive, Soft, Non Tender, Non-Distended : No dysuria. No renal angle tenderness. No suprapubic tenderness. Extremities: No edema, Capillary Refill Less than 3 Seconds Skin: No rashes, No breakdown Musculoskeletal: No Tenderness to Palpation of Joints or Extremities. ROM intact. Neurological: Cranial nerves II-XII grossly intact, DTR 2+/4. Status post frontal colectomy after surgery. No acute focal neurological deficit. Psych/Mental Status: Normal Affect, Appropriate. Weight / BMI Weight Weight: 150 lb 2.157 oz Body Mass Index (BMI) 23.8 ABG / Lab / Microbiology Data 01/10/24 07:45 01/10/24 07:45 Laboratory: Laboratory Results - last 24 hr 01/08/24 05:43: Diff Path Review Reviewed 01/09/24 07:56: Absolute Neuts (auto) 3.5, Absolute Lymphs (auto) 0.53 L, Total Counted 100, Neutrophils % (Manual) 76 H, Band Neutrophils % 3, Lymphocytes % (Manual) 12 L, Monocytes % (Manual) 6, Eosinophils % (Manual) 3, Diff Path Review May foll, Platelet Estimate MKD DEC, RBC Morphology N CHROM, Anisocytosis 2+ 01/09/24 11:27: POC Glucose 270 H 01/09/24 15:47: POC Glucose 177 H 01/09/24 20:09: POC Glucose 216 H 01/10/24 07:45: WBC 4.7, RBC 2.39 L, Hgb 7.5 L, Hct 22.9 L, MCV 95.8 H, MCH 31.4, MCHC 32.8, RDW Std Deviation 68.3 H, RDW Coeff of Jeanette 20.1 H, Plt Count 21 L*, Immature Gran % (Auto) 6.600 H, Neut % (Auto) 68.4, Lymph % (Auto) 10.4 L, Marshall % (Auto) 10.6 H, Eos % (Auto) 3.4, Baso % (Auto) 0.6, Absolute Neuts (auto) 3.2, Absolute Lymphs (auto) 0.49 L, Nucleated RBC % 0, Differential Comment SCANNED, Diff Path Review May derrell, Platelet Estimate MKD DEC, Anisocytosis 1+, Sodium 137, Potassium 3.8, Chloride 110 H, Carbon Dioxide 21.0, Anion Gap 6, BUN 13, Creatinine 1.09, Estim Creat Clear Calc 47.96, Est GFR (MDRD) Af Amer 84, Est GFR (MDRD) Non-Af 69, BUN/Creatinine Ratio 11.9, Glucose 135 H, Calcium 8.8 Microbiology: Microbiology 01/07/24 13:05 Blood Culture (Wb) - Anticubital Right Blood Culture - Preliminary No growth in 48 hours. 01/07/24 12:30 Blood Culture (Wb) - Anticubital Left Blood Culture - Preliminary No growth in 48 hours. 01/08/24 09:35 Mucosa - Nose Respiratory Panel (PCR) - Final 01/07/24 16:20 Stool Enteric Bacteriology - Final 01/07/24 16:20 Stool Clostridioides difficile (PCR) - Final 01/07/24 12:40 Mucosa - Nose SARS-CoV-2, Influenza & RSV (PCR) - Final D/C Instructions Discharge Diet: No restrictions Weight Bearing Status: Weight bearing as tolerated and - (Be careful and cautious to avoid falls.) Call your doctor if you observe: Fever of 101 or Higher, Coldness, Increased Pain, Numbness or Tingling, Change in Color, Inability to urinate, Inability to have a bowel movement, Shortness of breath, Dizziness, Fainting spells, Swelling in the ankles, Chest pain, Prolonged hiccupping, Increased palpitations (irregular heartbeat) and Calf discomfort When: IN 2 WEEKS Meaningful Use Info Meaningful Use Diagnoses (Choose all that apply): None applicable Discharge Plan Admission Admit Date/Time: 01/07/24 14:46 Primary Reason for Your Visit: The neutropenic fever. Attending Provider: Michael Dockery Primary Care Provider: Maria Eugenia Garcia Consulting Providers: Haile Godinez; Kareem Morales Discharge Orders/Prescriptions Prescriptions: New cefdinir 300 mg Capsule 300 mg PO Q12 2 Days Qty: 4 0RF Continued sildenafil [Viagra] 100 MG tablet 100 mg PO PRN PRN (Reason: SEXUAL USE) glimepiride 2 MG tablet 4 mg PO DAILY nitroglycerin 0.4 MG tablet 0.4 mg sublingual Q5M PRN (Reason: Chest Pain) pantoprazole 40 mg tablet,delayed release (DR/EC) 40 mg PO BID rosuvastatin 40 mg tablet 40 mg PO DAILY Trulicity 0.75 mg/0.5 mL Pen Injector 0.75 mg SUBCUT FLETCHER dapagliflozin propanediol [Farxiga] 10 mg Tablet 10 mg PO DAILY insulin glargine U-300 conc [Toujeo Max U-300 SoloStar] 300 unit/mL (3 mL) Insulin Pen 44 unit SUBCUT DAILY Changed metoprolol succinate 25 mg tablet extended release 24 hr 50 mg PO BID 30 Days Qty: 30 0RF Rx Instructions: Hold for heart less than 50 or systolic blood pressure less than 100 mmHg. Held valacyclovir 500 mg PO BID Hold Instructions: Hold for 1 week as patient is severely thrombocytopenic. Referrals / Follow Up: Maria Eugenia Garcia DO [Primary Care Provider] - Nick Hwang DO [Med Staff - Active Staff] - In 1 Week Disposition Disposition (needs filled in before D/C Order can be placed): Home, Self Care Charges/Coding Visit Charges Inpatient E&M: 17801 Disch Hosp >30min
[2024-01-10] MEDS: Pantoprazole Sodium 40 MG Tablet PO (09:09)
[2024-01-10] MEDS: Glucerna Shake 120 ML LIQUID PO (09:09)
[2024-01-10] MEDS: Potassium Chloride Oral Tablet 20 MEQ 40 MEQ PO (09:09)
--- NOTE | 2024-01-10 09:56 | CASEMGMT ---
Patient has order for discharge. RN CM in to discuss needs at discharge. Patient and deny needs or help at discharge. Patient and had no further questions or concerns.
--- NOTE | 2024-01-10 10:19 | PHA.DC_ITS ---
Pharmacy [facility] Med Reconciliation Pharmacy Service has performed discharge medication reconciliation for this patient. Medication education papers prepared, patient discharged when counseling was attempted. The patient's discharge medication list was reviewed for discrepancies and discrepancies were resolved. Medications at Discharge Home Medications glimepiride 2 mg tablet 4 mg PO DAILY Diabetes 11/17/13 nitroglycerin 0.4 mg sublingual tablet 0.4 mg sublingual Q5M PRN Chest Pain 11/17/13 sildenafil 100 mg tablet (Viagra) 100 mg PO PRN PRN SEXUAL USE 11/17/13 dulaglutide 0.75 mg/0.5 mL subcutaneous pen injector (Trulicity) 0.75 mg subcut FLETCHER 09/09/21 pantoprazole 40 mg tablet,delayed release 40 mg PO BID Stomach 09/09/21 rosuvastatin 40 mg tablet 40 mg PO DAILY Cholesterol 09/09/21 dapagliflozin propanediol 10 mg tablet (Farxiga) 10 mg PO DAILY CKD 03/19/23 insulin glargine U-300 conc 300 unit/mL (3 mL) subcutaneous pen (Toujeo Max U- 300 SoloStar) 44 unit subcut DAILY Diabetes 03/19/23 valacyclovir 500 mg PO BID ask pcp 01/07/24 cefdinir 300 mg capsule 300 mg PO Q12 2 days #4 caps 01/10/24 metoprolol succinate 25 mg tablet,extended release 24 hr 50 mg (2 x 25 mg) PO BID Heart rate 30 days #30 tabs 01/10/24
[2024-01-11 08:21] LABS: Pathologist Review Reviewed
[2024-01-11 08:50] LABS: Pathologist Review Reviewed
== END 2024-01-10 10:14 | disposition home or self-care (01) | DRG 810 ==
LOC: ED 14:30 → PCU 14:50
PROVIDERS: Admitting Provider Family Medicine; Emergency Provider Emergency Medicine; Visit Provider Internal Medicine
DX: D70.9 Neutropenia, unspecified (principal); D61.810 Antineoplastic chemotherapy induced pancytopenia; E11.649 Type 2 diabetes mellitus with hypoglycemia without coma; C67.9 Malignant neoplasm of bladder, unspecified; E86.1 Hypovolemia; E78.00 Pure hypercholesterolemia, unspecified; I95.9 Hypotension, unspecified; I10 Essential (primary) hypertension; I48.0 Paroxysmal atrial fibrillation; Z79.4 Long term (current) use of insulin; K21.9 Gastro-esophageal reflux disease without esophagitis; I25.10 Atherosclerotic heart disease of native coronary artery without angina pectoris; E87.6 Hypokalemia; R19.7 Diarrhea, unspecified; T45.1X5A Adverse effect of antineoplastic and immunosuppressive drugs, initial encounter; R50.81 Fever presenting with conditions classified elsewhere; Z79.84 Long term (current) use of oral hypoglycemic drugs; Z79.899 Other long term (current) drug therapy; Z79.85 Long-term (current) use of injectable non-insulin antidiabetic drugs; Z87.891 Personal history of nicotine dependence; Z92.3 Personal history of irradiation; Z85.46 Personal history of malignant neoplasm of prostate; Z85.01 Personal history of malignant neoplasm of esophagus; Z95.5 Presence of coronary angioplasty implant and graft
CPT/HCPCS: 36415; 71046; 80048; 82962; 83605; 83735; 84100; 85025; 85610; 85730; 87040; 87493; 87506; 87631; 87633; 93005; 97802; 99285; A4216; J1447; J2405

== ENCOUNTER 2024-02-27 01:08 | Emergency (ER) | payer MEDICARE, SELFPAY ==
[2024-02-27] VITALS (22 sets, daily range): BP systolic 69–122; BP diastolic 55–69; PULSE 106–149; RESP 10–24; TEMP 36.7–38; O2SAT 99–100; BMI 22.8
--- NOTE | 2024-02-27 01:43 | CT_ITS ---
EXAM: CT ANGIOGRAPHY CHEST WITHOUT AND WITH INTRAVENOUS CONTRAST CLINICAL INDICATION: dyspnea TECHNIQUE: Helically acquired angiography images were obtained of the chest without and with intravenous contrast. This CT exam was performed using one or more of the following dose reduction techniques: automated exposure control, adjustment of the mA and/or kV according to patient size, and/or use of iterative reconstruction technique. MIP reconstructed images were created and reviewed. CONTRAST: IV 75mL [id number] RADIATION DOSE: CTDIvol = 13.26 mGy, DLP = 448.90 mGy-cm COMPARISON: CTA chest 12/13/2023 FINDINGS: PULMONARY ARTERIES: Unremarkable. Normal in caliber. No evidence of pulmonary embolism. AORTA: Atherosclerotic changes of the thoracic aorta but no dissection or dilation. GREAT VESSELS OF AORTIC ARCH: Unremarkable. Normal in caliber. No evidence of dissection. LUNGS AND PLEURAL SPACES: Moderate pleural effusions and bilateral lower lobe air space disease. Bibasilar bronchiectasis. No mass. HEART: Increasing pericardial effusion, now measuring up to 1.8 cm in thickness. Coronary artery calcifications. Heart size is normal. MEDIASTINUM: Unremarkable. No mediastinal or hilar adenopathy. Esophagus is unremarkable. No hiatal hernia. THYROID: Unremarkable. No thyroid lesions. BONES/JOINTS: Diffuse degenerative changes of the spine. No suspicious lytic or blastic abnormality. CT/CTA Chest W/WO Contrast IMPRESSION: 1. Increasing pericardial effusion, now measuring up to 1.8 cm in thickness. 2. Moderate pleural effusions and bilateral lower lobe air space disease. This may indicate atelectasis or infection. 3. No evidence of pulmonary embolism. Electronically Signed: Navneet Tanner MD at 3:13 EDT ,
[2024-02-27] MEDS: 0.9% Normal Saline (500mL Bag) 500 ML 999 ML IV (01:55)
[2024-02-27] MEDS: Acetaminophen 325 MG Tablet 650 MG PO (01:55)
[2024-02-27] MEDS: Morphine 4 MG/ML Syringe IV (01:56)
[2024-02-27] MEDS: Ondansetron 4 MG/2 ML Vial IV (01:59)
[2024-02-27 02:01] LABS: Absolute Lymphocyte Count 0.52 X10^3/uL (0.83-4.51); Absolute Neutrophil Count 3.6 X10^3/uL (2.0-7.7); Basophil# 0.01 X10^3/uL; Basophil% 0.2 % (0-1); Eosinophil# 0.04 X10^3/uL; Eosinophils% 0.8 % (0-5); Hematocrit 21.1 % (40-54); Hemoglobin 6.7 g/dL (13.0-16.5); Lymphocyte # 0.52 X10^3/ul (0.83-4.51); Lymphocyte % 9.8 % (19-41); Mean Corp Hgb Conc 31.8 g/dL (32-36); Mean Corpuscular Hgb 34.4 pg (27.0-32.0); Mean Corpuscular Volume 108.2 fL (80-94); Mean Platelet Vol. 12.7 fl (6.2-12.0); Monocyte# 1.04 X10^3/uL; Monocyte% 19.6 % (0-10); NRBC Flagged by Analyzer 0.4 % (0-5); Neutrophil # 3.62 X10^3/uL (2.7-7.7); Neutrophil % 68.1 % (47-70); POSITIVE COUNT YES; POSITIVE DIFFERENTIAL YES; POSITIVE MORPHOLOGY YES; Platelet Count 91 K/mm3 (150-450); RBC Distribution Width CV 19.9 % (11.6-14.6); RBC Distribution Width SD 77.3 fl (35.1-43.9); Red Blood Count 1.95 M/mm3 (4.6-6.2); White Blood Count 5.3 K/mm3 (4.4-11.0)
[2024-02-27 02:05] LABS: Differential Indicated SCAN CRITERIA MET
[2024-02-27 02:07] LABS: Differential Comment SCANNED
[2024-02-27 02:24] LABS: Anion Gap 13 (5-15); BUN 35 mg/dL (7-18); Chloride 98 mmol/L (98-107); Creatinine, Serum 1.52 mg/dL (0.70-1.30); EST Glomerular Filtration Rate 47 mL/min (>60); Est Glom Filt Rate - Afr Amer 57 mL/min (>60); Estimated Creatinine Clearance 35.64 ml/min; Glucose 187 mg/dL (74-106); Potassium 3.3 mmol/L (3.5-5.1); Sodium Level 135 mmol/L (136-145)
[2024-02-27 02:29] LABS: BNP,B-Type NATRIURETIC PEPTIDE 193.3 pg/mL (0-100)
[2024-02-27] MEDS: Digoxin 250 MCG/ML Ampul 500 MCG IV (02:58)
[2024-02-27 03:26] LABS: Lactic Acid 2.4 mmol/L (0.4-1.9)
[2024-02-27 04:00] LABS: Procalcitonin 0.36 ng/mL (0.00-0.09)
[2024-02-27 04:08] LABS: International Normalized Ratio 1.3; Prothrombin Time (Protime)PT. 15.7 SECONDS (11.7-14.9)
[2024-02-27 04:09] LABS: Partial Thromboplast Time 45.1 Seconds (24.1-36.2)
[2024-02-27] MEDS: Piperacil/Tazobactam 3.375 GM in 0.9% Normal Saline (50mL MB+) 50 ML IV (04:28)
[2024-02-27] MEDS: Amiodarone 150 MG in Dextrose 5%-Water (100mL Bag) 100 ML 600 MG IV BOLUS (04:32)
[2024-02-27] MEDS: Vancomycin IV 1,000 MG/200 ML BAG 200 MG IV (05:19)
[2024-02-27] MEDS: Amiodarone 360 MG in Dextrose 5% Viaflo Bag 192.8 ML 33.3 MG CONT INF (05:29)
[2024-02-27 05:54] LABS: Reflex Lactate? Y
[2024-02-27 06:34] LABS: Lactic Acid 1.6 mmol/L (0.4-1.9)
--- NOTE | 2024-02-27 06:54 | ED.RN ---
Argelia from hospice stating that their intake nurses will be on within the next hour and will be calling the ER to set up for evaluation for inpatient hospice.
--- NOTE | 2024-02-27 08:37 | EX.ED.DYSGE1 ---
HPI History of Present Illness Chief Complaint: Cough Informant: patient and spouse/S.O. 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 He also has history of paroxysmal atrial fibrillation and is not on any type of anticoagulation secondary to high risk for spontaneous bleeding. Patient reports that he is still undergoing chemotherapy and his last dose was roughly 3 weeks ago with the next 1 scheduled 6 days from now. Patient states he does not sleep in a bed as he cannot lay flat but typically sleeps in his recliner. 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 He states that he could not get comfortable at home and secondary to the persistent pain and sensation of shortness of breath presents for evaluation [facility] Medical History Atrial fibrillation Neutropenic fever Wears glasses Wears dentures History of renal disease Alcohol use Insulin dependent diabetes mellitus Arthritis Bladder disease Anemia High cholesterol Back pain Injury of head and neck Dietary restriction History of GI bleed Former smoker Leg cramps History of edema History of stress test History of echocardiogram Cardiology follow-up encounter History of esophageal dilatation GERD (gastroesophageal reflux disease) History of gastrointestinal hemorrhage History of prostate cancer Kidney disease Diabetes Hypertension Cancer Home Medications ?Medication ?Instructions ?Recorded ?Last Taken ?Type glimepiride 2 mg tablet 4 mg PO DAILY Diabetes 11/17/13 Unknown History nitroglycerin 0.4 mg sublingual 0.4 mg sublingual Q5M PRN Chest 11/17/13 Unknown History tablet Pain sildenafil 100 mg tablet (Viagra) 100 mg PO PRN PRN SEXUAL USE 11/17/13 Unknown History dulaglutide 0.75 mg/0.5 mL 0.75 mg subcut FLETCHER 09/09/21 Unknown History subcutaneous pen injector (Trulicity) pantoprazole 40 mg tablet,delayed 40 mg PO DAILY Stomach 09/09/21 03/28/23 History release rosuvastatin 40 mg tablet 40 mg PO DAILY Cholesterol 09/09/21 Unknown History dapagliflozin propanediol 10 mg 10 mg PO DAILY CKD 03/19/23 Unknown History tablet (Farxiga) insulin glargine U-300 conc 300 36 unit subcut QHS Diabetes 03/19/23 Unknown History unit/mL (3 mL) subcutaneous pen (Toujeo Max U-300 SoloStar) valacyclovir 500 mg PO DAILY ask pcp 01/07/24 Unknown History cefdinir 300 mg capsule 300 mg PO Q12 2 days #4 caps 01/10/24 Unknown Rx metoprolol succinate 25 mg 50 mg (2 x 25 mg) PO BID Heart 01/10/24 Unknown Rx tablet,extended release 24 hr rate 30 days #30 tabs furosemide 20 mg tablet 40 mg PO Q12H 02/27/24 Unknown History oxybutynin chloride 10 mg 10 mg PO DAILY 02/27/24 Unknown History tablet,extended release 24 hr potassium chloride 20 mEq 20 meq PO DAILY 02/27/24 Unknown History tablet,extended release Allergy/AdvReac Type Severity Reaction Status Date / Time chlorhexidine Allergy Rash Verified 02/27/24 01:10 Family History Other COPD (chronic obstructive pulmonary disease) Surgical History History of cardiac catheterization History of transurethral resection of bladder tumor (TURBT) History of AAA (abdominal aortic aneurysm) repair History of herniorrhaphy History of coronary artery stent placement Social History Smoking Status: Former smoker alcohol intake: current alcohol intake frequency: 0-2 drinks per day Alcohol type: hard liquor ROS ROS ED Constitutional Constitutional ED: Denies chills or fever(s) ENT ENT ED: Denies sore throat Cardiovascular Cardiovascular: Reports chest pain; Denies palpitations or racing heartbeat Respiratory/Chest Respiratory/Chest: Reports cough and dyspnea Gastrointestinal Gastrointestinal: Reports abdominal pain; Denies diarrhea, nausea or vomiting Genitourinary Genitourinary ED: Denies dysuria or hematuria Musculoskeletal Musculoskeletal: Denies back pain or myalgias Integumentary Denies rash Neurologic Neurologic: Denies headache(s) Hematologic/Lymphatic Hematologic/Lymphatic: Reports easy bleeding and easy bruising EXAM Physical Exam Const Vital Signs: 02/27/24 01:08 02/27/24 01:10 02/27/24 01:15 Temperature 99.7 F H 99.7 F H Temperature Source Oral Oral Pulse Rate 109 H 108 H Respiratory Rate 20 H 22 H Blood Pressure 95/56 L 101/67 Blood Pressure Mean 69 78 Blood Pressure Source Blood Pressure Position Blood Pressure Location Pulse Ox 100 99 Oxygen Delivery Method Room Air Room Air Room Air Oxygen Flow Rate (L/min) 02/27/24 01:49 02/27/24 02:15 02/27/24 03:00 Temperature 100.4 F H 100.2 F H 98.5 F Temperature Source Oral Oral Oral Pulse Rate 106 H 140 H 146 H Respiratory Rate 16 21 H 21 H Blood Pressure 92/61 122/57 H 77/62 L Blood Pressure Mean 71 78 67 Blood Pressure Source Blood Pressure Position Blood Pressure Location Pulse Ox 99 99 99 Oxygen Delivery Method Nasal Cannula Nasal Cannula Nasal Cannula Oxygen Flow Rate (L/min) 2 2 2 02/27/24 03:08 02/27/24 03:59 02/27/24 04:00 Temperature 98.5 F 99.1 F 99.1 F Temperature Source Oral Oral Pulse Rate 144 H 132 H 132 H Respiratory Rate 21 H 21 H 21 H Blood Pressure 77/62 L 95/69 95/69 Blood Pressure Mean 67 77 77 Blood Pressure Source Blood Pressure Position Blood Pressure Location Pulse Ox 99 100 100 Oxygen Delivery Method Nasal Cannula Nasal Cannula Oxygen Flow Rate (L/min) 2 2 02/27/24 04:32 02/27/24 05:00 02/27/24 05:06 Temperature 98.5 F 98.2 F 98.2 F Temperature Source Oral Oral Oral Pulse Rate 149 H 132 H 125 H Respiratory Rate 10 L 17 17 Blood Pressure 82/55 L 90/62 90/62 Blood Pressure Mean 64 71 71 Blood Pressure Source Monitor Monitor Blood Pressure Position Semi-Fowlers Sitting Blood Pressure Location Left Arm Left Arm Pulse Ox 99 100 99 Oxygen Delivery Method Nasal Cannula Nasal Cannula Room Air Oxygen Flow Rate (L/min) 2 2 02/27/24 05:21 02/27/24 05:29 02/27/24 05:31 Temperature 98.2 F 98.2 F Temperature Source Oral Oral Pulse Rate 123 H 133 H 132 H Respiratory Rate 16 13 21 H Blood Pressure 88/57 L 69/57 L 91/65 Blood Pressure Mean 67 61 73 Blood Pressure Source Monitor Monitor Blood Pressure Position Semi-Fowlers Semi-Fowlers Blood Pressure Location Left Arm Left Arm Pulse Ox 100 100 99 Oxygen Delivery Method Nasal Cannula Nasal Cannula Nasal Cannula Oxygen Flow Rate (L/min) 2 2 02/27/24 06:25 02/27/24 06:31 02/27/24 07:00 Temperature 98.4 F Temperature Source Oral Pulse Rate 122 H 125 H 129 H Respiratory Rate 24 H 20 H 18 Blood Pressure 96/57 L 88/56 L 92/56 L Blood Pressure Mean 70 66 68 Blood Pressure Source Monitor Blood Pressure Position Semi-Fowlers Blood Pressure Location Left Arm Pulse Ox 100 100 100 Oxygen Delivery Method Nasal Cannula Nasal Cannula Nasal Cannula Oxygen Flow Rate (L/min) 2 02/27/24 08:00 02/27/24 08:06 Temperature 98.0 F 98.0 F Temperature Source Temporal Temporal Pulse Rate 112 H 112 H Respiratory Rate 15 15 Blood Pressure 92/65 95/65 Blood Pressure Mean 74 75 Blood Pressure Source Monitor Blood Pressure Position Sitting Blood Pressure Location Pulse Ox 100 100 Oxygen Delivery Method Room Air Room Air Oxygen Flow Rate (L/min) Positive well nourished and well developed General Appearance ED: well developed and pallor HEENT Reports dry mucous membranes HEENT Narrative: Mucous membranes are dry and tacky without tongue or lip swelling oral lesions airway edema or compromise No secondary findings in the posterior pharynx to suggest infection Mouth ED: Yes dry mucous membranes Mouth: dry mucous membranes Eyes PERRL and EOMs intact bilaterally Eyes Narrative: Positive subconjunctival pallor noted General Eye ED: Yes pale conjunctiva; Negative for scleral icterus Neck supple and no JVD Neck Narrative: No nuchal rigidity or meningeal signs Chest Wall Chest Narrative: Patient has reproducible anterior lateral chest wall pain rib regions 8-12 along the right side that he states is the same pain he has been experiencing at home without obvious bony deformity or crepitance Resp Resp Narrative: Breath sounds are diminished throughout and patient has mild tachypnea. There is bilateral crackles noted in the bases as well Cardio regular rhythm Rate: tachycardic and other Other Details: Tachycardic rate with regular rhythm GI non-distended GI Narrative: Abdomen is soft and nondistended with hypoactive bowel sounds. There is faint mast palpation towards the right upper/lateral region of the abdomen without voluntary guarding or rigidity No pulsatile mass or fluid wave Auscultation: hypoactive bowel sounds Palpation: soft Back/Spine no CVA tenderness Extremity Extremity Narrative: +2 pitting edema to the bilateral lower extremities that is equal and symmetric Negative Homans' sign bilaterally Neuro oriented x3, CN's II-XII intact bilaterally and no sensory deficits noted Sensorium / Orientation: alert Psych mental status grossly normal Skin no rashes or lesions noted and no wounds General Skin Exam: pallor; Negative for jaundice MDM MDM MDM Narrative Medical decision making narrative: Patient arrived to the ER with a soft blood pressure as well as a low-grade temperature. With his history of chemotherapy and cancer there is concern that the low-grade temperature could be secondary to an infection such as pneumonia or UTI or herald a neutropenic fever. As he is also receiving chemotherapy secondary to systemic cancer and has paroxysmal atrial fibrillation there is concern this local temperature could be due to atrial fibrillation. With his history of right sided chest/abdomen pain after coughing there is high likelihood for a pathologic fracture as well. Secondary to these concerns basic blood work was obtained with a CTA of the chest. Patient's white count is normal and neutrophil count is normal at 3.6 going against neutropenic fever. Viral swabs were obtained to check for COVID versus flu versus RSV which were normal as well. CT did not reveal any type of pneumothorax or rib fracture but did show bilateral pleural effusions which changes concerning for developing infection. With this there is also an increase to his pericardial effusion from 8 mm to 1.8 cm. Based on the patient's fever potential infectious process in the lung field and his increasing pericardial effusion I did discuss the case with the hospitalist about potential admission. As we do not have cardiothoracic surgery the hospitalist does not want to admit unless the patient is willing to be made comfort care only and discuss hospice placement. Initially the patient was not on board with this so I contacted [facility] in [place] which is a [facility] facility where he receives his chemotherapy but they do not have beds available. I offered transfer to another [facility] site the patient and his states that that is too far to go and they do not want to be transferred. I offered potential [facility] or [facility] but once again they do not want to be transferred at this time. The patient states he is willing to become a comfort care only patient and consider evaluation by hospice. The patient was given 1 unit of blood secondary to his hemoglobin being 6.7 and as there was concern for pneumonia on with his low-grade temperature and CT scan he was also covered broad-spectrum antibiotics of vancomycin and Zosyn. The patient did spontaneously convert into A-fib with RVR and therefore started on digoxin as his blood pressure was borderline hypotensive. He then was placed on amiodarone bolus and amiodarone drip as he remained tachycardic. At this time the patient has now signed DNR comfort care only forms. He will finish out his blood antibiotics and fluid but after this he will not be placed on any type of pressor or rate control medication or further antibiotics. He will be evaluated by hospice and potentially placed in their inpatient unit. If no beds are available then we will discuss admission in our facility so patient can get home health care set up through hospice center. Patient and family were informed of this plan of care and they are agreeable to it History & Record Review Discussion w/independent historian: Patient and Significant other Lab Data Attestation: I reviewed the patient's lab results. Labs: Laboratory Results - last 24 hr 02/27/24 02/27/24 02/27/24 01:25 01:28 03:00 WBC 5.3 RBC 1.95 L Hgb 6.7 L Hct 21.1 L MCV 108.2 H MCH 34.4 H MCHC 31.8 L RDW Std Deviation 77.3 H RDW Coeff of Jeanette 19.9 H Plt Count 91 L MPV 12.7 H Immature Gran % (Auto) 1.500 H Neut % (Auto) 68.1 Lymph % (Auto) 9.8 L [place] % (Auto) 19.6 H Eos % (Auto) 0.8 Baso % (Auto) 0.2 Absolute Neuts (auto) 3.6 Absolute Lymphs (auto) 0.52 L Nucleated RBC % 0.4 Differential Comment SCANNED PT 15.7 H INR 1.3 APTT 45.1 H Sodium 135 L Potassium 3.3 L Chloride 98 Carbon Dioxide 24.0 Anion Gap 13 BUN 35 H Creatinine 1.52 H Estim Creat Clear Calc 35.64 Est GFR (MDRD) Af Amer 57 L Est GFR (MDRD) Non-Af 47 L BUN/Creatinine Ratio 23.0 H Glucose 187 H Lactic Acid 2.4 H* Calcium 9.0 Magnesium 2.0 B-Natriuretic Peptide 193.3 H Procalcitonin 0.36 H Blood Type B POSITIVE Antibody Screen NEGATIVE Crossmatch See Detail 02/27/24 06:07 WBC RBC Hgb Hct MCV MCH MCHC RDW Std Deviation RDW Coeff of Jeanette Plt Count MPV Immature Gran % (Auto) Neut % (Auto) Lymph % (Auto) [place] % (Auto) Eos % (Auto) Baso % (Auto) Absolute Neuts (auto) Absolute Lymphs (auto) Nucleated RBC % Differential Comment PT INR APTT Sodium Potassium Chloride Carbon Dioxide Anion Gap BUN Creatinine Estim Creat Clear Calc Est GFR (MDRD) Af Amer Est GFR (MDRD) Non-Af BUN/Creatinine Ratio Glucose Lactic Acid 1.6 Calcium Magnesium B-Natriuretic Peptide Procalcitonin Blood Type Antibody Screen Crossmatch Radiography Diagnostic Testing: Clinical Impression(s) from Imaging Studies Chest CTA 02/27/24 01:43 IMPRESSION: 1. Increasing pericardial effusion, now measuring up to 1.8 cm in thickness. 2. Moderate pleural effusions and bilateral lower lobe air space disease. This may indicate atelectasis or infection. 3. No evidence of pulmonary embolism. Electronically Signed: Navneet Tanner MD at 3:13 EDT , Management Discussion w/another healthcare provider: Hospitalist Discharge Plan Triage Chief Complaint: Cough ED Provider: [facility] [address] Dx/Rx/DC Orders Clinical Impression: Metastatic cancer, Atrial fibrillation with RVR, Anemia, Pericardial effusion, Pleural effusion Prescriptions: No Action sildenafil [Viagra] 100 MG tablet 100 mg PO PRN PRN (Reason: SEXUAL USE) glimepiride 2 MG tablet 4 mg PO DAILY nitroglycerin 0.4 MG tablet 0.4 mg sublingual Q5M PRN (Reason: Chest Pain) pantoprazole 40 mg tablet,delayed release (DR/EC) 40 mg PO DAILY rosuvastatin 40 mg tablet 40 mg PO DAILY Trulicity 0.75 mg/0.5 mL Pen Injector 0.75 mg SUBCUT FLETCHER dapagliflozin propanediol [Farxiga] 10 mg Tablet 10 mg PO DAILY insulin glargine U-300 conc [Toujeo Max U-300 SoloStar] 300 unit/mL (3 mL) Insulin Pen 36 unit SUBCUT QHS furosemide 20 mg tablet 40 mg PO Q12H oxybutynin chloride 10 mg tablet extended release 24hr 10 mg PO DAILY potassium chloride 20 mEq tablet extended release 20 meq PO DAILY valacyclovir 500 mg PO DAILY cefdinir 300 mg Capsule 300 mg PO Q12 2 Days Qty: 4 0RF metoprolol succinate 25 mg tablet extended release 24 hr 50 mg PO BID 30 Days Qty: 30 0RF Rx Instructions: Hold for heart less than 50 or systolic blood pressure less than 100 mmHg. Primary Care Provider: Maria Eugenia Garcia Referrals: Maria Eugenia Garcia DO [Primary Care Provider] - Print Language: Dominican Disposition Disposition: Hospice in Medical Facility
--- NOTE | 2024-02-27 10:45 | ED.RN ---
GARY D/C DUE TO PT BEING TRANSFERRED TO INPATIENT HOSPICE.
== END 2024-02-27 13:10 | disposition hospice, inpatient (51) ==
PROVIDERS: Emergency Provider Emergency Medicine; Visit Provider Emergency Medicine
DX: J90 Pleural effusion, not elsewhere classified (principal); C79.00 Secondary malignant neoplasm of unspecified kidney and renal pelvis; C79.31 Secondary malignant neoplasm of brain; C79.11 Secondary malignant neoplasm of bladder; I48.0 Paroxysmal atrial fibrillation; C61 Malignant neoplasm of prostate; E11.9 Type 2 diabetes mellitus without complications; Z87.891 Personal history of nicotine dependence; I31.39 Other pericardial effusion (noninflammatory); D64.9 Anemia, unspecified; E78.00 Pure hypercholesterolemia, unspecified; K21.9 Gastro-esophageal reflux disease without esophagitis; I10 Essential (primary) hypertension; Z66 Do not resuscitate; Z51.5 Encounter for palliative care; R06.00 Dyspnea, unspecified; R10.9 Unspecified abdominal pain; R07.9 Chest pain, unspecified; R50.9 Fever, unspecified
CPT/HCPCS: 96361; 96365; 96367; 96375; 36430; 71275; 80048; 83605; 83735; 83880; 84145; 85025; 85610; 85730; 86850; 86900; 86901; 86920; 86922; 87040; 87070; 87205; 87631; 96368; 99284; P9016; Q9967; A4216; J2405